=== PATIENT | female | born 1955 | race Two or more races ===

== ENCOUNTER 2019-06-19 10:18 | Inpatient (IN) | payer MEDICARE, MEDICAID ==
[~2019-06-19] VITALS: Ht 154.9 cm; Wt 69.9 kg
--- NOTE | 2019-06-19 10:23 | NUR ---
dr millard at bedside for eval.
[2019-06-19] MEDS ORDERED: IV NS 0.9% 500 ML BAG IV ONE (10:30)
[2019-06-19] MEDS ORDERED: ALBUTEROL FS 2.5 MG/3 ML VIAL.NEB NEB ONE (10:30)
[2019-06-19] MEDS ORDERED: IPRATROPIUM NEB FS 0.5 MG/2.5 ML AMPUL.NEB NEB ONE (10:30)
[2019-06-19] MEDS ORDERED: ACET-2605 PO (10:37)
[2019-06-19] MEDS ORDERED: IPRA3AMP23 IH (10:37)
[2019-06-19] MEDS ORDERED: BISA10SU11 RC (10:37)
[2019-06-19] MEDS ORDERED: MAGN400O6 PO (10:37)
[2019-06-19] MEDS ORDERED: CLON0.1T PO (10:37)
[2019-06-19] MEDS ORDERED: RISP0.2515 PO (10:37)
[2019-06-19] MEDS ORDERED: FURO-144 PO (10:37)
[2019-06-19] MEDS ORDERED: ACET-868 PO (10:37)
[2019-06-19] MEDS ORDERED: GUAI100S11 PO (10:37)
[2019-06-19] MEDS ORDERED: NA P133E RC (10:37)
[2019-06-19] MEDS ORDERED: AMLO10TA7 PO (10:37)
[2019-06-19] MEDS ORDERED: METO25TA20 PO (10:37)
[2019-06-19] MEDS ORDERED: HYDR100T27 PO (10:37)
[2019-06-19] MEDS ORDERED: ALBUTEROL FS 2.5 MG/3 ML VIAL.NEB ONE (10:39)
[2019-06-19] MEDS ORDERED: IPRATROPIUM NEB FS 0.5 MG/2.5 ML AMPUL.NEB ONE (10:39)
--- NOTE | 2019-06-19 10:40 | NUR ---
blood drawn. lab called for pick pack worker.
[2019-06-19 10:45] LABS: BASOPHILS % (AUTO) 0.3 % (0.0-2.0); HEMATOCRIT 38 % (33-45); HEMOGLOBIN 12.3 g/dL (11.5-14.8); LYMPHOCYTES # (AUTO) 1.1 /CMM (0.8-4.8); LYMPHOCYTES % (AUTO) 7.3 % (20.0-44.0); MEAN CORPUSCULAR HGB CONC 32 g/dl (31.0-36.0); MEAN CORPUSCULAR VOLUME 86 fL (82-100); MONOCYTES # (AUTO) 1.9 /CMM (0.1-1.30); MONOCYTES % (AUTO) 12.3 % (2.0-12.0); NEUTROPHILS # (AUTO) 12.3 /CMM (1.8-8.9); NEUTROPHILS % (AUTO) 80.1 % (43.0-81.0); PLATELET COUNT (AUTO) 323 /CMM (150-450); RED BLOOD CELL COUNT(AUTO) 4.49 MIL/uL (4.0-5.2); WHITE BLOOD COUNT (AUTO) 15.3 K/uL (4.3-11.0)
[2019-06-19 10:53] LABS: CALCIUM, SERUM 9.2 mg/dL (8.5-10.1); CARBON DIOXIDE 36 mmol/L (21-32); CHLORIDE 100 mmol/L (98-107); CREATININE 0.8 mg/dL (0.6-1.3); GLUCOSE 180 mg/dL (74-106); POTASSIUM 3.6 mmol/L (3.5-5.1); SODIUM SERUM 142 mmol/L (136-145); UREA NITROGEN, BLOOD 14 mg/dL (7-18)
--- NOTE | 2019-06-19 10:58 | NUR ---
radiology at bedside for chest xray.
--- NOTE | 2019-06-19 11:00 | NUR ---
pt unable to provide urine sample at this time.
[2019-06-19 11:07] LABS: ALANINE AMINOTRANSFERASE 8 U/L (12-78); ALBUMIN 3.1 g/dL (3.4-5.0); ALKALINE PHOSPHATASE 82 U/L (46-116); ASPARTATE AMINOTRANSFERASE 11 U/L (15-37); B-TYPE NATRIURETIC PEPTIDE 2539 PG/ML (0-125); BILIRUBIN,DIRECT 0.1 mg/dL (0.0-0.2); BILIRUBIN,TOTAL 0.4 mg/dL (0.2-1.0); TOTAL PROTEIN, SERUM 7.5 g/dL (6.4-8.2)
--- NOTE | 2019-06-19 11:07 | NUR ---
CALLED NURSING SUP FOR TELE BED.
--- NOTE | 2019-06-19 11:28 | NUR ---
PAGED [facility].
--- NOTE | 2019-06-19 11:45 | NUR ---
GAS PLANT REPAIRER NOTE PATIENT TRANSFERED FROM ER FOR COPD EXACERBATION. IV RAC PATENT AND FLUSHING. PATIENT REFUSED TO PUT ON TELY BOX. REFUSES MEDICATION. CONTINUOUSLY IS ATTEMPTING TO STAND UP UNSAFE, BED ALARM ON. ATTEMTPING TO PULL OUT IV. IS CONFUSED AND BLOOD PRESSURE IS ELEVATED. MD AWARE. RESTAINTS IN PLACE
--- NOTE | 2019-06-19 11:48 | NUR ---
REPORT GIVEN TO RAHUL LUCERO FOR ANGEL
[2019-06-19] MEDS ORDERED: CEFTRIAXONE 1GM BAG (ER ONLY) 50 ML IV ONE (11:57)
[2019-06-19] MEDS ORDERED: CEFTRIAXONE 1GM BAG (ER ONLY) 1 GM/50 ML PIGGYBACK IV ONE (12:00)
[2019-06-19] MEDS ORDERED: AZITHROMYCIN 500 MG in IV D5W 250 ML IV ONE (12:00)
--- NOTE | 2019-06-19 12:10 | NUR ---
NURSING SUP GAVE TELE BED 114-2.
--- NOTE | 2019-06-19 12:29 | NUR ---
SECOND ATTEMPT TO PAGE DIANEN.
[2019-06-19 13:26] VITALS: BP 148/77
[2019-06-19] MEDS ORDERED: MISCELLANEOUS MED 1 EA EA PO PRN (14:00)
[2019-06-19] MEDS ORDERED: ACETAMINOPHEN 325 MG TABLET PO PRN ×2 (14:00)
[2019-06-19] MEDS ORDERED: HYDROCODONE/APAP 5/325MG 1 EACH TABLET PO PRN (14:00)
[2019-06-19] MEDS ORDERED: MAG HYDROX/AL HYDROX/SIMETH 30 ML UDC PO PRN (14:00)
[2019-06-19] MEDS ORDERED: GUAIFENESIN 300 MG/15 ML UDC PO PRN (14:00)
[2019-06-19] MEDS ORDERED: Medication Not On Formulary EA (Ipratropium/Albuterol Sulfate (Duoneb 2.5-0.5 Mg/3 Ml So IH PRN (14:00)
[2019-06-19] MEDS ORDERED: CLONIDINE HCL 0.1 MG TABLET PO PRN (14:00)
[2019-06-19] MEDS ORDERED: ZOLPIDEM TARTRATE 5 MG TABLET PO PRN (14:00)
[2019-06-19] MEDS ORDERED: BISACODYL SUPP (10 MG) 10 MG/SUPP.RECT SUPP.RECT RC PRN (14:00)
[2019-06-19] MEDS ORDERED: Z GUARD REMEDY 2 OZ OINT TP PRN (14:00)
[2019-06-19] MEDS ORDERED: NA PHOS,M-B/NA PHOS,DI-BA 1 EA ENEMA RC PRN (14:00)
[2019-06-19] MEDS ORDERED: MAGNESIUM HYDROXIDE 30 ML UDC PO PRN ×2 (14:00)
[2019-06-19] MEDS ORDERED: ONDANSETRON HCL/PF 4 MG/2 ML VIAL IVP PRN (14:00)
[2019-06-19] MEDS ORDERED: IPRATROPIUM NEB FS 0.5 MG/2.5 ML AMPUL.NEB NEB PRN (14:30)
[2019-06-19] MEDS ORDERED: ALBUTEROL FS 2.5 MG/3 ML VIAL.NEB NEB PRN (14:30)
[2019-06-19] MEDS ORDERED: LORAZEPAM INJ 2 MG/ML VIAL IV PRN (15:00)
[2019-06-19] MEDS ORDERED: hydrALAZINE HCL IV 20 MG VIAL IV PRN (15:30)
[2019-06-19 16:00] VITALS: BP 145/75
--- NOTE | 2019-06-19 16:00 | NUR ---
RN NOTE PATIENT IS REFUSING TO EAT AND DRINK. RN REQUEST IVP BLOOD PRESSURE MEDICATION IN CASE MD AWARE NEW ODERS PLACEED.
[2019-06-19 17:00] VITALS: BP 182/84
[2019-06-19] MEDS: risperiDONE 1 MG TABLET PO SCH (17:00)
[2019-06-19] MEDS: hydrALAZINE HCL 50 MG TABLET PO SCH (18:16)
[2019-06-19] MEDS ORDERED: ACETAMINOPHEN 650 MG/SUPP.RECT RC PRN (18:30)
[2019-06-19] MEDS ORDERED: ENALAPRILAT DIHYD. (2.5MG/ML) 1.25 MG/ML VIAL IV ONE (18:30)
--- NOTE | 2019-06-19 18:30 | NUR ---
RN NOTE BLOOD PRESSURE RN CONTACTED HYDRALAZINE IV PUSH NOT EFFECTIVE IN DROPPING BLOOD PRESSURE. AWARE, ORDER FOR VASOTECT BY PRIMARY IV PUSHED BY RN. PPATIENT IS REFUSING ALL PO MEDICAATION AND REFUSING TO EAT WELL. CALL LIGHT WITHIN REACH ALL NEEDS MET AT THIS TIME. BED IN LOW POSTION.
--- NOTE | 2019-06-19 19:16 | NUR ---
RN CLOSING NOTE RN ENDORSE TO NIIGHT SHIFT REGARDING BLOOD PRESSURE AND TO PAGE IF INNEFFECTIVE. HEART RATE HAS GONE DOWN RN GAVE TYLENOL SUPPOSITORY , ICE PACKS WELL TO DECREASE HEART RATE AND LOWER TEMP. WAS EFFECTIVE HR DROPED TO 125 AND FEVER 99. WILL ENDORSE TO NIGHT NURSE USE CAUTON WITH BP MEDICATION DUE TO IVP DURING DAY.
--- NOTE | 2019-06-19 19:30 | NUR ---
RN PM OPENING NOTE BEDSIDE REPORT RECIEVED FROM RAHUL LUCERO. PATIENT SEEN IN BED LETHARGIC IN BILATERAL WRIST RESTRAINTS D/T BEING COMBATIVE AND NON COMPLIANT EARLIER IN THE DAY PER REPORT. IV IS HEPLOCKED. PATIENT ON 4LNC IN SEMI FOWLERS POSITION NOTED TO BE TACHYPNEIC WITH INCREASED HR IN KATHLEEN 150'S PER SPO2 MONITOR AT BEDSIDE. PATIENT CURRENTLY A MED SURGE PATIENT. BED DOWN LOCKED CALL LIGHT WITHIN REACH. WILL CONT TO MONITOR.
[2019-06-19 20:00] VITALS: BP 151/62
[2019-06-19] MEDS: METOPROLOL TARTRATE 50 MG TABLET PO SCH (21:00)
--- NOTE | 2019-06-19 21:05 | NUR ---
JOSIE LITTLE, PATIENT IS TOO LETHARGIC TO TAKE ORAL MEDICATIONS. RESPIRATORY THERAPIST IN AND RECOMMENDED PATIENT HAVE ABG PERFORMED TO SEE PATIENT STATUS. AT THIS TIME SHE IS SAT 90% ON 4 LN WITH HR OF 144. Addendum: 06/19/19 at 2124 by LISANDRO HER RN SPOKE WITH MICKEY UPDATED ON PATIENT CONDITION NEW ORDER FOR STAT ABG RECIEVED. WILL CONT TO MONITOR.
[2019-06-19 21:34] LABS: ABG OXYGEN SATURATION 86.6 % (92.0-98.5); ABG PCO2 81.8 mmHg (35.0-45.0); ABG PO2 60.3 mmHg (75.0-100.0); AaDO2 130.8 mmHg; COHb 0.8 % (0.5-1.5); MetHb 0.5 % (0.0-1.5); O2Hb 85.5 % (94.0-97.0); SITE, ABG Right Radial; VENT MODE, BG NASAL CANNULA @ 40%
--- NOTE | 2019-06-19 21:47 | NUR ---
NEW ORDERS TO TRANFER TO ICU. MICKEY CALLED REVIEWED ABG RESULTS. PATIENT HAS CO2 OF 81.8. NEW ORDER FOR RESCUE BIPAP RECIEVED, TRANSFER TO ICU. STAT CXR AND NEW ABG TO BE DONE IN ONE HOUR. WATERPROOF COATING MACHINE TENDER NOTIFIED OF NEW TRANSFER ORDER.
--- NOTE | 2019-06-19 21:50 | NUR ---
RT NOTE OBTAINED ABG AND RESULTS. RESULTS GIVEN TO NIC MCMAHON. WAITING FOR PENDING ORDERS AT THIS TIME. WILL CONTINUE TO MONITOR CLOSELY.
[2019-06-19] MEDS: AMLODIPINE BESYLATE 10 MG TABLET PO SCH (22:00)
--- NOTE | 2019-06-19 22:00 | NUR ---
NORVASC AND LOPRESSOR HELD. PT LETHARGIC. NORVASC AND METOPROLOL HELD PATIENT TOO LETHARGIC TO SWALLOW MEDS AND WATER SAFELY, NOT FOLLOWING INSTRUCTIONS.
--- NOTE | 2019-06-19 22:10 | NUR ---
REPORT GIVEN TO ED RN. PATIENT TO BE TRANSFERRED TO ROOM 252
[2019-06-19 22:45] VITALS: BP 122/62
[2019-06-19 23:00] VITALS: BP 93/53
[2019-06-19 23:50] LABS: ABG BASE EXCESS 5.3 mmol/L; ABG OXYGEN SATURATION 89.7 % (92.0-98.5); ABG PH 7.361 (7.350-7.450); ABG PO2 57.2 mmHg (75.0-100.0); AaDO2 161.3 mmHg; COHb 0.6 % (0.5-1.5); MetHb 0.4 % (0.0-1.5); O2Hb 88.8 % (94.0-97.0); SITE, ABG Right Radial; VENT MODE, BG ST 20/5 40% RR 20
[2019-06-20] VITALS (32 sets, daily range): BP systolic 90–161; BP diastolic 51–109
[2019-06-20 01:55] LABS: APPEARANCE,URINE CLOUDY (CLEAR); BILIRUBIN,URINE NEGATIVE (NEGATIVE); BLOOD, URINE MODERATE Ery/uL (NEGATIVE); COLOR,URINE YELLOW (YELLOW); KETONES,URINE 15 (NEGATIVE); LEUKOCYTE ESTERASE ,URINE NEGATIVE (NEGATIVE); NITRITE, URINE NEGATIVE (NEGATIVE); PH,URINE 5.5 (5.0-8.0); PROTEIN,URINE 100 mg/dl (NEGATIVE); UGLUCOSE NEGATIVE (NEGATIVE); UROBILINOGEN,URINE 0.2 EU/dL (0.2)
[2019-06-20 02:07] LABS: BACTERIA,URINE Few /HPF (None Seen); SQUAMOUS EPITHELIAL CELL,UR Few /HPF (None Seen)
[2019-06-20 02:08] LABS: URINE AMORPHOUS URATE Many /HPF (None Seen)
[2019-06-20 05:07] LABS: BASOPHILS % (AUTO) 0.2 % (0.0-2.0); EOSINOPHILS % (AUTO) 0.1 % (0.0-6.0); HEMATOCRIT 36 % (33-45); HEMOGLOBIN 11.4 g/dL (11.5-14.8); LYMPHOCYTES # (AUTO) 0.9 /CMM (0.8-4.8); LYMPHOCYTES % (AUTO) 6.9 % (20.0-44.0); MEAN CORPUSCULAR HGB CONC 32 g/dl (31.0-36.0); MEAN CORPUSCULAR VOLUME 87 fL (82-100); MONOCYTES # (AUTO) 1.7 /CMM (0.1-1.30); MONOCYTES % (AUTO) 12.9 % (2.0-12.0); NEUTROPHILS # (AUTO) 10.7 /CMM (1.8-8.9); NEUTROPHILS % (AUTO) 79.9 % (43.0-81.0); PLATELET COUNT (AUTO) 287 /CMM (150-450); WHITE BLOOD COUNT (AUTO) 13.4 K/uL (4.3-11.0)
[2019-06-20 05:17] LABS: CALCIUM, SERUM 8.6 mg/dL (8.5-10.1); MAGNESIUM 1.5 mg/dL (1.8-2.4); PHOSPHORUS 3.4 mg/dL (2.5-4.9); POTASSIUM 3.7 mmol/L (3.5-5.1)
--- NOTE | 2019-06-20 06:04 | NUR ---
LAY OUT INSPECTOR PT REMAINS ON BIPAP-SETTING 20/5-20-40%. TOLERATES WELL. ABG WAS REPEATED/ SEE RESULTS/. VSS, AFEBRILE, SCOPE-ST. PT IS MORE AWAKE, RESPONSE TO VOICE, MOVES ARMS, DOES NOT FOLLOW COMMANDS. ANXIOUS& AGITATED AT TIMES, TRYING TO PULL OUT BIPAP MASK. SOFT WRIST RESTRAINS ON. SECOND IV ACCESS INSERTED ON RIGHT EXTERNAL JUGULAR VEIN. F/C DRAINS SMALL AMT. OF URINE. PT KEPT NPO- RISK FOR ASPIRATION.
--- NOTE | 2019-06-20 07:00 | NUR ---
Received patient asleep on bed. On BIPAP machine on, tolerating settings well. Vital signs WNL. No respiratory distress noted. With soft restraints intact on both wrists, circulation intact. Aranda cath inatct with teresita colored urine.
--- NOTE | 2019-06-20 08:05 | NUR ---
BIPAP changed to NC @ 6 LPM, FIO2 44%. Tolerating well @ 40%. No respiratory distress noted. Dr. Chamberlain and Dr. Zazueta making rounds are aware.
[2019-06-20] MEDS: hydrALAZINE HCL 50 MG TABLET PO SCH ×3 (08:38→18:20)
[2019-06-20] MEDS: METOPROLOL TARTRATE 50 MG TABLET PO SCH ×2 (08:38→20:36)
[2019-06-20] MEDS: risperiDONE 1 MG TABLET PO SCH ×2 (08:40→18:20)
[2019-06-20] MEDS: FUROSEMIDE 40 MG TABLET PO SCH (08:40)
[2019-06-20 10:35] LABS: ABG BASE EXCESS 9.2 mmol/L; ABG OXYGEN SATURATION 87.9 % (92.0-98.5); ABG PCO2 66.9 mmHg (35.0-45.0); ABG PH 7.359 (7.350-7.450); ABG PO2 56.7 mmHg (75.0-100.0); AaDO2 151.6 mmHg; COHb 0.3 % (0.5-1.5); MetHb 0.8 % (0.0-1.5); O2Hb 86.9 % (94.0-97.0); SITE, ABG Right Radial; VENT MODE, BG 5l nc
[2019-06-20] MEDS: methylPREDNISolone SOD SUCC 125 MG/2ML VIAL IV SCH ×3 (11:10→20:35)
[2019-06-20] MEDS: ENOXAPARIN SODIUM 40 MG/0.4 ML DISP.SYRIN SQ SCH (11:12)
[2019-06-20] MEDS: Magnesium 1GM/D5W 100ML PREMIX 100 ML IV SCH ×2 (11:13→12:52)
[2019-06-20] MEDS: IPRATROPIUM NEB FS 0.5 MG/2.5 ML AMPUL.NEB NEB SCH ×5 (11:30→23:06)
[2019-06-20] MEDS: ALBUTEROL FS 2.5 MG/3 ML VIAL.NEB NEB SCH ×5 (11:30→23:06)
[2019-06-20] MEDS: CEFTRIAXONE 1 G in IV D5W 50 ML IV SCH (12:33)
[2019-06-20] MEDS: AZITHROMYCIN 500 MG in IV D5W 250 ML IV SCH (13:53)
--- NOTE | 2019-06-20 19:05 | NUR ---
Report given to ED RN. Patient on bed, cope's position. Alert and oriented X2. Confused. On O2 per NC @ 4LPM. No respiratory distress noted. O2 saturation 92%. With perry cath intact and patent. Right jugular saline lock intact. Left AC saline lock intact.
[2019-06-20] MEDS: AMLODIPINE BESYLATE 10 MG TABLET PO SCH (21:32)
[2019-06-21] VITALS (16 sets, daily range): BP systolic 124–167; BP diastolic 63–81
[2019-06-21] MEDS: IPRATROPIUM NEB FS 0.5 MG/2.5 ML AMPUL.NEB NEB SCH ×6 (03:30→23:20)
[2019-06-21] MEDS: ALBUTEROL FS 2.5 MG/3 ML VIAL.NEB NEB SCH ×6 (03:30→23:20)
[2019-06-21 05:05] LABS: BASOPHILS % (AUTO) 0.3 % (0.0-2.0); HEMATOCRIT 33 % (33-45); HEMOGLOBIN 10.7 g/dL (11.5-14.8); LYMPHOCYTES # (AUTO) 0.5 /CMM (0.8-4.8); LYMPHOCYTES % (AUTO) 4.8 % (20.0-44.0); MEAN CORPUSCULAR HGB CONC 32 g/dl (31.0-36.0); MEAN CORPUSCULAR VOLUME 87 fL (82-100); MONOCYTES # (AUTO) 0.3 /CMM (0.1-1.30); MONOCYTES % (AUTO) 3.6 % (2.0-12.0); NEUTROPHILS # (AUTO) 8.7 /CMM (1.8-8.9); NEUTROPHILS % (AUTO) 91.3 % (43.0-81.0); PLATELET COUNT (AUTO) 254 /CMM (150-450); RED BLOOD CELL COUNT(AUTO) 3.83 MIL/uL (4.0-5.2); WHITE BLOOD COUNT (AUTO) 9.5 K/uL (4.3-11.0)
[2019-06-21] MEDS: methylPREDNISolone SOD SUCC 125 MG/2ML VIAL IV SCH ×3 (05:19→12:37)
[2019-06-21 05:37] LABS: CALCIUM, SERUM 8.6 mg/dL (8.5-10.1); CREATININE 1.1 mg/dL (0.6-1.3); MAGNESIUM 2.1 mg/dL (1.8-2.4); POTASSIUM 4.2 mmol/L (3.5-5.1)
--- NOTE | 2019-06-21 06:23 | NUR ---
AVIATION MANAGER PT IS AWAKE, ALERT, ORIENTED X 2, BUT NONCOMPLIANT, UNCOOPERATIVE, AND EVEN AGGRESSIVE AT TIMES. O2 4 L VIA N/C TOLERATES WELL. NO BIPAP STARTED AT NIGHT TIME. H.L. F/C DRAINS SUFFICIENT AMT. OF CLOUDY URINE. PT REFUSED TO HAVE A BATH, WELL TO DO ACCU CHECK. /TO CLARIFY WITH A.M. LAB. GLUCOSE LEVEL 499/. VSS, AFEBRILE, SCOPE-ST.
--- NOTE | 2019-06-21 07:10 | NUR ---
ENVIRONMENTAL ADVISER INITIAL NOTES Rec'd pt on bed, not in any distress, A/O x 2, confused. On NC at 4lpm, denies SOB. ST on telemonitor. IV line access patent & intact w/ no s/sx of infection/infiltration noted. Has FC draining to BSB w/ adequate yellowish UOP. Safety precaution in place w/ bed in lowest & locked pos. Call light placed w/in reach. Will cont to monitor & attend pt needs.
--- NOTE | 2019-06-21 07:30 | NUR ---
Critical result: Glucose 499, fingerstick 389 - Dr. Anderson made aware w/ orders to start pt on moderate SSI ACHS.
[2019-06-21] MEDS: BLOOD SUGAR DIAGNOSTIC 1 EACH STRIP VI SCH ×3 (07:57→17:22)
[2019-06-21] MEDS ORDERED: *INSULIN REGULAR(HUMULIN R)HUM 100 UNIT/ML VIAL SQ PRN (08:00)
[2019-06-21] MEDS ORDERED: DEXTROSE 50%-WATER 50 ML DISP.SYRIN IV PRN (08:00)
[2019-06-21] MEDS: INSULIN REGULAR, HUMAN 100 UNIT/ML 3 ML VIAL SQ PRN ×3 (08:11→17:21)
[2019-06-21] MEDS: risperiDONE 1 MG TABLET PO SCH ×2 (08:13→17:00)
[2019-06-21] MEDS: METOPROLOL TARTRATE 50 MG TABLET PO SCH (08:14)
[2019-06-21] MEDS: hydrALAZINE HCL 50 MG TABLET PO SCH ×3 (08:14→17:00)
[2019-06-21] MEDS: ENOXAPARIN SODIUM 40 MG/0.4 ML DISP.SYRIN SQ SCH (08:14)
[2019-06-21] MEDS: FUROSEMIDE 40 MG TABLET PO SCH (08:14)
--- NOTE | 2019-06-21 08:30 | NUR ---
Pt seen & examined by Dr. Anderson. Per MD, may downgrade to Tele. CN made aware.
--- NOTE | 2019-06-21 09:00 | NUR ---
Pt seen & examined by Dr. Chamberlain, adrianaay to downgrade. Aware that pt refusing nocturnal BIPAP.
[2019-06-21] MEDS: METFORMIN 500 MG TABLET PO SCH (09:02)
--- NOTE | 2019-06-21 09:25 | NUR ---
ICU TRANSFER NOTES Pt transferred to Tel 117/1 as ordered. Pt remains A/O x 2, confused. No SOB while on NC at 4lpm, but still having productive cough, yellowish sputum. IV lines access kept patent & intact w/ no s/sx of infection/infiltration noted. FC kept in place. All belongings sent w/ pt including meds. No issues/concerns identified during transfer. Report given to Albaro LUCERO for ANGEL.
--- NOTE | 2019-06-21 09:42 | NUR ---
MAIL INSERTER NOTES PT TRANSFERRED FROM ICU TO UNIT AT ROOM 117-1 VIA BED AT 0930 ACCOMPANIED BY NIC CORNELIUS. PT IS A/O X2 AND VERBALLY RESPONSIVE, DENIES PAIN OR DISCOMFORTS AT THIS TIME. PT ORIENTED TO ROOM AND STAFF. PT ON ROOM AIR, TOLERATING WELL WITH NO SOB NOTED. NOTED COUGHING ON AND OFF. V/S TAKEN: BP 153/79, P 108, R 20, T 98.8F AND SP02 94%. TELE-MONITORING SHOWS ST WITH HR OF 108, NO C/O CARDIAC DISTRESS VOICED. PT WITH JIMENEZ IN PLACE AND NOTED WITH CLEAR YELLOWISH URINE OUTPUT. PIV'S SL ON LAC G#20 AND RIGHT EJ G#20 BOTH INTACT, PATENT AND FLUSHES WELL. SAFETY MEASURES INITIATED. BED IN PLACED IN LOWEST LOCKED POSITION WITH SR UP X2. CALL LIGHT WITHIN REACH. WILL CONTINUE TO MONITOR PT ACCORDINGLY.
--- NOTE | 2019-06-21 09:43 | NUR ---
RN NOTES PATIENT PLACED ON SUPPLEMENTAL 02 VIA N/C AT 4LPM ORDERED. WILL CONTINUE TO MONITOR.
[2019-06-21] MEDS: CEFTRIAXONE 1 G in IV D5W 50 ML IV SCH (11:39)
[2019-06-21] MEDS: AZITHROMYCIN 500 MG in IV D5W 250 ML IV SCH (12:31)
--- NOTE | 2019-06-21 18:51 | NUR ---
JOURNEYMAN WELDER CLOSING PT IN BED AWAKE AND RESTING AT MODERATE HIGH BACKREST POSITION. A/O X2 AND VERBALLY RESPONSIVE., CONFUSED AT TIMES. ON 02 VIA N/C AT 4LPM, TOLERATING WELL WITH NO SOB NOTED. TELE-MONITORING SHOWS ST WITH HR OF 110 AT THIS TIME, NO C/O CARDIAC DISTRESS VOICED DURING THE DAY. JIMENEZ CATHETER IN PLACE WITH CLEAR YELLOWISH URINE OUTPUT NOTED, JIMENEZ CARE DONE. PIV SL ON RIGHT EJ G#20 INTACT, PATENT AND FLUSHES WELL. ALL NEEDS AND CARE ATTENDED WELL. SAFETY MEASURES KEPT IN PLACE. BED IN PLACED IN LOWEST LOCKED POSITION WITH SR UP X2. CALL LIGHT WITHIN REACH. WILL ENDORSE TO COMPLETION MANAGER NURSE FOR ANGEL
--- NOTE | 2019-06-21 18:55 | NUR ---
RN NOTES INFORMED DR COLÓN IF IT'S OK TO DISCONTINUE PT'S JIMENEZ CATHETER AND SAID YES.
--- NOTE | 2019-06-21 19:02 | NUR ---
RN NOTES JIMENEZ CATHETER REMOVED WITHOUT PROBLEM. NO HEMATURIA NOTED.
[2019-06-22] VITALS: BP 151/69
[2019-06-22] MEDS: METOPROLOL TARTRATE 50 MG TABLET PO SCH ×2 (00:16→10:39)
[2019-06-22] MEDS: methylPREDNISolone SOD SUCC 125 MG/2ML VIAL IV SCH ×3 (00:16→13:00)
[2019-06-22] MEDS: AMLODIPINE BESYLATE 10 MG TABLET PO SCH (00:17)
[2019-06-22] MEDS: BLOOD SUGAR DIAGNOSTIC 1 EACH STRIP VI SCH ×3 (00:23→12:12)
--- NOTE | 2019-06-22 00:25 | NUR ---
RN NOTES, PATIENT REFUSED MEDS EARLIER, EXPLAINED RISKS AND BENEFITS, STILL REFUSED, AT THIS TIME, PATIENT ACCEPTED MEDS, BUT REFUSED INSULIN COVERAGE, SHE SAID SHE'LL PREFER METFORMIN IN THE MORNING, EXPLAINED SHASHI OF CARE, AND THE COMBINATION OF METFORMIN AND INSULIN COVERAGE, STILL REFUSED, WILL CONTINUE TO MONITOR CLOSELY.
[2019-06-22 01:00] VITALS: BP 151/69
[2019-06-22] MEDS: IPRATROPIUM NEB FS 0.5 MG/2.5 ML AMPUL.NEB NEB SCH ×4 (02:39→15:30)
[2019-06-22] MEDS: ALBUTEROL FS 2.5 MG/3 ML VIAL.NEB NEB SCH ×4 (02:39→15:30)
[2019-06-22 05:00] VITALS: BP 151/69
--- NOTE | 2019-06-22 07:15 | NUR ---
RN NOTES, no significant change in condition throughout the night, , will endorse continuity of care to oncoming nurse, refused solu-medrol this morning, will endorse to oncoming nurse to f/u.
[2019-06-22 08:00] VITALS: BP 128/58
--- NOTE | 2019-06-22 08:00 | NUR ---
OUTSOLE COMPRESSOR OPENING NOTES Received Patient asleep and resting in bed. A/O x 1-2. VS stable with no acute distress. Breathing even and unlabored on room air with no respiratory distress. Denies pain. No signs and symptoms of pain. Patient refused telemonitor to be in place. Patient states, " I do not want that sticky stuff on me. I'm allergic to that." Skin noted to be clean, dry, and intact. No allergic reactions noted. No PIV noted. Patient refused for PIV insertion at this time. Safety precautions in place. Bed locked and set to lowest position with side rails x 2 up. All needs rendered at this time. Call light within reach. Will continue to monitor.
[2019-06-22 09:00] VITALS: BP 128/58
[2019-06-22] MEDS: hydrALAZINE HCL 50 MG TABLET PO SCH ×2 (10:38→13:23)
[2019-06-22] MEDS: ENOXAPARIN SODIUM 40 MG/0.4 ML DISP.SYRIN SQ SCH (10:39)
[2019-06-22] MEDS: FUROSEMIDE 40 MG TABLET PO SCH (10:39)
[2019-06-22] MEDS: METFORMIN 500 MG TABLET PO SCH ×2 (10:39→13:21)
[2019-06-22] MEDS: risperiDONE 1 MG TABLET PO SCH (10:39)
[2019-06-22] MEDS ORDERED: AZITHROMYCIN 250 MG TABLET PO SCH (11:00)
[2019-06-22] MEDS: CEFTRIAXONE 1 G in IV D5W 50 ML IV SCH (12:00)
--- NOTE | 2019-06-22 12:02 | NUR ---
MANAGER OF PURCHASING NOTES BS - [phone] Patient refused recheck of accucheck. Per Patient, "If my blood sugar is high, it is going to stay high." Explained risks and benefits of accucheck and insulin. Patient refused recheck of accucheck and insulin coverage. MD aware. Patient in stable condition. Will continue to monitor.
[2019-06-22] MEDS ORDERED: LEVO500T75 PO (12:17)
[2019-06-22 16:00] VITALS: BP 146/72
--- NOTE | 2019-06-22 16:44 | NUR ---
SOLUTION MANAGER NOTES Patient discharged for [facility] at this time. Patient in stable condition. VS stable with no acute distress. Breathing even and unlabored on 2LPM via NC with no respiratory distress. Denies pain. No signs and symptoms of pain. Skin intact. Medication reconciliation and discharge orders reviewed and explained to Patient. Patient verbalized understanding. All belongings with Patient. Patient will follow up with PCP and world travel counselor. Patient picked up by [facility].
== END 2019-06-22 14:00 | DRG 190 ==
LOC: ER 10:25 → TELE1 12:30 → MEDSG1 15:14 → ICU 22:11 → TELE1 06-21 09:19
PROVIDERS: ADMIT Family Medicine; ATTEND Family Medicine
PROC: 5A09357 Assistance with Respiratory Ventilation, Less than 24 Consecutive Hours, Continuous Positive Airway Pressure (ICD-10-PCS; principal; 2019-06-20)
DX: J44.0 Chronic obstructive pulmonary disease with (acute) lower respiratory infection (principal); J15.9 Unspecified bacterial pneumonia; J96.02 Acute respiratory failure with hypercapnia; I50.9 Heart failure, unspecified; I11.0 Hypertensive heart disease with heart failure; F20.9 Schizophrenia, unspecified; D72.829 Elevated white blood cell count, unspecified; Z91.14 Patient's other noncompliance with medication regimen; E11.65 Type 2 diabetes mellitus with hyperglycemia; J44.9 Chronic obstructive pulmonary disease, unspecified; F17.210 Nicotine dependence, cigarettes, uncomplicated; E83.42 Hypomagnesemia
CPT/HCPCS: 36415; 36600; 71045-TC; 80048-TC; 80061-TC; 80076-TC; 81000-TC; 82803-TC; 82962-TC; 83605-TC; 83735-TC; 83880; 84100-TC; 84484-TC; 85025-TC; 85730-TC; 87040-TC; 87081-TC; 87086-TC; 94799-TC; 99082-TC; G0378; J0360; J0456; J0696; J1650; J1815; J2060; J2930; J3475; J3490; J7030; J7040; J7050; J7060

== ENCOUNTER 2020-02-01 07:03 | Inpatient (IN) | payer MEDICARE, OTHER ==
[~2020-02-01] VITALS: Ht 154.9 cm; Wt 71.7 kg
[2020-02-01] VITALS (9 sets, daily range): BP systolic 130–146; BP diastolic 67–83
[~2020-02-01 07:03] MED LIST: ACET-2605 PO; ACET-868 PO; AMLO10TA7 PO; BISA10SU11 RC; CLON0.1T PO; FURO-144 PO; GUAI100S11 PO; HYDR100T27 PO; IPRA3AMP23 IH; LEVO500T23 PO; MAGN400O6 PO; METO25TA20 PO; NA P133E RC; RISP0.2515 PO
--- NOTE | 2020-02-01 07:04 | NUR ---
patient aman from [place] [facility], c/o sob 88% on room air, connected to the monitor and pulse ox. kept comfortable, will continue to monitor accordingly.
--- NOTE | 2020-02-01 07:11 | NUR ---
dr king at bed side
--- NOTE | 2020-02-01 07:20 | NUR ---
PT MOVING TOO MUCH TO DO EKG.
[2020-02-01] MEDS ORDERED: IPRATROPIUM NEB FS 0.5 MG/2.5 ML AMPUL.NEB ONE ×2 (07:22→08:30)
[2020-02-01] MEDS ORDERED: ALBUTEROL FS 2.5 MG/3 ML VIAL.NEB ONE ×2 (07:22→08:30)
[2020-02-01] MEDS ORDERED: methylPREDNISolone SOD SUCC 125 MG/2ML VIAL ONE (07:27)
[2020-02-01] MEDS ORDERED: ALBUTEROL FS 2.5 MG/3 ML VIAL.NEB NEB ONE ×2 (07:30→08:30)
[2020-02-01] MEDS ORDERED: IPRATROPIUM NEB FS 0.5 MG/2.5 ML AMPUL.NEB NEB ONE (07:30)
[2020-02-01] MEDS ORDERED: methylPREDNISolone SOD SUCC 125 MG/2ML VIAL IV ONE (07:30)
--- NOTE | 2020-02-01 07:40 | NUR ---
Kim gray in ED - 02/01/20 at 0757 by INO PT MOVING TOO MUCH TO DO EKG. DR. GROVER AWARE.
[2020-02-01 07:57] LABS: APPEARANCE,URINE CLOUDY (CLEAR); BILIRUBIN,URINE NEGATIVE (NEGATIVE); BLOOD, URINE MODERATE Ery/uL (NEGATIVE); COLOR,URINE YELLOW (YELLOW); KETONES,URINE NEGATIVE (NEGATIVE); LEUKOCYTE ESTERASE ,URINE TRACE (NEGATIVE); NITRITE, URINE POSITIVE (NEGATIVE); PROTEIN,URINE 100 mg/dl (NEGATIVE); UGLUCOSE NEGATIVE (NEGATIVE); UROBILINOGEN,URINE 0.2 EU/dL (0.2)
[2020-02-01 07:59] LABS: CALCIUM, SERUM 8.3 mg/dL (8.5-10.1); CREATININE 1.2 mg/dL (0.6-1.3); POTASSIUM 5.4 mmol/L (3.5-5.1)
[2020-02-01] MEDS ORDERED: IV NS 0.9% 500 ML BAG IV ONE (08:00)
[2020-02-01 08:03] LABS: RBC,URINE 21-50 /HPF (0-2)
[2020-02-01 08:04] LABS: BACTERIA,URINE 3+ /HPF (None Seen); SQUAMOUS EPITHELIAL CELL,UR Moderate /HPF (None Seen)
[2020-02-01 08:12] LABS: ALBUMIN 2.7 g/dL (3.4-5.0); BILIRUBIN,DIRECT 0.5 mg/dL (0.0-0.2); BILIRUBIN,TOTAL 0.9 mg/dL (0.2-1.0); TOTAL PROTEIN, SERUM 6.7 g/dL (6.4-8.2)
[2020-02-01 08:24] LABS: BASOPHILS % (AUTO) 0.7 % (0.0-2.0); HEMATOCRIT 55 % (33-45); HEMOGLOBIN 15.1 g/dL (11.5-14.8); LYMPHOCYTES # (AUTO) 0.9 /CMM (0.8-4.8); LYMPHOCYTES % (AUTO) 13.6 % (20.0-44.0); MEAN CORPUSCULAR HGB CONC 28 g/dl (31.0-36.0); MEAN CORPUSCULAR VOLUME 70 fL (82-100); MONOCYTES # (AUTO) 0.9 /CMM (0.1-1.30); MONOCYTES % (AUTO) 14.4 % (2.0-12.0); NEUTROPHILS # (AUTO) 4.6 /CMM (1.8-8.9); NEUTROPHILS % (AUTO) 71.3 % (43.0-81.0); WHITE BLOOD COUNT (AUTO) 6.5 K/uL (4.3-11.0)
[2020-02-01] MEDS ORDERED: LEVOFLOXACIN 750 MG /D5W 150ML 150 ML IV ONE ×2 (08:30→08:33)
[2020-02-01] MEDS ORDERED: PIPERACILLIN /TAZOBACTAM 3.375 G in IV D5W 50 ML IV ONE (08:30)
[2020-02-01] MEDS ORDERED: FUROSEMIDE 20 MG/2 ML VIAL IV ONE (08:30)
--- NOTE | 2020-02-01 08:30 | NUR ---
MOVE SHEET COMPLETED AND CALLED FOR TELE BED.
[2020-02-01] MEDS ORDERED: FUROSEMIDE 20 MG/2 ML VIAL ONE (08:33)
[2020-02-01 09:23] LABS: LYMPHOCYTES % (MANUAL) 16 % (16-48); MONOCYTES % (MANUAL) 8 % (0-11.0); NEUTROPHILS % (MANUAL) 76 (42-76); PLATELET COUNT (AUTO) 149 /CMM (150-450)
[2020-02-01] MEDS ORDERED: ALBUTEROL FS 2.5 MG/0.5 ML VIAL.NEB NEB PRN (10:00)
[2020-02-01] MEDS ORDERED: MAGNESIUM HYDROXIDE 30 ML UDC PO PRN (10:00)
[2020-02-01] MEDS ORDERED: HYDROCODONE/APAP 5/325MG TABLET PO PRN (10:00)
[2020-02-01] MEDS ORDERED: MAG HYDROX/AL HYDROX/SIMETH 30 ML UDC PO PRN (10:00)
[2020-02-01] MEDS ORDERED: DEXTROSE 50%-WATER 50 ML DISP.SYRIN IV PRN (10:00)
[2020-02-01] MEDS ORDERED: IPRATROPIUM NEB FS 0.5 MG/2.5 ML AMPUL.NEB NEB PRN (10:00)
[2020-02-01] MEDS ORDERED: Z GUARD REMEDY 2 OZ OINT TP PRN (10:00)
[2020-02-01] MEDS ORDERED: TEMAZEPAM 7.5 MG CAPSULE PO PRN (10:00)
[2020-02-01] MEDS ORDERED: ACETAMINOPHEN 325 MG TABLET PO PRN (10:00)
[2020-02-01] MEDS ORDERED: ONDANSETRON HCL/PF 4 MG/2 ML VIAL IVP PRN (10:00)
[2020-02-01] MEDS ORDERED: DOCU-141 PO (10:16)
[2020-02-01] MEDS ORDERED: SENN-175 PO (10:16)
[2020-02-01] MEDS ORDERED: RISP3TAB14 PO (10:16)
--- NOTE | 2020-02-01 11:10 | NUR ---
report given to Gallo CN for navneet.
[2020-02-01 11:44] LABS: MAGNESIUM 2.4 mg/dL (1.8-2.4); PHOSPHORUS 4.7 mg/dL (2.5-4.9)
--- NOTE | 2020-02-01 12:33 | NUR ---
wheeled patient via gurney accompanied by RN and emt in no distress. RN at bedside to assume care.
[2020-02-01] MEDS ORDERED: PIPERACILLIN /TAZOBACTAM 3.375 G in IV D5W 50 ML IV SCH (13:00)
--- NOTE | 2020-02-01 13:00 | NUR ---
[facility] RN NOTES RECEIVED PT FROM ER NURSE. GAVE ON BED REPORT. PT IS ALERT AND ORIENTED X2. ON SIMPLE MASK 10 L.SAT IN HIGH 90%. NO ACUTE DISTRESS NOTED. PT WEIGHTED PT USING BED SCALE 174LB. PUT EPIC CUPID ANALYST PT REFUSED. CHECK HER BLOOD SUGAR/2 UNIT INSULIN GIVEN. SAFETY MEASUREMENTS ARE IMPLEMENTED. CALL LIGHT WITHIN REACH.WILL CONTINUE TO MONITOR.
[2020-02-01] MEDS: BLOOD SUGAR DIAGNOSTIC 1 EACH STRIP IN SCH ×3 (13:09→22:15)
[2020-02-01] MEDS: methylPREDNISolone SOD SUCC 40 MG/ML VIAL IV SCH ×2 (13:16→21:38)
[2020-02-01] MEDS: INSULIN REGULAR, HUMAN 100 UNIT/ML 3 ML VIAL SQ PRN ×3 (13:18→22:17)
[2020-02-01] MEDS: IV NS 0.9% 1,000 ML IV PRN (13:33)
[2020-02-01] MEDS ORDERED: PIPERACILLIN /TAZOBACTAM 3.375 G in IV D5W 100 ML IV SCH (14:00)
[2020-02-01] MEDS ORDERED: ALBUTEROL SULFATE INH 18 GM HFA.AER.AD IH PRN (16:00)
[2020-02-01] MEDS ORDERED: HEPARIN SODIUM, PORCINE 5000 UNITS/1 ML VIAL SQ SCH (16:00)
[2020-02-01] MEDS: ENOXAPARIN SODIUM 40 MG/0.4 ML DISP.SYRIN SQ SCH (16:22)
[2020-02-01 16:36] LABS: ABG BASE EXCESS 2.4 mmol/L; ABG OXYGEN SATURATION 90.9 % (92.0-98.5); ABG PCO2 94.6 mmHg (35.0-45.0); ABG PH 7.182 (7.350-7.450); ABG PO2 67.8 mmHg (75.0-100.0); AaDO2 255.9 mmHg; COHb 4.1 % (0.5-1.5); MetHb 0.4 % (0.0-1.5); O2Hb 86.8 % (94.0-97.0); SITE, ABG Right Radial; VENT MODE, BG SM 10 L
--- NOTE | 2020-02-01 17:00 | NUR ---
RECEIVED REPORT FROM NIC RIOS FOR CONTINUITY OF CARE. PATIENT IS STABLE AT THE TIME OF TRANSFER. VSS. SATING WELL ON 10L/MIN O2 VIA NC. PER RN, SHE WILL BE FINISHING THE ADMISSION. SAFETY MEASURES IMPLEMENTED, BED IN LOWEST POSITION, LOCKED, SIDE RAILS UP. WILL CONTINUE TO MONITOR PATIENT.
--- NOTE | 2020-02-01 17:00 | NUR ---
[facility]/ TELE CLOSING NOTES GAVE REPORT TO THEE .PATIENT IS STABLE AT THE TIME OF TRANSFER FROM [facility] TO ICU. VS WNL. O2 VIA NC SATURATING IN 94%. TRANSFER PER ACLS PROTOCOL. PT IS IN STABLE CONDITION.
[2020-02-01] MEDS: IPRATROPIUM/ALBUTEROL INHALER IH SCH ×2 (18:12→23:37)
--- NOTE | 2020-02-01 19:02 | NUR ---
RN CLOSING NOTE: PATIENT REMAINS IN ROOM. NO SIGNS OF ACUTE DISTRESS NOTED AT THIS TIME. ST IN THE 100S NOTED ON THE BEDSIDE MONITOR. SAFETY MEASURES IMPLEMENTED, BED IN LOWEST POSITION, LOCKED, SIDE RAILS UP, CALL LIGHT WITHIN REACH. WILL ENDORSE TO ONCOMING SHIFT RN FOR CONTINUITY OF CARE.
--- NOTE | 2020-02-01 19:05 | NUR ---
LAUNDRY ROUTEMAN NOTE RECEIVED PATIENT IN BED RESTING WITH HOB ELEVATED. ALERT, CONFUSED, ABLE TO MAKE NEEDS KNOWN. BREATHING IS EVEN AND NON LABORED. NO SOB NOTED AT THIS TIME. ON O2 10 LITERS VIA SIMPLE FACE MASK. IV SITE ON LAC GAUGE 20 IS CLEAN, DRY, AND PATENT. IV FLUIDS NS 0.9% RUNNING AT 70 ML/HR. ON BILATERAL SOFT WRIST RESTRAINTS FOR CONSISTENT TAKING OFF O2 PER AM SHIFT REPORT. ON JIMENEZ CATH, URINE IS CLEAR AND YELLOW IN COLOR. PATIENT IS ABLE TO ASSIST IN REPOSITIONING WHILE IN BED. IN NO APPARENT DISTRESS NOTED AT THIS TIME. CALL LIGHT IS WITHIN EASY REACH. WILL CONTINUE TO MONITOR.
[2020-02-01] MEDS: VANCOMYCIN 1 GM in IV D5W 250 ML IV SCH (20:02)
[2020-02-01] MEDS: CEFEPIME 2 GM in IV D5W 100 ML IV SCH (21:38)
[2020-02-02] VITALS (24 sets, daily range): BP systolic 100–143; BP diastolic 44–80
--- NOTE | 2020-02-02 02:00 | NUR ---
MICROWAVE TECHNICIAN NOTE PATIENT IS STABLE AT THIS TIME. ABLE TO TOLERATE BED BATH WELL. NO BM NOTED. WILL CONTINUE TO MONITOR.
[2020-02-02] MEDS: methylPREDNISolone SOD SUCC 40 MG/ML VIAL IV SCH ×3 (04:28→21:03)
[2020-02-02 04:29] LABS: BASOPHILS % (AUTO) 0.1 % (0.0-2.0); HEMATOCRIT 53 % (33-45); HEMOGLOBIN 14.4 g/dL (11.5-14.8); LYMPHOCYTES # (AUTO) 0.1 /CMM (0.8-4.8); LYMPHOCYTES % (AUTO) 2.8 % (20.0-44.0); MEAN CORPUSCULAR HGB CONC 27 g/dl (31.0-36.0); MEAN CORPUSCULAR VOLUME 70 fL (82-100); MONOCYTES # (AUTO) 0.5 /CMM (0.1-1.30); MONOCYTES % (AUTO) 8.9 % (2.0-12.0); NEUTROPHILS # (AUTO) 4.5 /CMM (1.8-8.9); NEUTROPHILS % (AUTO) 88.2 % (43.0-81.0); PLATELET COUNT (AUTO) 159 /CMM (150-450); RED BLOOD CELL COUNT(AUTO) 7.55 MIL/uL (4.0-5.2); WHITE BLOOD COUNT (AUTO) 5.1 K/uL (4.3-11.0)
[2020-02-02 04:56] LABS: ALANINE AMINOTRANSFERASE < 6 U/L (12-78); ALBUMIN 2.3 g/dL (3.4-5.0); ALKALINE PHOSPHATASE 75 U/L (46-116); ASPARTATE AMINOTRANSFERASE 14 U/L (15-37); BILIRUBIN,TOTAL 0.6 mg/dL (0.2-1.0); CALCIUM, SERUM 7.8 mg/dL (8.5-10.1); CARBON DIOXIDE 35 mmol/L (21-32); CHLORIDE 101 mmol/L (98-107); CREATININE 1.3 mg/dL (0.6-1.3); GLUCOSE 166 mg/dL (74-106); MAGNESIUM 2.2 mg/dL (1.8-2.4); PHOSPHORUS 5.8 mg/dL (2.5-4.9); POTASSIUM 5.4 mmol/L (3.5-5.1); SODIUM SERUM 140 mmol/L (136-145); UREA NITROGEN, BLOOD 49 mg/dL (7-18)
[2020-02-02] MEDS: IPRATROPIUM/ALBUTEROL INHALER IH SCH (05:07)
[2020-02-02 06:13] LABS: CHOLESTEROL 112 mg/dL (<200); HDL CHOLESTEROL 17 mg/dL (40-60); TRIGLYCERIDES 53 mg/dL (30-150)
[2020-02-02 06:15] LABS: LDL 90 mg/dL (0-99)
--- NOTE | 2020-02-02 06:30 | NUR ---
TRANSPORTATION PLANNER NOTE RECEIVED CALL FROM LAB THAT PATIENT IS NEGATIVE FOR COVID PCR.
[2020-02-02 06:39] LABS: LYMPHOCYTES % (MANUAL) 3 % (16-48); MONOCYTES % (MANUAL) 5 % (0-11.0); NEUTROPHILS % (MANUAL) 92 (42-76)
[2020-02-02] MEDS: BLOOD SUGAR DIAGNOSTIC 1 EACH STRIP IN SCH ×3 (07:34→17:09)
--- NOTE | 2020-02-02 07:35 | NUR ---
INVESTIGATIVE WRITER NOTE PATIENT REMAINED STABLE THROUGHOUT THE NIGHT. HAD EPISODE OF HYPOXIA AROUND 0600. FACE MASK ADJUSTED AND HOB ELEVATED TO HIGH FOWLERS. O2 SAT IS 94% AT THIS TIME. PATIENT WAS KEPT CLEAN, DRY, AND COMFORTABLE. REPOSITIONED Q2H. ENDORSED TO AM SHIFT RN FOR CONTINUATION OF CARE.
[2020-02-02] MEDS: INSULIN REGULAR, HUMAN 100 UNIT/ML 3 ML VIAL SQ PRN ×2 (07:36→17:15)
--- NOTE | 2020-02-02 07:45 | NUR ---
MEDICAL RESEARCH SCIENTIST NOTES RECEIVED REPORT FROM ADDIE RN FOR CONTINUITY OF CARE RECEIVED PATIENT AOX1-2 CONFUSE LETHARGIC , ON SIMPLE MASK @ 10LPM SPO2 OF 95% , ST 105 ON BEDSIDE MONITOR , FC DRAINING VIA GRAVITY WITH CLEAR YELLOW URINE , IV OF LAC # 20 PATENT AND INTACT WITH NS @ 70ML/HR INFUSING WELL , ALL NEEDS ATTENDED , WILL CONTINUE TO MONITOR
--- NOTE | 2020-02-02 07:49 | NUR ---
IT INTEGRATION ARCHITECT NOTES NOTIFIED HOMERO BROWN THAT PT NEEDS TO BE PLACED ON BIPAP DUE TO ABG RESULT AND PCR TEST FOR NEGATIVE IS NEGATIVE .
[2020-02-02 07:57] LABS: ABG BASE EXCESS 6.5 mmol/L; ABG PCO2 131.7 mmHg (35.0-45.0); ABG PH 7.116 (7.350-7.450); ABG PO2 77.3 mmHg (75.0-100.0); AaDO2 205.6 mmHg; COHb 2.4 % (0.5-1.5); MetHb 0.5 % (0.0-1.5); O2Hb 90.3 % (94.0-97.0); SITE, ABG Right Radial; VENT MODE, BG 12 l simple mask
[2020-02-02] MEDS: CEFEPIME 2 GM in IV D5W 100 ML IV SCH ×2 (08:07→21:00)
[2020-02-02] MEDS: PANTOPRAZOLE 40 MG VIAL IV SCH (08:09)
[2020-02-02] MEDS: ENOXAPARIN SODIUM 40 MG/0.4 ML DISP.SYRIN SQ SCH ×2 (08:09→09:00)
--- NOTE | 2020-02-02 08:14 | NUR ---
DEVELOPMENTAL WRITING INSTRUCTOR NOTES RT VALENTIN AT BEDSIDE , PLACE PT ON BIPAP 20/5 RATE 24 FIO2 60% WITH SPO2 OF 100% , PT ALERT ORIENTED X2 CONFUSED , WILL CONTINUE TO MONITOR
[2020-02-02] MEDS: IV NS 0.9% 1,000 ML IV PRN (08:42)
[2020-02-02] MEDS: VANCOMYCIN 1 GM in IV D5W 250 ML IV SCH ×2 (08:42→20:00)
--- NOTE | 2020-02-02 09:40 | NUR ---
FRONT DESK SUPERVISOR NOTES ABG RESULT RELAYED BY RT VALENTIN TO DR CESAR MD AWARE
[2020-02-02] MEDS ORDERED: ENOXAPARIN SODIUM 40 MG/0.4 ML DISP.SYRIN SQ SCH (09:59)
--- NOTE | 2020-02-02 11:12 | NUR ---
PRODUCT SUPPORT SPECIALIST NOTES LOVENOX WASTED , PT REFUSES TO TAKE LOVENOX , EXPLAINED THE BENEFITS OF IT , PT AGITATED STILL REFUSES .
[2020-02-02] MEDS ORDERED: DEXTROSE 50%-WATER 50 ML DISP.SYRIN IV PRN (12:30)
--- NOTE | 2020-02-02 13:16 | NUR ---
DRIED YEAST SUPERVISOR NOTES PT STABLE S/P US GUIDED THORACENTESIS OF THE LEFT LUNG , PT TOLERATED WELL , VS STABLE NO DISTRESS AFTER THE PROCEDURE , PUNCTURE SITE NO BLEEDING NOTED , DR ALVARADO AT BEDSIDE REMOVED 360ML OF CLEAR YELLOW FLUID , SPECIMEN LABELED AND SENT TO LAB , LOG BOOK AT LAB SIGNED , RADIOLOGY CALLED FOR CHEST XRAY
[2020-02-02] MEDS ORDERED: ALBUTEROL FS 2.5 MG/0.5 ML VIAL.NEB NEB SCH (13:30)
[2020-02-02] MEDS: ALBUTEROL FS 2.5 MG/3 ML VIAL.NEB NEB SCH ×2 (14:26→19:37)
--- NOTE | 2020-02-02 19:00 | NUR ---
Received patient on BIPAP,awake, a little lethargic but easily arousable,responds to verbal,to name call,answers incoherently.Not in any acute respiratory distress.Noted generalized edema.COmfort care done,needs attended.Maintain NPO,Aspiration Precaution observed.
--- NOTE | 2020-02-02 22:00 | NUR ---
Remains stable,tolerating BIPAP,not in any distress.
[2020-02-03] VITALS (24 sets, daily range): BP systolic 121–188; BP diastolic 66–105
--- NOTE | 2020-02-03 | NUR ---
Refused insulin ,patient adamantly refused insulin SQ ,saying loudly "No" and starts to get very upset,restless and getting agitated even trying to take off BIPAP mask.
[2020-02-03] MEDS: BLOOD SUGAR DIAGNOSTIC 1 EACH STRIP IN SCH ×5 (00:04→23:42)
[2020-02-03] MEDS: INSULIN REGULAR, HUMAN 100 UNIT/ML 3 ML VIAL SQ PRN (00:12)
[2020-02-03] MEDS: IV NS 0.9% 1,000 ML IV PRN ×2 (01:06→17:23)
[2020-02-03] MEDS: ALBUTEROL FS 2.5 MG/3 ML VIAL.NEB NEB SCH ×4 (01:17→19:46)
--- NOTE | 2020-02-03 04:00 | NUR ---
Stable,not in any distress,awake,alert but remains uncooperative and at times agitated.Tolerating BIPAP, not in any distress. Will transfer care to Meena LUCERO.
--- NOTE | 2020-02-03 04:32 | NUR ---
ICU/AVIONICS SYSTEMS TECHNICIAN RECEIVED REPORT FROM CHARLES ARGUETA, FOR CONTINUATIVE CARE. WILL CONTINUE TO MONITOR THIS PT.
[2020-02-03] MEDS: methylPREDNISolone SOD SUCC 40 MG/ML VIAL IV SCH ×3 (04:52→21:12)
[2020-02-03 04:56] LABS: BASOPHILS % (AUTO) 0.2 % (0.0-2.0); HEMATOCRIT 52 % (33-45); HEMOGLOBIN 14.5 g/dL (11.5-14.8); LYMPHOCYTES # (AUTO) 0.3 /CMM (0.8-4.8); LYMPHOCYTES % (AUTO) 2.4 % (20.0-44.0); MEAN CORPUSCULAR HGB CONC 28 g/dl (31.0-36.0); MEAN CORPUSCULAR VOLUME 69 fL (82-100); MONOCYTES # (AUTO) 0.7 /CMM (0.1-1.30); MONOCYTES % (AUTO) 6.3 % (2.0-12.0); NEUTROPHILS # (AUTO) 9.7 /CMM (1.8-8.9); NEUTROPHILS % (AUTO) 91.1 % (43.0-81.0); PLATELET COUNT (AUTO) 122 /CMM (150-450); RED BLOOD CELL COUNT(AUTO) 7.65 MIL/uL (4.0-5.2); WHITE BLOOD COUNT (AUTO) 10.6 K/uL (4.3-11.0)
[2020-02-03 04:59] LABS: ALANINE AMINOTRANSFERASE < 6 U/L (12-78); ALBUMIN 2.2 g/dL (3.4-5.0); ALKALINE PHOSPHATASE 61 U/L (46-116); ASPARTATE AMINOTRANSFERASE 16 U/L (15-37); BILIRUBIN,TOTAL 0.6 mg/dL (0.2-1.0); CARBON DIOXIDE 38 mmol/L (21-32); CHLORIDE 103 mmol/L (98-107); CREATININE 1.2 mg/dL (0.6-1.3); GLUCOSE 188 mg/dL (74-106); MAGNESIUM 2.2 mg/dL (1.8-2.4); PHOSPHORUS 3.6 mg/dL (2.5-4.9); SODIUM SERUM 140 mmol/L (136-145); TOTAL PROTEIN, SERUM 5.5 g/dL (6.4-8.2); UREA NITROGEN, BLOOD 47 mg/dL (7-18)
[2020-02-03 05:23] LABS: POTASSIUM 6.2 mmol/L (3.5-5.1)
--- NOTE | 2020-02-03 06:15 | NUR ---
ICU/JACK MACHINE OPERATOR BLOOD SUGAR IS 188, PT REFUSED COVERAGE FOR THIS. PT IS CURRENTLY NPO. WILL CONTINUE TO MONITOR THIS PT'S SUGARS ORDERED.
[2020-02-03 06:22] LABS: LYMPHOCYTES % (MANUAL) 1 % (16-48); MONOCYTES % (MANUAL) 3 % (0-11.0); NEUTROPHILS % (MANUAL) 96 (42-76)
--- NOTE | 2020-02-03 07:30 | NUR ---
RN OPENING NOTE: RECEIVED PATIENT IN BED THIS MORNING. PATIENT IS ALERT BUT UNCOOPERATIVE WITH PLAN OF CARE. SER IN THE 90S NOTED ON BEDSIDE MONITOR. NPO AT THIS TIME D/T BIPAP, SATING WELL, NO SIGNS OF ACUTE DISTRESS NOTED AT THIS TIME. MIDLINE DANIELA, #18 LAC C/D/I, FLUSHING WELL, NO SIGNS OF COMPLICATIONS NOTED. JIMENEZ DRAINING CLEAR YELLOW URINE. SAFETY MEASURES IMPLEMENTED, BED IN LOWEST POSITION, LOCKED, SIDE RAILS UP, CALL LIGHT WITHIN REACH. WILL CONTINUE TO MONITOR PATIENT FOR CHANGES.
[2020-02-03] MEDS: CEFEPIME 2 GM in IV D5W 100 ML IV SCH ×2 (08:13→21:13)
--- NOTE | 2020-02-03 08:14 | NUR ---
STILL AWAITING VANCO TROUGH RESULTS. CONTACTED LAB. RESULTS NOT AVAILABLE YET.
--- NOTE | 2020-02-03 08:21 | NUR ---
pt. is awake and follow commands placed into 2 lpm o2 flow via nasal cannula, dr. porter and RN aware on changes. Addendum: 02/03/20 at 0823 by CHANCE LACKEY RT Amended: Links added.
--- NOTE | 2020-02-03 08:38 | NUR ---
VANCO TROUGH 20, PER RX, ADMIN 0800 DOSE, NEXT DOSE WILL GET RE-ADJUSTED.
--- NOTE | 2020-02-03 08:40 | NUR ---
PLATELETS 122, PER DR GUERRERO OK TO GIVE LOVENOX
[2020-02-03] MEDS: PANTOPRAZOLE 40 MG VIAL IV SCH (08:42)
[2020-02-03] MEDS: ENOXAPARIN SODIUM 40 MG/0.4 ML DISP.SYRIN SQ SCH (08:42)
[2020-02-03] MEDS: VANCOMYCIN 1 GM in IV D5W 250 ML IV SCH (08:59)
[2020-02-03] MEDS ORDERED: SODIUM POLYSTYRENE SULFONATE 15 G/60 ML BOTTLE PO ONE (09:00)
[2020-02-03] MEDS: FUROSEMIDE 40 MG/4 ML VIAL IV SCH (09:00)
--- NOTE | 2020-02-03 09:00 | NUR ---
INFORMED RT ABOUT PATIENT'S O2 SAT DROPPING WITH NC, GOAL 88-89% VIA NC
[2020-02-03 09:26] LABS: ABG BASE EXCESS 6.4 mmol/L; ABG OXYGEN SATURATION 86.6 % (92.0-98.5); ABG PCO2 81.9 mmHg (35.0-45.0); ABG PO2 58.7 mmHg (75.0-100.0); AaDO2 44.3 mmHg; COHb 1.8 % (0.5-1.5); MetHb 0.4 % (0.0-1.5); O2Hb 84.7 % (94.0-97.0); SITE, ABG Right Radial; VENT MODE, BG nasal cannula
--- NOTE | 2020-02-03 09:32 | NUR ---
placed back into bipap due to increased work of breathing.rn notified on changes. Addendum: 02/03/20 at 0933 by CHANCE LACKEY RT Amended: Links added.
--- NOTE | 2020-02-03 10:15 | NUR ---
PATIENT WAS PUT BACK ON BIPAP D/T USE OF ACCESSORY MUSCLES
--- NOTE | 2020-02-03 10:51 | NUR ---
KAYLI ALLEN AWARE OF PATIENT'S BRADYCARDIA Addendum: 02/03/20 at 1233 by ABHIJIT PELAYO RN AWARE OF PATIENT'S INCREASED BP. AWAITING NEW ORDERS Addendum: 02/03/20 at 1550 by ABHIJIT PELAYO RN INFORMED AGAIN THAT PATIENT'S BP IS STILL HIGH Addendum: 02/03/20 at 1659 by ABHIJIT PELAYO RN KAYLI ALLEN AWARE OF PATIENT'S BP 182/84
[2020-02-03 13:07] LABS: CALCIUM, SERUM 8.6 mg/dL (8.5-10.1)
[2020-02-03] MEDS: LISINOPRIL (5MG) 5 MG TABLET PO SCH (14:24)
--- NOTE | 2020-02-03 15:41 | NUR ---
INFORMED DR MULLEN ABOUT PATIENT'S RESPIRATORY STATUS WITH ORDERS TO PUT PATIENT BACK TO NPO STATUS EXCEPT MEDS
[2020-02-03] MEDS: AMLODIPINE BESYLATE 5 MG TABLET PO SCH (17:02)
--- NOTE | 2020-02-03 18:48 | NUR ---
RN CLOSING NOTE: PATIENT REMAINS IN ROOM. NO SIGNS OF ACUTE DISTRESS NOTED AT THIS TIME. SB IN THE 50S NOTED ON THE BEDSIDE MONITOR. SAFETY MEASURES IMPLEMENTED, BED IN LOWEST POSITION, LOCKED, SIDE RAILS UP, CALL LIGHT WITHIN REACH. WILL ENDORSE TO ONCOMING SHIFT RN FOR CONTINUITY OF CARE.
--- NOTE | 2020-02-03 20:10 | NUR ---
ICU/AUTO EMISSIONS TECHNICIAN UPON DOING ASSESSMENT, FOR THAT PT HAD CELLULITIS TO THE LEFT ABDOMEN AND LEFT LOWER BREAST AREA. WILL CONTINUE TO MONITOR THIS PT. THIS WAS NOTED ON THE FLOWSHEET.
[2020-02-03] MEDS: VANCOMYCIN HCL 0.75 GM in IV D5W 250 ML IV SCH (20:35)
--- NOTE | 2020-02-03 21:20 | NUR ---
ICU/PET TRAINING INSTRUCTOR PT'S BLOOD PRESSURE HAS BEEN ELEVATED FOR THE DAY SHIFT. PT WAS GIVEN 2X BP MEDICATION. BP REMAINS HIGH. CALLED THE ON-CALL PASCUL DNP WHO THEN GAVE AN ORDER FOR HYDRALAZINE Q 6 HRS SCHEDULED. ORDER WAS PUT IN COMPUTER, WILL CARRY OUT WHEN IS AVAILABLE.
[2020-02-03] MEDS: hydrALAZINE HCL 10 MG TABLET PO SCH ×2 (21:56→23:42)
--- NOTE | 2020-02-03 22:40 | NUR ---
ICU/HOISTING PILE DRIVING ENGINEER PT WAS GIVEN LASIX BY DAY SHIFT. PT HAS HAD GOOD OUTPUT SINCE THEN. WILL CONTINUE TO MONITOR THIS PT.
[2020-02-04] VITALS (24 sets, daily range): BP systolic 95–178; BP diastolic 43–97
--- NOTE | 2020-02-04 00:10 | NUR ---
ICU/SOIL SAMPLER HYDRALAZINE NOT GIVEN AT 2400 BECAUSE THIS WAS GIVEN AT 2200. THIS IS EVERY 6 HOURS. WILL GIVE WHEN THIS IS SCHEDUALED NEXT WHICH IS 0600
[2020-02-04] MEDS: ALBUTEROL FS 2.5 MG/3 ML VIAL.NEB NEB SCH ×4 (00:37→20:19)
[2020-02-04] MEDS: INSULIN REGULAR, HUMAN 100 UNIT/ML 3 ML VIAL SQ PRN ×4 (00:51→17:33)
[2020-02-04 04:09] LABS: HEMATOCRIT 52 % (33-45); HEMOGLOBIN 14.5 g/dL (11.5-14.8); LYMPHOCYTES # (AUTO) 0.2 /CMM (0.8-4.8); MEAN CORPUSCULAR HGB CONC 28 g/dl (31.0-36.0); MEAN CORPUSCULAR VOLUME 67 fL (82-100); MONOCYTES # (AUTO) 0.6 /CMM (0.1-1.30); MONOCYTES % (AUTO) 5.7 % (2.0-12.0); NEUTROPHILS # (AUTO) 10.3 /CMM (1.8-8.9); NEUTROPHILS % (AUTO) 92.3 % (43.0-81.0); PLATELET COUNT (AUTO) 102 /CMM (150-450); RED BLOOD CELL COUNT(AUTO) 7.72 MIL/uL (4.0-5.2); WHITE BLOOD COUNT (AUTO) 11.2 K/uL (4.3-11.0)
[2020-02-04] MEDS: methylPREDNISolone SOD SUCC 40 MG/ML VIAL IV SCH ×3 (04:53→21:00)
[2020-02-04 05:08] LABS: CALCIUM, SERUM 8.6 mg/dL (8.5-10.1); MAGNESIUM 1.9 mg/dL (1.8-2.4); PHOSPHORUS 2.3 mg/dL (2.5-4.9); POTASSIUM 4.1 mmol/L (3.5-5.1)
[2020-02-04] MEDS: hydrALAZINE HCL 10 MG TABLET PO SCH ×4 (05:11→23:34)
[2020-02-04] MEDS: BLOOD SUGAR DIAGNOSTIC 1 EACH STRIP IN SCH ×4 (05:40→23:33)
[2020-02-04 07:00] LABS: LYMPHOCYTES % (MANUAL) 2 % (16-48); MONOCYTES % (MANUAL) 5 % (0-11.0); NEUTROPHILS % (MANUAL) 93 (42-76)
--- NOTE | 2020-02-04 07:15 | NUR ---
MRB ENGINEER NOTES RECEIVED PATIENT AOX2 CONFUSE ON BIPAP SETTINGS ORDERED WITH SPO2 OF 95%NO DISTRESS NOTED , SR 62 ON BEDSIDE MONITOR , FC DRAINING VIA GRAVITY WITH CLEAR YELLOW URINE , DANIELA MIDLINE WITH NS @ 70ML/HR INFUSING WELL , L AC # 20 PATENT AND INTACT SL ALL NEEDS ATTENDED , WILL CONTINUE TO MONITOR
--- NOTE | 2020-02-04 08:05 | NUR ---
pt. is awake and follow commands placed into 2 lpm o2 flow via nasal cannula. bipap on stand by @ bedside. RN aware on changes. Addendum: 02/04/20 at 0807 by CHANCE LACKEY RT Amended: Links added.
--- NOTE | 2020-02-04 08:10 | NUR ---
HEALTH INFORMATION TECHNICIAN NOTES RT CHANCE PLACED PT ON 2LPM NC , SPO2 OF 80-85% WITH NO SIGNS OF DISTRESS , PER DR GUERRERO ORDER ABG AFTER 1 HOUR , RESTRAINTS RELEASED PT IS MORE AWAKE AND COOPERATIVE , WILL CONTINUE TO MONITOR
[2020-02-04] MEDS: FUROSEMIDE 40 MG/4 ML VIAL IV SCH (08:27)
[2020-02-04] MEDS: PANTOPRAZOLE 40 MG VIAL IV SCH (08:27)
[2020-02-04] MEDS: VANCOMYCIN HCL 0.75 GM in IV D5W 250 ML IV SCH ×2 (08:27→20:10)
[2020-02-04] MEDS: AMLODIPINE BESYLATE 5 MG TABLET PO SCH (08:28)
[2020-02-04] MEDS: LISINOPRIL (5MG) 5 MG TABLET PO SCH (08:28)
[2020-02-04] MEDS: ENOXAPARIN SODIUM 40 MG/0.4 ML DISP.SYRIN SQ SCH (08:47)
--- NOTE | 2020-02-04 09:00 | NUR ---
TERRA COTTA MASON NOTES SEEN AND EVALUATED BY DR GUERRERO ,DISCUSSED ABG RESULTS , LABS AND CHEST XRAY , AWARE , NO NEW ORDERS RECEIVED
[2020-02-04 09:08] LABS: ABG BASE EXCESS 15.1 mmol/L; ABG OXYGEN SATURATION 67.2 % (92.0-98.5); ABG PCO2 76.7 mmHg (35.0-45.0); ABG PH 7.381 (7.350-7.450); ABG PO2 37.1 mmHg (75.0-100.0); COHb 1.3 % (0.5-1.5); MetHb 0.4 % (0.0-1.5); O2Hb 66.1 % (94.0-97.0); SITE, ABG Right Radial; VENT MODE, BG nasal cannula
--- NOTE | 2020-02-04 09:14 | NUR ---
ENRICHMENT ASSISTANT NOTES ABG RELAYED TO DR GUERRERO BY CHANCE BROWN , PER PLACE PT ON VENTI MASK , CHANCE BROWN PLACED PT ON VENTI MASK@ 6LPM @ 28 % FIO2 , WILL CONTINUE TO MONITOR
[2020-02-04] MEDS: CEFEPIME 2 GM in IV D5W 100 ML IV SCH ×2 (09:17→21:00)
--- NOTE | 2020-02-04 09:17 | NUR ---
pt. is awake and follow commands placed into venti-mask @ 28% fio2 from nasal cannula per dr. porter. Addendum: 02/04/20 at 0918 by CHANCE LACKEY RT Amended: Links added.
[2020-02-04] MEDS: IV NS 0.9% 1,000 ML IV PRN (09:22)
--- NOTE | 2020-02-04 09:56 | NUR ---
RETAIL BUSINESS DEVELOPMENT MANAGER NOTES VENTI MASK TITRATED TO 35% FIO2 , SPO2 OF 87-88% AT THIS TIME , WILL CONTINUE TO MONITOR , DR GUERRERO AWARE
--- NOTE | 2020-02-04 09:59 | NUR ---
increased fio2 to 35% due to 81 - 83% spo2 on 28% fio2 per dr. peleg. florez notified on changes. Addendum: 02/04/20 at 1000 by CHANCE LACKEY RT Amended: Links added.
[2020-02-04] MEDS: GUAIFENESIN/D-METHORPHAN HB 5 ML UDC PO PRN ×2 (10:51→18:12)
[2020-02-04] MEDS ORDERED: K PHOS NEUTRAL 250 MG TABLET PO ONE (13:00)
--- NOTE | 2020-02-04 13:51 | NUR ---
REGISTERED PUBLIC SURVEYOR NOTES NOTIFIED CHRISTINA ALLEN DIRECTOR [employer] THAT PT NOTED TO HAVE REDNESS AT BILATERAL LOWER EXTREMITY , WARM TO TOUCH AND PT COMPLAINING OF PAIN WHEN TOUCHED , NOTED ALSO WITH MILD PITTING EDEMA , DIRECTOR [employer]ES AWARE , AWAITING FOR ORDERS
[2020-02-04 14:13] LABS: ABG BASE EXCESS 14.9 mmol/L; ABG OXYGEN SATURATION 87.8 % (92.0-98.5); ABG PCO2 77.3 mmHg (35.0-45.0); ABG PH 7.376 (7.350-7.450); ABG PO2 56.3 mmHg (75.0-100.0); AaDO2 103.4 mmHg; COHb 1.8 % (0.5-1.5); MetHb 0.4 % (0.0-1.5); O2Hb 85.9 % (94.0-97.0); SITE, ABG Right Radial; VENT MODE, BG 35% venti-mask
--- NOTE | 2020-02-04 14:30 | NUR ---
ADMINISTRATIVE SUPPORT TECHNICIAN NOTES ABG RELAYED BY RT FLETCHER TO DR GUERRERO VIA VENTURI MASK @ 35% , NO ORDERS RECEIVED
--- NOTE | 2020-02-04 17:26 | NUR ---
pt is tolerating well on venti-mask @ 35% fio2. bipap on stand by @ bedside. Addendum: 02/04/20 at 1726 by CHANCE LACKEY RT Amended: Links added.
--- NOTE | 2020-02-04 19:00 | NUR ---
RECEIVED PATIENT AWAKE,ALERT,CONVERSES,COHERENT AND APPROPRIATE,COOPERATIVE AND CALM.WITH O2 VIA VM ,NOT IN ANY DISTRESS,BREATHING REGULAR AND NON LABORED.NEEDS ATTENDED,BIPAP @ HS.STILL NPO EXCEPT MEDS
--- NOTE | 2020-02-04 19:01 | NUR ---
AGRICULTURAL RESEARCH TECHNOLOGIST NOTES PATIENT STABLE AT [facility] AOX2-3 WITH EPISODES OF CONFUSION NO DISTRESS NOTED ON VENTURI MASK @ 35% FIO2 TO KEEP SPO2 88-90% , SR 85 ON BEDSIDE MONITOR , FC DRAINING VIA GRAVITY WITH CLEAR YELLOW URINE , DANIELA MIDLINE WITH NS @ 70ML/HR INFUSING WELL , ALL NEEDS ATTENDED , REPORT GIVEN TO ELLIE FOR CONTINUITY OF CARE
--- NOTE | 2020-02-04 21:00 | NUR ---
NPO EXCEPT MEDS ,BUT ABLE TO TOLERATE WATER.WITH PERIODS OF MILD SOB ON EXERTION AND OCCASIONAL DESATURATE TO 87-88 %.ENCOURAGED DEEP BREATHING AND COUGHING.
[2020-02-05] VITALS (24 sets, daily range): BP systolic 94–180; BP diastolic 44–88
--- NOTE | 2020-02-05 | NUR ---
AM BATH DONE,+ SOB ON EXERTION AND EASILY DESATURATE IN THE LOW 80'S,PLACED ON BIPAP POST AM BATH.TOLERATING BIPAP,SATURATING 97% (bipap @)/5,R=25,fiO2 60 %)
[2020-02-05] MEDS: INSULIN REGULAR, HUMAN 100 UNIT/ML 3 ML VIAL SQ PRN ×5 (00:02→21:21)
[2020-02-05] MEDS: ALBUTEROL FS 2.5 MG/3 ML VIAL.NEB NEB SCH ×4 (01:43→19:49)
[2020-02-05] MEDS: IV NS 0.9% 1,000 ML IV PRN (02:37)
--- NOTE | 2020-02-05 04:00 | NUR ---
TOLERATING BIPAP,NOT IN ANY DISTRESS.NEEDS ATTENDED.
[2020-02-05 04:23] LABS: BASOPHILS # (AUTO) 0.1 /CMM (0.0-0.2); BASOPHILS % (AUTO) 1.7 % (0.0-2.0); EOSINOPHILS % (AUTO) 0.1 % (0.0-6.0); HEMATOCRIT 50 % (33-45); HEMOGLOBIN 14.1 g/dL (11.5-14.8); LYMPHOCYTES # (AUTO) 0.2 /CMM (0.8-4.8); LYMPHOCYTES % (AUTO) 2.7 % (20.0-44.0); MEAN CORPUSCULAR HGB CONC 28 g/dl (31.0-36.0); MEAN CORPUSCULAR VOLUME 67 fL (82-100); MONOCYTES # (AUTO) 0.6 /CMM (0.1-1.30); MONOCYTES % (AUTO) 7.9 % (2.0-12.0); NEUTROPHILS # (AUTO) 7.1 /CMM (1.8-8.9); NEUTROPHILS % (AUTO) 87.6 % (43.0-81.0); PLATELET COUNT (AUTO) 69 /CMM (150-450); RED BLOOD CELL COUNT(AUTO) 7.47 MIL/uL (4.0-5.2); WHITE BLOOD COUNT (AUTO) 8.1 K/uL (4.3-11.0)
[2020-02-05 04:31] LABS: CALCIUM, SERUM 8.3 mg/dL (8.5-10.1); CREATININE 0.7 mg/dL (0.6-1.3); MAGNESIUM 1.8 mg/dL (1.8-2.4); PHOSPHORUS 2.8 mg/dL (2.5-4.9); POTASSIUM 3.6 mmol/L (3.5-5.1)
[2020-02-05] MEDS: methylPREDNISolone SOD SUCC 40 MG/ML VIAL IV SCH ×3 (05:06→20:37)
[2020-02-05] MEDS: hydrALAZINE HCL 10 MG TABLET PO SCH (05:07)
[2020-02-05 05:39] LABS: BAND % (MANUAL) 2 % (0.0-5.0); LYMPHOCYTES % (MANUAL) 3 % (16-48); MONOCYTES % (MANUAL) 5 % (0-11.0); NEUTROPHILS % (MANUAL) 90 (42-76)
[2020-02-05] MEDS: BLOOD SUGAR DIAGNOSTIC 1 EACH STRIP IN SCH ×5 (06:25→21:18)
--- NOTE | 2020-02-05 07:00 | NUR ---
STABLE,TOLERATED BIPAP ALL NIGHT ,AWAKE,ALERT.REPORT GIVEN TO LAVONNE LUCERO
--- NOTE | 2020-02-05 07:27 | NUR ---
WOUND CARE CONSULT: PT SEEN FOR LEFT ABDOMINAL REDNESS WHICH IS VERY SLIGHT. RN TO DISCUSS WITH MD. PT ABLE TO ASSIST WITH TURNING AND REPOSITIONING IN BED. PT IS CONTINENT WITH TONY AT THIS TIME. WILL SEE PRN. VOSS IN AGREEMENT WITH PLAN OF CARE. Addendum: 02/05/20 at 0764 by MICHAEL MARIANO WNDNU Amended: Links added.
[2020-02-05] MEDS: VANCOMYCIN HCL 0.75 GM in IV D5W 250 ML IV SCH (08:00)
[2020-02-05] MEDS: LISINOPRIL (5MG) 5 MG TABLET PO SCH (08:07)
[2020-02-05] MEDS: FUROSEMIDE 40 MG/4 ML VIAL IV SCH (08:07)
[2020-02-05] MEDS: ENOXAPARIN SODIUM 40 MG/0.4 ML DISP.SYRIN SQ SCH (08:08)
[2020-02-05] MEDS: AMLODIPINE BESYLATE 5 MG TABLET PO SCH (08:08)
[2020-02-05] MEDS: CEFEPIME 2 GM in IV D5W 100 ML IV SCH (08:09)
[2020-02-05] MEDS: PANTOPRAZOLE 40 MG VIAL IV SCH (08:09)
--- NOTE | 2020-02-05 08:29 | NUR ---
RN NOTE HOLDING VANCOMYCIN PER LEVEL ORDER. VANCO THROUGH IS 23. CONFIRMED WITH DENIA FROM PHARMACY, OK TO HOLD.
[2020-02-05] MEDS: hydrALAZINE HCL 50 MG TABLET PO SCH ×3 (08:44→16:55)
[2020-02-05 08:48] LABS: ABG BASE EXCESS 14.4 mmol/L; ABG OXYGEN SATURATION 89.6 % (92.0-98.5); ABG PCO2 65.5 mmHg (35.0-45.0); ABG PH 7.428 (7.350-7.450); AaDO2 115.4 mmHg; COHb 1.9 % (0.5-1.5); MetHb 0.4 % (0.0-1.5); O2Hb 87.5 % (94.0-97.0); SITE, ABG Right Radial
--- NOTE | 2020-02-05 11:20 | NUR ---
RN NOTE PATIENT IS AGITATED OFF BIPAP, TACHYCARDIC WITH HR AT 130, PLACED BACK ON BIPAP WITH PREVIOUS SETTINGS, DR GUERRERO AND ALEJANDRO AWARE, OK TO KEEP HER ON BIPAP FOR NOW. SAFETY MAINTAINED, CALL LIGHT WITHIN REACH, WILL CONTINUE TO MONITOR CLOSELY.
[2020-02-05] MEDS ORDERED: DEXTROSE 50%-WATER 50 ML DISP.SYRIN IV PRN (12:30)
[2020-02-05] MEDS ORDERED: CLINDAMYCIN IV RTU IN D5W 900 MG/50 ML PIGGYBACK IV SCH (18:00)
--- NOTE | 2020-02-05 19:25 | NUR ---
RN NOTE NO ACUTE CHANGES TO PATIENT CONDITION DURING MY SHIFT. CURRENTLY ON VENTURI MASK AT 35%, TOLERATING WELL, NO SIGNS OF SOB OR AGITATION NOTED. BREATHING IS EVEN AND UNLABORED. ALL PATIENT NEEDS WERE MET, KEPT CLEAN AND DRY, ENDORSED TO PM NURSE REGARDING THE NOCTURNAL BIPAP, AND OK TO PUT PATIENT ON BIPAP IF NOT DOING WELL ON VENTURI MASK. PATIENT KEPT CLEAN AND DRY, ALL PATIENT NEEDS MET, CALL LIGHT WITHIN REACH, ENDORSED TO PM NURSE FOR ANGEL.
[2020-02-05] MEDS: GENTAMICIN 80 MG in IV D5W 50 ML IV SCH (19:50)
[2020-02-05] MEDS: CLINDAMYCIN 900 MG in IV D5W 50 ML IV SCH (20:37)
[2020-02-05] MEDS ORDERED: VANCOMYCIN 1 GM in IV D5W 250 ML IV SCH (21:00)
[2020-02-06] VITALS (18 sets, daily range): BP systolic 114–171; BP diastolic 52–83
--- NOTE | 2020-02-06 | NUR ---
RN NOTE PT O2 SATURATION 90% WHILE ON VENTURI MASK, RESPIRATIONS EVEN AND UNLABORED, RT AMBROSE AT BEDSIDE OFFERING TO PUT PT ON NOCTURNAL BI PAP BUT PT REFUSED AT THIS TIME STATING THAT SHE WILL HAVE IT ON AT A LATER TIME. EDUCATION GIVEN ON BENEFITS VS RISKS, WILL MONITOR
[2020-02-06] MEDS: ALBUTEROL FS 2.5 MG/3 ML VIAL.NEB NEB SCH ×4 (01:00→19:25)
--- NOTE | 2020-02-06 01:00 | NUR ---
RN NOTE RT AMBROSE AT BEDSIDE OFFERING TO PUT PT ON BI PAP BUT PT CONTINUES TO REFUSE DESPITE EXPLANATION OF RISKS AND BENEFITS. O2 SATURATION 92%, RESPIRATIONS EVEN AND UNLABORED, RT ADMINISTERING BREATHING TREATMENT, WILL MONITOR PATIENT.
--- NOTE | 2020-02-06 04:00 | NUR ---
RN NOTE PT CURRENTLY ON VENTURI MASK AND WITH O2 SATURATION 91%. RESPIRATIONS EVEN AND UNLABORED, OFFERED TO PLACE PT ON BI PAP AND EXPLAINED PLAN OF CARE, PT BECAME AGITATED AND STRONGLY REFUSED TO BE PLACED ON BIPAP DESPITE EXPLANATION OF RISKS AND ADVANTAGES, RT AND POLISHING MACHINE OPERATOR AWARE. WILL CONTINUE TO MONITOR, ALL OTHER NEEDS MET AND ATTENDED TO.
[2020-02-06] MEDS: methylPREDNISolone SOD SUCC 40 MG/ML VIAL IV SCH ×3 (04:21→20:50)
[2020-02-06] MEDS: CLINDAMYCIN 900 MG in IV D5W 50 ML IV SCH ×3 (04:21→20:50)
[2020-02-06 04:47] LABS: CALCIUM, SERUM 7.9 mg/dL (8.5-10.1); CREATININE 0.8 mg/dL (0.6-1.3); POTASSIUM 2.9 mmol/L (3.5-5.1)
--- NOTE | 2020-02-06 05:18 | NUR ---
RN NOTE RECEIVED ALERT FOR CRITICAL LAB VALUE CO2 45 NOTED OT BE INCREASING. NOTIFIED ABOUT PT'S REFUSAL TO BE PUT ON NOCTURNAL BIPAP. WITH ORDER TO CONTINUE TO ENCOURAGE BIPAP. WILL CONTINUE TO MONITOR. Addendum: 02/06/20 at 0604 by FRANCK PAZ RN LAZARUS RUBIN DNP NOTIFIED.
--- NOTE | 2020-02-06 07:12 | NUR ---
RN CLOSING NOTE PT CONTINUES TO REFUSE BI PAP. ALL OTHER NEEDS MET AND ATTENDED TO, VITAL SIGNS STABLE, SAFETY MEASURES IN PLACE, ENDORSED TO MORNING RN FOR CONTINUATION OF CARE.
[2020-02-06] MEDS: BLOOD SUGAR DIAGNOSTIC 1 EACH STRIP IN SCH ×4 (07:38→22:53)
[2020-02-06] MEDS: INSULIN REGULAR, HUMAN 100 UNIT/ML 3 ML VIAL SQ PRN ×4 (07:38→21:47)
[2020-02-06] MEDS: LISINOPRIL (5MG) 5 MG TABLET PO SCH (08:07)
[2020-02-06] MEDS: AMLODIPINE BESYLATE 5 MG TABLET PO SCH (08:07)
[2020-02-06] MEDS: hydrALAZINE HCL 50 MG TABLET PO SCH ×3 (08:08→16:34)
[2020-02-06] MEDS: GENTAMICIN 80 MG in IV D5W 50 ML IV SCH ×2 (08:51→21:50)
[2020-02-06] MEDS ORDERED: POTASSIUM CHLORIDE 20 MEQ TAB.PRT.SR PO ONE ×2 (09:00→13:00)
[2020-02-06 10:28] LABS: THYROID STIMULATING HORMONE 0.575 uIU/mL (0.358-3.74)
[2020-02-06 11:17] LABS: MAGNESIUM 1.6 mg/dL (1.8-2.4); PHOSPHORUS 2.9 mg/dL (2.5-4.9)
--- NOTE | 2020-02-06 16:45 | NUR ---
RN NOTE PATIENT REMAINED IN STABLE CONDITION DURING MY SHIFT. RECEIVED ORDERS TO TRANSFER PATIENT TO [facility]. REPORT GIVEN TO GARRET LUCERO FOR CONTINUATION OF CARE. ALL SCHEDULED MEDICATIONS GIVEN ON TIME. PATIENT SATURATING WELL ON 6L VIA NC, O2 SATURATION AT 92%, NO SIGNS OF RESPIRATORY DISTRESS NOTED. VITAL SIGNS ARE STABLE. WILL TRANSFER PATIENT USING ACLS PROTOCOL. SAFETY MAINTAINED, ENDORSED TO GARRET LUCERO FOR ANGEL.
--- NOTE | 2020-02-06 17:29 | NUR ---
PARK NATURALIST NOTE RECITED PATIENT FROM ICU ALERT BUT SOME CONFUSION , ON TELE MONITOR SR WITH JIMENEZ CATH TO GRAVITY WITH YELLOW COLOR URINE, RT UPPER ARM INTACT AND FLUSHED WELL, BED IN LOWEST AND LOCKED POSITION , CALL LIGHT WITHIN REACH, NO SOB NOTED, ON 6L NAC AT THIS TIME , WILL CONT TO MONITOR
--- NOTE | 2020-02-06 18:43 | NUR ---
PAI GOW DEALER NOTE ALL NEEDS ATTENDED ,ABLE TO EAT DINNER SELF, NO SOB NOTED ,NOT IN DISTRESS, BED IN LOWEST AND LOCKED POSITION , CALL LIGHT WITHIN REACH
--- NOTE | 2020-02-06 19:05 | NUR ---
SEPTIC TANK SETTER OPENING NOTES: RECEIVED PATIENT IN BED, AWAKE, A/O X2, WITH PERIODS OF CONFUSION. NO SOB NOTED. NO COMPLAIN OF PAIN. HOB ELEVATED. BED ALARM ON. BED IN LOWEST AND LOCKED POSITION. CALL LIGHT WITHIN REACH. WITH JIMENEZ CATHETER INTACT WITH CLEAR YELLOW URINE OUTPUT. PATIENT HAS BEEN REFUSING THE BI-PAP MACHINE, AT THE BEDSIDE. WITH O2 AT 6L/MIN NASAL CANNULA.
--- NOTE | 2020-02-06 20:00 | NUR ---
RT NOTE PT RECEIVED ON 5LPM NASAL CANNULA. PT AWAKE/ALERT. HHN TX GIVEN VIA AEROSOL MASK, NO ADVERSE REACTIONS NOTED. PT REFUSED BIPAP AT THIS TIME. NO DISTRESS NOTED.
--- NOTE | 2020-02-06 21:55 | NUR ---
RT CAME AND PUT THE BI-PAP MACHINE, PATIENT NOW AGREED.
--- NOTE | 2020-02-06 22:16 | NUR ---
CALLED RT RAY AND INFORMED HIM OF PATIENT'S O2 SAT IS 87% ON BI-PAP.
--- NOTE | 2020-02-06 22:30 | NUR ---
RT CAME AND FIXED THE BI-PAP.
--- NOTE | 2020-02-06 23:50 | NUR ---
RT NOTE PT CURRENTLY ON 60% FIO2 DUE TO LOW SATURATION. SPO2 @ 90% HR 74. RN FLORINA AWARE. WILL CONTINUE TO MONITOR CLOSELY.
[2020-02-07] VITALS: BP 115/59
[2020-02-07] MEDS: ALBUTEROL FS 2.5 MG/3 ML VIAL.NEB NEB SCH ×4 (01:28→19:24)
[2020-02-07 04:00] VITALS: BP 154/79
[2020-02-07] MEDS: CLINDAMYCIN 900 MG in IV D5W 50 ML IV SCH ×2 (04:29→13:59)
[2020-02-07] MEDS: methylPREDNISolone SOD SUCC 40 MG/ML VIAL IV SCH ×3 (04:31→21:27)
--- NOTE | 2020-02-07 05:13 | NUR ---
MACHINE TRIMMER CLOSING NOTES: PATIENT IN BED,AWAKE, A/O X2. NO SOB NOTED. NO COMPLAIN OF PAIN. HOB ELEVATED AT ALL TIMES. CALL LIGHT WITHIN REACH. BED ALARM ON. WITH O2 AT 6L/MIN. ON PULSE OXIMETER MONITORING. SCD'S PLACED ON BOTH LEGS. RESTED THROUGHOUT THE NIGHT. NEEDS ATTENDED. WITH JIMENEZ CATHETER INTACT, WITH CLEAR YELLOW URINE.
[2020-02-07] MEDS: INSULIN REGULAR, HUMAN 100 UNIT/ML 3 ML VIAL SQ PRN ×4 (06:49→21:42)
[2020-02-07 06:53] LABS: BASOPHILS % (AUTO) 0.1 % (0.0-2.0); HEMATOCRIT 43 % (33-45); HEMOGLOBIN 12.1 g/dL (11.5-14.8); LYMPHOCYTES # (AUTO) 0.3 /CMM (0.8-4.8); LYMPHOCYTES % (AUTO) 2.4 % (20.0-44.0); MEAN CORPUSCULAR HGB CONC 28 g/dl (31.0-36.0); MEAN CORPUSCULAR VOLUME 67 fL (82-100); MONOCYTES # (AUTO) 1.2 /CMM (0.1-1.30); MONOCYTES % (AUTO) 11.3 % (2.0-12.0); NEUTROPHILS # (AUTO) 9.2 /CMM (1.8-8.9); NEUTROPHILS % (AUTO) 86.2 % (43.0-81.0); PLATELET COUNT (AUTO) 73 /CMM (150-450); RED BLOOD CELL COUNT(AUTO) 6.42 MIL/uL (4.0-5.2); WHITE BLOOD COUNT (AUTO) 10.7 K/uL (4.3-11.0)
[2020-02-07 07:16] LABS: ALANINE AMINOTRANSFERASE < 6 U/L (12-78); ALBUMIN 2.1 g/dL (3.4-5.0); ALKALINE PHOSPHATASE 50 U/L (46-116); ASPARTATE AMINOTRANSFERASE 20 U/L (15-37); CALCIUM, SERUM 7.8 mg/dL (8.5-10.1); CHLORIDE 94 mmol/L (98-107); CREATININE 0.7 mg/dL (0.6-1.3); GLUCOSE 169 mg/dL (74-106); MAGNESIUM 1.6 mg/dL (1.8-2.4); PHOSPHORUS 2.3 mg/dL (2.5-4.9); POTASSIUM 3.8 mmol/L (3.5-5.1); SODIUM SERUM 136 mmol/L (136-145); UREA NITROGEN, BLOOD 23 mg/dL (7-18)
[2020-02-07] MEDS: BLOOD SUGAR DIAGNOSTIC 1 EACH STRIP IN SCH ×4 (07:30→22:00)
--- NOTE | 2020-02-07 07:35 | NUR ---
TELE/RN NOTE THE PATIENT IS RECEIVED IN BED. THE PATIENT IS ALERT AND ORIENTED X2. DENIES PAIN. RECEIVING OXYGEN AT 5L/MIN VIA NASAL CANNULA AND DENIES SOB. RESPIRATION REGULAR AND UNLABORED. TELE BOX READING IS SR 97. THE PATIENT IS IN NO APPARENT DISTRESS. JIMENEZ CATH PRESENT AN DRAINING CLEAR, YELLOW COLOR URINE. NO BLADDER DISTENSION NOTED. DANIELA MIDLINE G 18 PATENT AND SALINE LOCKED. BED LOW AND LOCKED. SIDE RAILS UP X3. CALL LIGHT WITHIN REACH. WILL CONTINUE TO MONITOR.
[2020-02-07 07:45] LABS: CARBON DIOXIDE 41 mmol/L (21-32)
--- NOTE | 2020-02-07 07:52 | NUR ---
TELE/RN NOTE BLOOD SUGAR CHECK DUE AT 0730 IS NOT DONE BECAUSE THE PM SHIFT ALREADY CHECKED THE PATIENT`S BLOOD SUGAR ( 180) AND GAVE 3 UNITS OF INSULIN COVERAGE AT 0649.
[2020-02-07 08:00] VITALS: BP 145/78
[2020-02-07] MEDS: LISINOPRIL (5MG) 5 MG TABLET PO SCH (08:33)
[2020-02-07] MEDS: hydrALAZINE HCL 50 MG TABLET PO SCH ×3 (08:33→17:01)
[2020-02-07] MEDS: AMLODIPINE BESYLATE 5 MG TABLET PO SCH (08:33)
[2020-02-07 08:56] LABS: LYMPHOCYTES % (MANUAL) 4 % (16-48); MONOCYTES % (MANUAL) 13 % (0-11.0); NEUTROPHILS % (MANUAL) 83 (42-76)
--- NOTE | 2020-02-07 09:48 | NUR ---
RN NOTE STILL WAITING FOR THE PHARMACY TO DELIVER GENTAMICIN DUE AT 0900. FOLLOW UP CALL IS MADE. WILL CONTINUE TO FOLLOW UP UNTIL IT IS DELIVERED.
[2020-02-07] MEDS: GENTAMICIN 80 MG in IV D5W 50 ML IV SCH ×2 (10:48→21:27)
--- NOTE | 2020-02-07 10:48 | NUR ---
RN NOTE GENTAMICIN IS ADMINISTERED AT THIS TIME INSTEAD OF 0900 DUE TO PHARMACY LATE DELIVERY. KISHAN ALLEN IS AWARE.
[2020-02-07] MEDS ORDERED: K PHOS NEUTRAL 250 MG TABLET PO ONE (11:00)
[2020-02-07] MEDS: Magnesium 1GM/D5W 100ML PREMIX 100 ML IV SCH ×2 (11:56→15:54)
[2020-02-07 16:00] VITALS: BP 133/65
--- NOTE | 2020-02-07 18:44 | NUR ---
MS/RN NOTE THE PATIENT IS ALERT AND ORIENTED X3 WITH EPISODES OF FORGETFULNESS. DENIES SOB. RECEIVING OXYGEN AT 5L/MIN VIA NASAL CANNULA AND SATURATION IS AT 93%. RESPIRATION REGULAR. DENIES PAIN. THE PATIENT IS IN NO APPARENT DISTRESS. DANIELA MIDLINE G 18 PATENT AND SALINE LOCKED. BED LOW AND LOCKED. SIDE RAILS UP X3. CALL LIGHT WITHIN REACH. WILL ENDORSE TO BRANCH SALES AND SERVICE REPRESENTATIVE.
--- NOTE | 2020-02-07 19:03 | NUR ---
MS RN OPENING NOTES: RECEIVED PATIENT IN BED, AWAKE, ANGRY, TONE VOICE IS HIGH, PATIENT STATES THAT SHE IS VERY UPSET BECAUSE SHE SAID THAT THEY FORGOT TO GIVE HER SODA. EXPLAINED TO THE PATIENT THAT SHE CANNOT HAVE ANY SODA SINCE SHE IS DIABETIC. BUT NOTICED THAT THE PATIENT IS HOLDING A CAN OF SODA NOT SUGAR-FREE SODA SHE'S BEEN DRINKING IT ALREADY AND PATIENT SAID THAT HER ROOMMATE GAVE IT TO HER. ROOMMATE CONFIRMED IT, ADVISED THE ROOMMATE PATIENT NOT TO DO IT AGAIN, VERBALIZED UNDERSTANDING.
--- NOTE | 2020-02-07 19:03 | NUR ---
PATIENT IS IN BED, AWAKE, A/O X2. NO SOB NOTED. NO COMPLAIN OF PAIN. HOB ELEVATED. WITH O2 AT 6L/MIN NASAL CANNULA. WITH JIMENEZ CATHETER INTACT, WITH YELLOW URINE OUTPUT. PER REPORT PATIENT WALKED WITH PT TODAY.CALL LIGHT WITHIN REACH. BED ALARM ON. BED IN LOWEST AND LOCKED POSITION.
[2020-02-07 20:00] VITALS: BP 124/62
[2020-02-07] MEDS ORDERED: CLINDAMYCIN HCL 150 MG CAPSULE PO SCH (21:00)
[2020-02-07] MEDS: DOXYCYCLINE HYCLATE (100 MG) 100 MG TABLET PO SCH (21:27)
--- NOTE | 2020-02-07 23:11 | NUR ---
PT WAS ASKED AGAIN IF SHE WANTED TO USE THE NOC BIPAP BUT REFUSED; RN NOTIFIED. NO DISTRESS/SOB NOTED WHILE ON 5LNC. Addendum: 02/07/20 at 2312 by FABIEN MALDONADO RT Amended: Links added.
--- NOTE | 2020-02-08 00:58 | NUR ---
PER RT PATIENT REFUSED TO HAVE THE BI-PAP TONIGHT. ENCOURAGED THE PATIENT AND EXPLAINED THE BENEFITS, STILL REFUSED.
[2020-02-08] MEDS: ALBUTEROL FS 2.5 MG/3 ML VIAL.NEB NEB SCH ×4 (01:30→19:30)
[2020-02-08] MEDS: methylPREDNISolone SOD SUCC 40 MG/ML VIAL IV SCH ×2 (05:27→11:23)
--- NOTE | 2020-02-08 06:04 | NUR ---
MS RN CLOSING NOTES: PATIENT IN BED, ASLEEP,EASILY AROUSABLE. HOB ELEVATED. NO S/S DISTRESS NOTED. NEEDS ATTENDED.CALL LIGHT WITHIN REACH. BED ALARM ON. NO COMPLAIN OF PAIN. BED IN LOWEST AND LOCKED POSITION. WITH O2. WITH JIMENEZ CATHETER INTACT, WITH CLEAR YELLOW URINE OUTPUT.
[2020-02-08] MEDS: INSULIN REGULAR, HUMAN 100 UNIT/ML 3 ML VIAL SQ PRN ×4 (06:38→21:56)
--- NOTE | 2020-02-08 07:04 | NUR ---
MS RN OPENING NOTE RECEIVED PT AWAKE IN BED AT THIS TIME. AOX4, NO SOB NOTED, NO S/S OF ANY ACUTE DISTRESS NOTED. NO C/O PAIN AT THIS TIME. RESPIRATIONS ARE EVEN AND UNLABORED WITH EQUAL RISE AND FALL IN CHEST. MIRNA MIDLINE NOTED, PATENT, INTACT AND FLUSHING WELL. JIMENEZ CATHETER IN PLACE DRAINING TO GRAVITY CLEAR YELLOW URINE OUTPUT. FALL AND SAFETY PRECAUTION IN PLACE AND MAINTAINED AT ALL TIMES. BED IN LOWEST LOCKED POSITION, HOB ELEVATED, RAILS UP X 2, CALL LIGHT WITHIN REACH. WILL CONTINUE TO MONITOR Addendum: 02/08/20 at 1047 by RAYNA WARD RN MS RN OPENING NOTE RECEIVED PT AWAKE IN BED AT THIS TIME. AOX2, NO SOB NOTED, NO S/S OF ANY ACUTE DISTRESS NOTED. NO C/O PAIN AT THIS TIME. RESPIRATIONS ARE EVEN AND UNLABORED WITH EQUAL RISE AND FALL IN CHEST. MIRNA MIDLINE NOTED, PATENT, INTACT AND FLUSHING WELL. JIMENEZ CATHETER IN PLACE DRAINING TO GRAVITY CLEAR YELLOW URINE OUTPUT. FALL AND SAFETY PRECAUTION IN PLACE AND MAINTAINED AT ALL TIMES. BED IN LOWEST LOCKED POSITION, HOB ELEVATED, RAILS UP X 2, CALL LIGHT WITHIN REACH. WILL CONTINUE TO MONITOR
[2020-02-08 07:06] LABS: BASOPHILS % (AUTO) 0.2 % (0.0-2.0); HEMATOCRIT 47 % (33-45); HEMOGLOBIN 13.2 g/dL (11.5-14.8); LYMPHOCYTES # (AUTO) 0.3 /CMM (0.8-4.8); LYMPHOCYTES % (AUTO) 2.8 % (20.0-44.0); MEAN CORPUSCULAR HGB CONC 28 g/dl (31.0-36.0); MEAN CORPUSCULAR VOLUME 68 fL (82-100); MONOCYTES # (AUTO) 1.1 /CMM (0.1-1.30); MONOCYTES % (AUTO) 9.6 % (2.0-12.0); NEUTROPHILS # (AUTO) 9.9 /CMM (1.8-8.9); NEUTROPHILS % (AUTO) 87.4 % (43.0-81.0); PLATELET COUNT (AUTO) 72 /CMM (150-450); RED BLOOD CELL COUNT(AUTO) 6.96 MIL/uL (4.0-5.2); WHITE BLOOD COUNT (AUTO) 11.3 K/uL (4.3-11.0)
[2020-02-08 07:18] LABS: CALCIUM, SERUM 8.1 mg/dL (8.5-10.1); CREATININE 0.7 mg/dL (0.6-1.3); MAGNESIUM 2.3 mg/dL (1.8-2.4); PHOSPHORUS 3.4 mg/dL (2.5-4.9); POTASSIUM 4.1 mmol/L (3.5-5.1)
[2020-02-08] MEDS: AMLODIPINE BESYLATE 5 MG TABLET PO SCH (08:56)
[2020-02-08] MEDS: LISINOPRIL (5MG) 5 MG TABLET PO SCH (08:56)
[2020-02-08] MEDS: hydrALAZINE HCL 50 MG TABLET PO SCH ×3 (08:57→17:01)
[2020-02-08] MEDS: DOXYCYCLINE HYCLATE (100 MG) 100 MG TABLET PO SCH ×2 (08:57→20:35)
[2020-02-08] MEDS: GENTAMICIN 80 MG in IV D5W 50 ML IV SCH ×2 (09:10→20:35)
[2020-02-08] MEDS: BLOOD SUGAR DIAGNOSTIC 1 EACH STRIP IN SCH ×4 (09:35→21:55)
--- NOTE | 2020-02-08 10:15 | NUR ---
PT CONSULTED VIA TELEMEDICINE/HEALTH BY AT THIS TIME. WILL CONTINUE TO MONITOR
[2020-02-08] MEDS: QUETIAPINE FUMARATE 25 MG TABLET PO SCH ×2 (10:30→11:23)
[2020-02-08 10:37] LABS: LYMPHOCYTES % (MANUAL) 4 % (16-48); MONOCYTES % (MANUAL) 8 % (0-11.0); NEUTROPHILS % (MANUAL) 88 (42-76)
--- NOTE | 2020-02-08 11:38 | NUR ---
PT REFUSED SEROQUEL. MEDICATION RETURNED. WILL CONTINUE TO MONITOR
--- NOTE | 2020-02-08 12:14 | NUR ---
RECEIVED ORDERS FROM DR ALLEN, TO DISCONTINUE JIMENEZ CATHETER. ORDERS READ BACK AND CARRIED OUT. JIMENEZ CATHETER DISCONTINUED AT THIS TIME. WILL CONTINUE TO MONITOR
--- NOTE | 2020-02-08 19:10 | NUR ---
MS RN CLOSING NOTES PT AWAKE IN BED AT THIS TIME. PT REMAINED STABLE THROUGHOUT SHIFT. PT KEPT CLEAN AND DRY. ALL CARE, NEEDS, MEDICATION AND TREATMENT ADMINISTERED ANTICIPATED PER ORDER. FC CARE PROVIDED AND JIMENEZ CATHETER DISCONTINUED. ASPIRATION AND SAFETY PRECAUTION IN PLACE AND MAINTAINED AT ALL TIMES. BED IN LOWEST LOCKED POSITION, HOB ELEVATED, RAILS UP X 2, CALL LIGHT WITHIN REACH. WILL ENDORSE TO BED TEACHER NURSE FOR ANGEL
--- NOTE | 2020-02-08 19:40 | NUR ---
MS RN OPENING NOTES RECEIVED PATIENT FROM MORNING SHIFT, ALERT AND ORIENTED X 2-3 WITH EPISODES OF CONFUSION. VERBALLY RESPONSIVE AND ABLE TO FOLLOW DIRECTIONS. BREATHING REGULAR AND UNLABORED ON OXYGEN AT 6L/MIN VIA NASAL CANNULA. RIGHT UPPER ARM MIDLINE INTACT AND PATENT, FLUSHING WELL WITH NO BLEEDING OR S/S OF INFILTRATION NOTED. DENIES SUICIDAL IDEATION OR PAIN/DISCOMFORT AT THIS TIME. BED LOW AND LOCKED ON SEMI FOWLERS POSITION. CALL LIGHT IN REACH. WILL CONTINUE TO MONITOR.
[2020-02-08 20:00] VITALS: BP 141/63
[2020-02-08 20:40] VITALS: BP 141/63
[2020-02-08] MEDS: QUETIAPINE FUMARATE 100 MG TABLET PO SCH (21:28)
--- NOTE | 2020-02-08 22:00 | NUR ---
MS RN NOTES BS 204mg/dl, 4UNITS REGULAR INSULIN GIVEN SQ. SNACKS PROVIDED ON BEDSIDE. WILL CONTINUE TO MONITOR.
--- NOTE | 2020-02-08 23:00 | NUR ---
MS RN NOTES REFUSED BIPAP/CPAP APPLICATION, PER PATIENT SHE FEELS HOT WHENEVER ITS ON; TOLD HER THE AIR CONDITIONING IS ON BUT SHE STILL SAID NO. RISK AND BENEFITS EXPLAINED. MAINTAINED ON OXYGEN AT 6L/MIN VIA NASAL CANNULA, LATEST SPO2 94%. WILL CONTINUE TO MONITOR.
[2020-02-09] MEDS: ALBUTEROL FS 2.5 MG/3 ML VIAL.NEB NEB SCH ×4 (01:30→19:30)
[2020-02-09] MEDS: BLOOD SUGAR DIAGNOSTIC 1 EACH STRIP IN SCH ×4 (06:30→21:43)
[2020-02-09] MEDS: INSULIN REGULAR, HUMAN 100 UNIT/ML 3 ML VIAL SQ PRN ×4 (06:31→22:10)
--- NOTE | 2020-02-09 06:40 | NUR ---
MS RN CLOSING NOTES PATIENT IN BED, ALERT AND ORIENTED X 2-3 WITH EPISODES OF CONFUSION. AFEBRILE WITH NO S/S OF DISTRESS OBSERVED. LATEST SPO2 97%, STILL ON 6L/MIN OXYGEN VIA NASAL CANNULA. RIGHT UPPER ARM MIDLINE PATENT AND FLUSHING WELL. NO COMPLAINTS OF PAIN/DISCOMFORT REPORTED AT THIS TIME. BED LOW AND LOCKED ON SEMI FOWLERS POSITION. CALL LIGHT IN REACH. WILL ENDORSE TO MORNING SHIFT FOR ANGEL.
--- NOTE | 2020-02-09 07:06 | NUR ---
MS RN OPENING NOTE RECEIVED PT RESTING IN BED COMFORTABLY AT THIS TIME. AOX2-3, NO SOB NOTED, NO S/S OF ANY ACUTE DISTRESS NOTED. NO C/O PAIN AT THIS TIME. RESPIRATIONS ARE EVEN AND UNLABORED WITH EQUAL RISE AND FALL IN CHEST. DANIELA MIDLINE NOTED, PATENT, INTACT AND FLUSHING WELL. FALL AND SAFETY PRECAUTION IN PLACE AND MAINTAINED AT ALL TIMES. BED IN LOWEST LOCKED POSITION, HOB ELEVATED, RAILS UP X 2, CALL LIGHT WITHIN REACH. WILL CONTINUE TO MONITOR
[2020-02-09 08:00] VITALS: BP 138/75
--- NOTE | 2020-02-09 08:24 | NUR ---
refused ABG. pt suddenly move her hand on the middle of procedure and said " I don't want it." rn notified Addendum: 02/09/20 at 0827 by CHANCE LACKEY RT Amended: Links added.
[2020-02-09] MEDS: DOXYCYCLINE HYCLATE (100 MG) 100 MG TABLET PO SCH ×2 (09:18→21:37)
[2020-02-09] MEDS: hydrALAZINE HCL 50 MG TABLET PO SCH ×3 (09:18→17:40)
[2020-02-09] MEDS: methylPREDNISolone SOD SUCC 40 MG/ML VIAL IV SCH (09:18)
[2020-02-09] MEDS: AMLODIPINE BESYLATE 5 MG TABLET PO SCH (09:18)
[2020-02-09] MEDS: LISINOPRIL (5MG) 5 MG TABLET PO SCH (09:19)
[2020-02-09] MEDS: GENTAMICIN 80 MG in IV D5W 50 ML IV SCH ×2 (09:19→21:36)
[2020-02-09] MEDS: QUETIAPINE FUMARATE 25 MG TABLET PO SCH (09:19)
[2020-02-09 10:09] LABS: ABG BASE EXCESS 13.1 mmol/L; ABG OXYGEN SATURATION 86.4 % (92.0-98.5); ABG PCO2 78.8 mmHg (35.0-45.0); ABG PH 7.355 (7.350-7.450); ABG PO2 52.1 mmHg (75.0-100.0); AaDO2 91.2 mmHg; COHb 2.3 % (0.5-1.5); MetHb 0.5 % (0.0-1.5); SITE, ABG Right Radial; VENT MODE, BG nasal cannula
--- NOTE | 2020-02-09 10:21 | NUR ---
increased o2 flow from 3 lpm to 3.5 lpm o2 flow via nasal cannula per dr. porter. Addendum: 02/09/20 at 1022 by CHANCE LACKEY RT Amended: Links added.
[2020-02-09] MEDS: ACETYLCYSTEINE 10% SOLN 400 MG/4 ML VIAL NEB SCH ×3 (10:22→23:30)
[2020-02-09 15:23] LABS: BASOPHILS % (AUTO) 0.1 % (0.0-2.0); HEMATOCRIT 54 % (33-45); HEMOGLOBIN 14.7 g/dL (11.5-14.8); LYMPHOCYTES # (AUTO) 0.2 /CMM (0.8-4.8); LYMPHOCYTES % (AUTO) 1.6 % (20.0-44.0); MEAN CORPUSCULAR HGB CONC 27 g/dl (31.0-36.0); MEAN CORPUSCULAR VOLUME 69 fL (82-100); MONOCYTES # (AUTO) 0.6 /CMM (0.1-1.30); MONOCYTES % (AUTO) 4.5 % (2.0-12.0); NEUTROPHILS # (AUTO) 11.4 /CMM (1.8-8.9); NEUTROPHILS % (AUTO) 93.8 % (43.0-81.0); PLATELET COUNT (AUTO) 69 /CMM (150-450); WHITE BLOOD COUNT (AUTO) 12.2 K/uL (4.3-11.0)
[2020-02-09 15:40] LABS: CALCIUM, SERUM 7.8 mg/dL (8.5-10.1); CREATININE 0.8 mg/dL (0.6-1.3); MAGNESIUM 1.9 mg/dL (1.8-2.4); PHOSPHORUS 3.3 mg/dL (2.5-4.9); POTASSIUM 4.4 mmol/L (3.5-5.1)
[2020-02-09 16:00] VITALS: BP 124/68
--- NOTE | 2020-02-09 16:00 | NUR ---
RECEIVED CRITICAL LAB REPORT FOR CO2 OF 42 FROM [facility] AT THIS TIME. REPORT READ BACK. DR WOOTEN AND AMAIRANI, CHARGE NURSE MADE AWARE. NO NEW ORDERS AT THIS TIME. WILL CONTINUE TO MONITOR.
[2020-02-09 16:28] LABS: NEUTROPHILS % (MANUAL) 93 (42-76)
[2020-02-09 16:29] LABS: LYMPHOCYTES % (MANUAL) 3 % (16-48); MONOCYTES % (MANUAL) 4 % (0-11.0)
--- NOTE | 2020-02-09 19:07 | NUR ---
MS RN CLOSING NOTES PT AWAKE IN BED AT THIS TIME. PT REMAINED STABLE THROUGHOUT SHIFT. PT KEPT CLEAN AND DRY. ALL CARE, NEEDS, MEDICATION AND TREATMENT ADMINISTERED ANTICIPATED PER ORDER. FALL AND SAFETY PRECAUTION IN PLACE AND MAINTAINED AT ALL TIMES. BED IN LOWEST LOCKED POSITION, HOB ELEVATED, RAILS UP X 2, CALL LIGHT WITHIN REACH. WILL ENDORSE TO VENEER STAPLER NURSE FOR ANGEL
--- NOTE | 2020-02-09 19:37 | NUR ---
MS RN NOTES RECEIVED PATIENT AWAKE IN BED AT THIS TIME. IN STABLE CONDITION, NO SIGNS OF ACUTE DISTRESS NOTED. . PT KEPT CLEAN AND DRY. FALL AND SAFETY PRECAUTION IN PLACE AND MAINTAINED AT ALL TIMES. BED IN LOWEST LOCKED POSITION, HOB ELEVATED, RAILS UP X 2, CALL LIGHT WITHIN EASY REACH. ALL NEEDS ANTICIPATED. WILL CONTINUE TO MONITOR ACCORDINGLY.
[2020-02-09 20:00] VITALS: BP 139/66
[2020-02-09] MEDS: QUETIAPINE FUMARATE 100 MG TABLET PO SCH (21:37)
[2020-02-10] MEDS: ALBUTEROL FS 2.5 MG/3 ML VIAL.NEB NEB SCH ×4 (01:30→19:55)
[2020-02-10] MEDS: ACETYLCYSTEINE 10% SOLN 400 MG/4 ML VIAL NEB SCH ×3 (01:53→15:30)
--- NOTE | 2020-02-10 06:59 | NUR ---
MS RN NOTES PATIENT HAS BEEN REFUSING CARE, REFUSED CXR. IN AM, REFUSED AM BLOOD SUGAR CHECK IN STABLE CONDITION, NO SIGNS OF ACUTE DISTRESS NOTED. . PT KEPT CLEAN AND DRY. FALL AND SAFETY PRECAUTION IN PLACE AND MAINTAINED AT ALL TIMES. BED IN LOWEST LOCKED POSITION, HOB ELEVATED, RAILS UP X 2, CALL LIGHT WITHIN EASY REACH. ALL NEEDS ANTICIPATED. WILL ENDORSE TO AM NURSE FOR ANGEL.
[2020-02-10] MEDS: BLOOD SUGAR DIAGNOSTIC 1 EACH STRIP IN SCH ×4 (07:30→22:05)
--- NOTE | 2020-02-10 07:42 | NUR ---
MS RN OPENING NOTE BEDSIDE ENDORSEMENT DONE. PATIENT IS IN BED, AWAKE AND VERBALLY RESPONSIVE. A/O X2-3, ABLE TO MAKE NEEDS KNOWN. NO ACUTE DISTRESS, NO C/O PAIN AT THIS TIME. TRIED TO TAKE BLOOD SUGAR THIS AM BUT PATIENT STILL REFUSED. ON O2 VIA NC AT 3.5LPM. HOB ELEVATED, RESPIRATIONS ARE EVEN AND UNLABORED. DANIELA MIDLINE NOTED, PATENT, INTACT AND FLUSHING WELL. FALL AND SAFETY PRECAUTION IN PLACE: BED IN LOWEST LOCKED POSITION, SIDE RAILS UP X 2. CALL LIGHT PLACED WITHIN REACH. WILL CONTINUE TO MONITOR.
[2020-02-10 08:00] VITALS: BP 128/71
--- NOTE | 2020-02-10 08:02 | NUR ---
PT CURRENTLY ASLEEP. NO S/S OF SOB NOTED. WILL CONT TO MONITOR Addendum: 02/10/20 at 0802 by ELANA FOOTE RT Amended: Links added.
[2020-02-10] MEDS: hydrALAZINE HCL 50 MG TABLET PO SCH ×3 (08:52→17:21)
[2020-02-10] MEDS: DOXYCYCLINE HYCLATE (100 MG) 100 MG TABLET PO SCH ×2 (08:54→20:08)
[2020-02-10] MEDS: LISINOPRIL (5MG) 5 MG TABLET PO SCH (08:54)
[2020-02-10] MEDS: AMLODIPINE BESYLATE 5 MG TABLET PO SCH (08:54)
[2020-02-10] MEDS: methylPREDNISolone SOD SUCC 40 MG/ML VIAL IV SCH (08:55)
[2020-02-10] MEDS: GENTAMICIN 80 MG in IV D5W 50 ML IV SCH ×2 (08:55→20:08)
[2020-02-10] MEDS: QUETIAPINE FUMARATE 25 MG TABLET PO SCH (08:58)
[2020-02-10] MEDS: QUETIAPINE FUMARATE 100 MG TABLET PO SCH (09:00)
--- NOTE | 2020-02-10 10:50 | NUR ---
RN NOTES PATIENT IS FOR US GUIDED THORACENTESIS. TELEPHONE CONSENT OBTAINED FROM SISTER MATHEUS BRAUN TEL# .
[2020-02-10] MEDS: INSULIN REGULAR, HUMAN 100 UNIT/ML 3 ML VIAL SQ PRN ×3 (12:24→22:08)
--- NOTE | 2020-02-10 12:25 | NUR ---
RN NOTES PT S/P US GUIDED THORACENTESIS OF LEFT LUNG BY DR ALVARADO ASSISTED BY [employer] WITH SEROSANGUINEOUS OUTPUT OF 860ML. PLEURAL OUTPUT/SPECIMEN SENT TO LAB FOR CYTOLOGY STUDIES PER MD ORDER.
--- NOTE | 2020-02-10 14:02 | NUR ---
PT REFUSED RESP TX ATT. NO S/S OF SOB NOTED. WILL CONT TO MONITOR Addendum: 02/10/20 at 1403 by ELANA FOOTE RT Amended: Links added.
[2020-02-10 17:00] LABS: BASOPHILS % (AUTO) 0.1 % (0.0-2.0); HEMATOCRIT 54 % (33-45); HEMOGLOBIN 14.7 g/dL (11.5-14.8); LYMPHOCYTES # (AUTO) 0.3 /CMM (0.8-4.8); LYMPHOCYTES % (AUTO) 2.3 % (20.0-44.0); MEAN CORPUSCULAR HGB CONC 27 g/dl (31.0-36.0); MEAN CORPUSCULAR VOLUME 69 fL (82-100); MONOCYTES # (AUTO) 0.8 /CMM (0.1-1.30); MONOCYTES % (AUTO) 7.3 % (2.0-12.0); NEUTROPHILS # (AUTO) 10.1 /CMM (1.8-8.9); NEUTROPHILS % (AUTO) 90.3 % (43.0-81.0); PLATELET COUNT (AUTO) 62 /CMM (150-450); RED BLOOD CELL COUNT(AUTO) 7.82 MIL/uL (4.0-5.2); WHITE BLOOD COUNT (AUTO) 11.2 K/uL (4.3-11.0)
[2020-02-10 17:23] LABS: CALCIUM, SERUM 7.9 mg/dL (8.5-10.1); CREATININE 0.9 mg/dL (0.6-1.3); MAGNESIUM 1.8 mg/dL (1.8-2.4); PHOSPHORUS 2.6 mg/dL (2.5-4.9); POTASSIUM 4.6 mmol/L (3.5-5.1)
[2020-02-10 17:49] LABS: LYMPHOCYTES % (MANUAL) 5 % (16-48); MONOCYTES % (MANUAL) 5 % (0-11.0); NEUTROPHILS % (MANUAL) 90 (42-76)
--- NOTE | 2020-02-10 18:43 | NUR ---
MS RN CLOSING NOTES PATIENT IS IN BED RESTING@ MODERATE HIGH BACKREST POSITION., AWAKE AND VERBALLY RESPONSIVE. A/O X2-3. CONTINUES ON O2 VIA NC AT 3.5LPM, BREATHING EVEN AND UNLABORED, NO RESPIRATORY DISTRESS NOTED. DANIELA ON MIDLINE IS PATENT, INTACT AND FLUSHING WELL. S/P US-GUIDED THORACENTESIS OF LEFT LUNG TODAY, NO BLEEDING AND NO COMPLAINT OF PAIN AT THE SITE. FALL AND SAFETY PRECAUTIONS MAINTAINED: BED IN LOWEST LOCKED POSITION, SIDE RAILS UP X 2, AND CALL LIGHT PLACED WITHIN REACH. WILL ENDORSE TO FLAP MAKER NURSE FOR ANGEL.
--- NOTE | 2020-02-10 19:25 | NUR ---
MS NIC OPEN NOTES PATIENT IS LAYING IN BED. A/O X2-3, WITH PERIODS OF CONFUSION. ON 4L NASAL CANULA, NO SOB/ ACUTE RESPIRATORY DISTRESS NOTED. MIDLINE IN RIGHT UPPERARM IS PATENT AND INTACT. NO COMPLAINTS OF PAIN AT THE MOMENT. BED IS IN LOWEST LOCKED POSITION WITH SIDE RAILS UP X3, SEMI FOWLERS. CALL LIGHT IS WITHIN REACH. WILL CONTINUE TO MONITOR.
[2020-02-10 20:00] VITALS: BP 143/74
[2020-02-11] MEDS: ALBUTEROL FS 2.5 MG/3 ML VIAL.NEB NEB SCH ×4 (01:30→19:30)
--- NOTE | 2020-02-11 06:36 | NUR ---
MS RN NOTES PATIENT REFUSED ACCUCHECK. WILL CONTINUE TO MONITOR PT.
--- NOTE | 2020-02-11 06:37 | NUR ---
MS RN CLOSE NOTES PATIENT IS LAYING IN BED. A/O X2, WITH PERIODS OF CONFUSION. ON 5L NASAL CANULA, NO SOB/ ACUTE RESPIRATORY DISTRESS NOTED. MIDLINE IN RIGHT UPPERARM IS PATENT AND INTACT, ALL DUE ANTIBIOTICS GIVEN. APPEARS COMFORTABLE/ NO COMPLAINTS OF PAIN AT THE MOMENT. PT REFUSED LAST ACCUCHECK. BED IS IN LOWEST LOCKED POSITION WITH SIDE RAILS UP X3, SEMI FOWLERS. CALL LIGHT IS WITHIN REACH. WILL ENDORSE TO AM NURSE.
[2020-02-11] MEDS: BLOOD SUGAR DIAGNOSTIC 1 EACH STRIP IN SCH ×4 (06:45→22:33)
--- NOTE | 2020-02-11 07:13 | NUR ---
MS RN OPENING NOTES RECEIVED PT AWAKE IN BED IN NO ACUTE SIGNS OF DISTRESS. A/O X2. VERBALLY RESPONSIVE, CALM AND QUIET WITH NO C/O PAIN OR DISCOMFORTS VOICED AT THIS TIME. ON O2 VIA NC AT 5LPM, TOLERATING WELL WITH NO SOB NOTED, SP02 NOTED @ 96% AT THIS TIME. DANIELA MIDLINE PATENT, INTACT AND FLUSHING WELL. FALL AND SAFETY PRECAUTIONS IN PLACE: BED IN LOWEST LOCKED POSITION, SIDE RAILS UP X 2. CALL LIGHT WITHIN REACH. WILL CONTINUE TO MONITOR.
[2020-02-11] MEDS: ACETYLCYSTEINE 10% SOLN 400 MG/4 ML VIAL NEB SCH ×3 (07:35→23:30)
[2020-02-11 07:51] VITALS: BP 141/79
--- NOTE | 2020-02-11 07:56 | NUR ---
RT PATIENT REFUSED RESP HHN TX. PT AWAKE, ALERT, ZERO SOB. SPO2 93% DIM B/S.
[2020-02-11 08:00] VITALS: BP 141/79
[2020-02-11] MEDS: DOXYCYCLINE HYCLATE (100 MG) 100 MG TABLET PO SCH ×2 (08:41→22:30)
[2020-02-11] MEDS: AMLODIPINE BESYLATE 5 MG TABLET PO SCH (08:41)
[2020-02-11] MEDS: methylPREDNISolone SOD SUCC 40 MG/ML VIAL IV SCH (08:42)
[2020-02-11] MEDS: hydrALAZINE HCL 50 MG TABLET PO SCH ×3 (08:42→16:34)
[2020-02-11] MEDS: LISINOPRIL (5MG) 5 MG TABLET PO SCH (08:42)
[2020-02-11] MEDS: QUETIAPINE FUMARATE 25 MG TABLET PO SCH (09:00)
[2020-02-11] MEDS: GENTAMICIN 80 MG in IV D5W 50 ML IV SCH ×2 (09:28→21:45)
--- NOTE | 2020-02-11 10:03 | NUR ---
RT ABG DONE AND RESULTS SENT TO DR GUERRERO
[2020-02-11 11:06] LABS: ABG OXYGEN SATURATION 90.1 % (92.0-98.5); ABG PCO2 83.2 mmHg (35.0-45.0); ABG PH 7.351 (7.350-7.450); ABG PO2 60.7 mmHg (75.0-100.0); AaDO2 128.8 mmHg; COHb 2.1 % (0.5-1.5); MetHb 0.3 % (0.0-1.5); O2Hb 87.9 % (94.0-97.0); SITE, ABG Right Radial
[2020-02-11] MEDS: INSULIN REGULAR, HUMAN 100 UNIT/ML 3 ML VIAL SQ PRN ×2 (11:39→17:19)
[2020-02-11 11:40] LABS: BASOPHILS % (AUTO) 0.2 % (0.0-2.0); HEMATOCRIT 49 % (33-45); HEMOGLOBIN 13.4 g/dL (11.5-14.8); LYMPHOCYTES # (AUTO) 0.2 /CMM (0.8-4.8); LYMPHOCYTES % (AUTO) 2.3 % (20.0-44.0); MEAN CORPUSCULAR HGB CONC 28 g/dl (31.0-36.0); MEAN CORPUSCULAR VOLUME 69 fL (82-100); MONOCYTES # (AUTO) 0.6 /CMM (0.1-1.30); MONOCYTES % (AUTO) 6.3 % (2.0-12.0); NEUTROPHILS # (AUTO) 9.2 /CMM (1.8-8.9); NEUTROPHILS % (AUTO) 91.2 % (43.0-81.0); PLATELET COUNT (AUTO) 68 /CMM (150-450); RED BLOOD CELL COUNT(AUTO) 7.03 MIL/uL (4.0-5.2); WHITE BLOOD COUNT (AUTO) 10.1 K/uL (4.3-11.0)
--- NOTE | 2020-02-11 11:44 | NUR ---
RN NOTES ABG DONE BY RT AND RESULTS SHOWED HIGH CO2 83.2. DR GUERRERO MADE AWARE WITH ORDER TO DO ABG TOMORROW MORNING. PT IN NO ACUTE SIGNS OF RESPIRATORY DISTRESS NOTED. WILL CONTINUE TO MONITOR
[2020-02-11 11:51] LABS: CALCIUM, SERUM 7.9 mg/dL (8.5-10.1); CREATININE 0.6 mg/dL (0.6-1.3); MAGNESIUM 1.7 mg/dL (1.8-2.4); PHOSPHORUS 3.2 mg/dL (2.5-4.9); POTASSIUM 4.5 mmol/L (3.5-5.1)
[2020-02-11] MEDS: Magnesium 1GM/D5W 100ML PREMIX 100 ML IV SCH ×2 (12:26→13:48)
[2020-02-11 15:35] VITALS: BP 165/74
[2020-02-11 16:41] LABS: BAND % (MANUAL) 2 % (0.0-5.0); LYMPHOCYTES % (MANUAL) 6 % (16-48); MONOCYTES % (MANUAL) 2 % (0-11.0); NEUTROPHILS % (MANUAL) 90 (42-76)
--- NOTE | 2020-02-11 18:46 | NUR ---
MS RN CLOSING NOTES PATIENT IS IN BED, AWAKE, RESTING, AND LYING AT MODERATE HIGH BACKREST POSITION. A/O X2-3. ON O2 VIA NC AT 5LPM, BREATHING EVEN AND UNLABORED, NO RESPIRATORY DISTRESS NOTED. DANIELA ON MIDLINE IS PATENT, INTACT AND FLUSHING WELL. FALL AND SAFETY PRECAUTIONS MAINTAINED: BED IN LOWEST LOCKED POSITION, SIDE RAILS UP X 2, AND CALL LIGHT PLACED WITHIN REACH. WILL ENDORSE TO GAS CUTTER NURSE FOR ANGEL.
[2020-02-11 20:00] VITALS: BP 144/71
[2020-02-11] MEDS: QUETIAPINE FUMARATE 100 MG TABLET PO SCH (22:00)
--- NOTE | 2020-02-11 22:50 | NUR ---
MSRN REFUSED ACCUCHECK AT THIS TIME. HAD APPLE JUICE ONLY REQUESTED. DUE MED GIVEN EXCEPT SEROQUEL. STATED SHE DOES NOT TAKE SEROQUEL.
--- NOTE | 2020-02-11 23:00 | NUR ---
MSRN TAKES 02 OFF AT TIMES, EASILY DESATURATES AT 80%. ENCOURAGED TO MAINTAIN 02, EASILY GETS IRRITATED WHEN REMINDED.
[2020-02-12] MEDS: ALBUTEROL FS 2.5 MG/3 ML VIAL.NEB NEB SCH ×4 (01:25→19:30)
--- NOTE | 2020-02-12 04:22 | NUR ---
MSRN SLEPT GOOD, MAINTAINED SATURATION 91 TO 93 % ON 5 L.
--- NOTE | 2020-02-12 06:58 | NUR ---
msrn agreed blood draw. bs 126
--- NOTE | 2020-02-12 07:30 | NUR ---
MS/RN OPENING NOTE Received patient awake in bed, A&O x 2, able to make needs known. Breathing even and non-labored on 5L oxygen via NC, saturating at 90%. No respiratory or cardiac distress noted. Denies any pain and discomfort at this time. DANIELA Midline access noted, patent and intact, and flushing well. No s/s of infiltration, infection, or bleeding noted on site. Sensation from all peripheral extremities intact. Fall precautions maintained. Will continue to monitor for any changes of condition.
[2020-02-12] MEDS: ACETYLCYSTEINE 10% SOLN 400 MG/4 ML VIAL NEB SCH ×3 (07:35→23:30)
[2020-02-12 07:45] LABS: BASOPHILS % (AUTO) 0.3 % (0.0-2.0); HEMATOCRIT 47 % (33-45); HEMOGLOBIN 13.2 g/dL (11.5-14.8); LYMPHOCYTES # (AUTO) 0.9 /CMM (0.8-4.8); LYMPHOCYTES % (AUTO) 10.6 % (20.0-44.0); MEAN CORPUSCULAR HGB CONC 28 g/dl (31.0-36.0); MEAN CORPUSCULAR VOLUME 70 fL (82-100); MONOCYTES # (AUTO) 1.5 /CMM (0.1-1.30); MONOCYTES % (AUTO) 16.8 % (2.0-12.0); NEUTROPHILS # (AUTO) 6.3 /CMM (1.8-8.9); NEUTROPHILS % (AUTO) 72.3 % (43.0-81.0); PLATELET COUNT (AUTO) 77 /CMM (150-450); RED BLOOD CELL COUNT(AUTO) 6.81 MIL/uL (4.0-5.2); WHITE BLOOD COUNT (AUTO) 8.7 K/uL (4.3-11.0)
[2020-02-12 07:55] LABS: CALCIUM, SERUM 7.9 mg/dL (8.5-10.1); CREATININE 0.6 mg/dL (0.6-1.3); MAGNESIUM 2.1 mg/dL (1.8-2.4); POTASSIUM 4.4 mmol/L (3.5-5.1)
[2020-02-12 08:00] VITALS: BP 155/79
--- NOTE | 2020-02-12 08:00 | NUR ---
RT PATIENT REFUSED MORNING RESP TX AND ABG. RN NOTIFIED AND DR GUERRERO AWARE. PATIENT AWAKE, ALERT, NO SOB. ON SUPPLEMENTAL O2
[2020-02-12] MEDS: BLOOD SUGAR DIAGNOSTIC 1 EACH STRIP IN SCH ×4 (08:09→21:01)
--- NOTE | 2020-02-12 08:15 | NUR ---
MS/RN NOTE Got called up by lab for pt's critical lab value of [address] Chamberlain, no new orders at this time. Patient currently saturating at 88-90% on 5L oxygen via NC, no respiratory distress noted.
[2020-02-12] MEDS: DOXYCYCLINE HYCLATE (100 MG) 100 MG TABLET PO SCH ×2 (08:46→20:56)
[2020-02-12] MEDS: hydrALAZINE HCL 50 MG TABLET PO SCH ×3 (08:47→16:33)
[2020-02-12] MEDS: QUETIAPINE FUMARATE 25 MG TABLET PO SCH ×2 (08:47→09:00)
[2020-02-12] MEDS: LISINOPRIL (5MG) 5 MG TABLET PO SCH (08:48)
[2020-02-12] MEDS: GENTAMICIN 80 MG in IV D5W 50 ML IV SCH ×2 (08:48→20:51)
[2020-02-12] MEDS: AMLODIPINE BESYLATE 5 MG TABLET PO SCH (08:48)
[2020-02-12] MEDS: methylPREDNISolone SOD SUCC 40 MG/ML VIAL IV SCH (08:48)
--- NOTE | 2020-02-12 09:00 | NUR ---
MS/RN NOTE Patient refused quetiapine fumarate, educated risks and benefits, still insists on not taking it. Non-administered. Will continue to monitor patient.
[2020-02-12 09:47] LABS: LYMPHOCYTES % (MANUAL) 6 % (16-48); MONOCYTES % (MANUAL) 5 % (0-11.0); NEUTROPHILS % (MANUAL) 89 (42-76)
[2020-02-12] MEDS: INSULIN REGULAR, HUMAN 100 UNIT/ML 3 ML VIAL SQ PRN ×4 (11:51→21:02)
--- NOTE | 2020-02-12 12:30 | NUR ---
MS/RN NOTE Dr. Perez at bedside, will put an order of risperidal and she discontinued seroquel.
--- NOTE | 2020-02-12 12:48 | NUR ---
MS/RN NOTE Patient BS 232, refusing insulin. States "I let my blood sugar come down naturally." Explained risks and benefits of non-administering insulin three times, insists to refuse med. Will continue to monitor patient for any changes of condition.
--- NOTE | 2020-02-12 13:05 | NUR ---
MS/RN NOTE Patient refused hydralazine, insists that her BP is in a [ Addendum: 02/12/20 at 1307 by TENNILLE REED RN (cont.) "normal range," even though her BP is at 148/82. Instructed patient the importance of the medication, insists on refusing med. Will continue to monitor patient.
[2020-02-12] MEDS: risperiDONE-M 0.5 MG TAB.RAPDIS PO SCH ×2 (14:42→16:34)
--- NOTE | 2020-02-12 15:20 | NUR ---
MS/RN NOTE Patient refusing to have oxygen and continuous pulse ox, states "I don't have to wear it all the time, I am able to breathe on my own. The pulse ox bothers me, it scratches my face when I touch it, so I don't like it." Told the importance of oxygen use and treatment, patient refuses entirely. Will attempt to convince patient to wear it throughout shift.
[2020-02-12 16:12] VITALS: BP 140/61
--- NOTE | 2020-02-12 19:01 | NUR ---
MS/RN CLOSING NOTE Patient resting in bed, remains A&O x 2, confused. Breathing even and non-labored on RA, refusing to put nasal cannula on 5 L oxygen because her "nose is itchy right now." No respiratory or cardiac distress noted. Midline access # [id number] remained patent and intact, and flushing well. No s/s of pain and discomfort at this time. Sensation from all peripheral extremities intact. Bed locked to its lowest position, side rails up x2, instructed patient to use call light when in need of assistance. Will endorse to cnc machinist 2nd shift nurse.
--- NOTE | 2020-02-12 19:30 | NUR ---
rn staffing: received report from andres florez. met with pt in the room, a/o x2, not on oxygen, per day rn pt been taking it off the entire day, md aware, dest's to low 80's, also pt refusing for oxygen monitoring, keep yelling "i dont need it, it makes me irritated". education provided to pt. pt has abilio midline, patent and flushing well, on hl. s/p thoracentesis 02/09 with 860 ml out. pt also refused scd, despite providing education. seen by psych md, will start of risperdal, seroquel was dc'd. safety precautions for fall initiated, call light in reach, will continue monitoring pt.
--- NOTE | 2020-02-12 19:40 | NUR ---
RT SPOKE TO NIC FAY ABOUT PT STATUS. PLACED ON 5LPM NC BY RN D/T DESATURATION. SPO2 CURRENTLY @95% ON 5LPM NC. ASKED PT IF SHE WANTED BREATHING TX SHE REFUSED. ASKED TO ASK HER AGAIN FOR NEXT TX. PT REFUSED NOC BIPAP, STATED SHE TOLD THE NURSE AND THE MD ABOUT HER FRUSTRATIONS. WILL CONTINUE TO MONITOR T/O SHIFT.
--- NOTE | 2020-02-12 19:51 | NUR ---
RN NOTES: INSPECTOR SUBASSEMBLIES AND RN IN THE ROOM. WHEN WE RECEIVED THE PT, PT NOT ON OXYGEN. PT SPO2 ON RA IS 87%, NOTED TO BE TACHYPNEIC, PT STATING SHE DOESNT WANT TO USE OXYGEN BECAUSE IT MAKES HER WEEK. PER REPORT PT BEEN NON COMPLIANT WITH OXYGEN USE, AND SPO2 DROP TO LOW 80'S WHERE MD MADE AWARE BY DAY RN, ALSO MD AWARE OF PT'S BEHAVIOR OF BEING NON COMPLIANT. AFTER MANY TIMES OF ENCOURAGING PT, SHE FINALLY AGREE TO USE OXYGEN, PT ON 5L OXYGEN, WHEN SPO2 WAS CHECK IT APPEARS 93%. PT REFUSED TO BE CONNECTED ON CONTINOUS PULSE OXIMETRY DESPITE PROVIDING EDUCATION. SALES AND MARKETING DIRECTOR AND RT MADE AWARE.
[2020-02-12 20:00] VITALS: BP 124/64
[2020-02-12 20:28] VITALS: BP 124/64
[2020-02-12] MEDS: BENZTROPINE MESYLATE (1 MG) 1 MG TABLET PO SCH (20:58)
--- NOTE | 2020-02-12 20:58 | NUR ---
rn notes/refusal for cogentin: pt refused taking cogentin stated she doesnt need it. pt very non compliant. education provided to pt. rn mitzy as witness.
[2020-02-12] MEDS ORDERED: risperiDONE-M 0.5 MG TAB.RAPDIS PO SCH (21:00)
--- NOTE | 2020-02-12 21:10 | NUR ---
rn notes: pt consistently refusing foroxygen use, spo2 low 80's. programming internship made aware. able to convinced pt to use oxygen, spop2 went up to 90-91%, copd pt.
--- NOTE | 2020-02-12 22:35 | NUR ---
rn notes: pt asleep, using her oxygen, spo2 90%, rr 22.
[2020-02-13] MEDS: ALBUTEROL FS 2.5 MG/3 ML VIAL.NEB NEB SCH ×4 (01:23→19:30)
[2020-02-13] MEDS: BLOOD SUGAR DIAGNOSTIC 1 EACH STRIP IN SCH ×4 (06:16→20:37)
[2020-02-13] MEDS: INSULIN REGULAR, HUMAN 100 UNIT/ML 3 ML VIAL SQ PRN ×4 (06:17→20:34)
--- NOTE | 2020-02-13 06:17 | NUR ---
accu check 102: fingerstick blood glucose check result is 102, no insulin coverage given per sliding scale.
--- NOTE | 2020-02-13 07:01 | NUR ---
END OF SHIFT REPORT: Pt remains uncooperative at times. At this moment, pt remains to refused continuos pulse ox monitoring, but agree to use her oxygen. Iv access remains patent and flushing well, on hl, no s/s of iv infiltration noted. Vs remains stable, needs attended. Safety precautions for fall remains engaged, call light in reach, will endorse to day rn for continuity of care.
[2020-02-13 07:39] LABS: BASOPHILS % (AUTO) 0.1 % (0.0-2.0); HEMATOCRIT 45 % (33-45); HEMOGLOBIN 12.9 g/dL (11.5-14.8); LYMPHOCYTES # (AUTO) 1.4 /CMM (0.8-4.8); LYMPHOCYTES % (AUTO) 16.6 % (20.0-44.0); MEAN CORPUSCULAR HGB CONC 28 g/dl (31.0-36.0); MEAN CORPUSCULAR VOLUME 69 fL (82-100); MONOCYTES # (AUTO) 1.3 /CMM (0.1-1.30); MONOCYTES % (AUTO) 14.8 % (2.0-12.0); NEUTROPHILS # (AUTO) 5.9 /CMM (1.8-8.9); NEUTROPHILS % (AUTO) 68.5 % (43.0-81.0); PLATELET COUNT (AUTO) 91 /CMM (150-450); RED BLOOD CELL COUNT(AUTO) 6.57 MIL/uL (4.0-5.2); WHITE BLOOD COUNT (AUTO) 8.6 K/uL (4.3-11.0)
[2020-02-13 08:00] VITALS: BP 152/85
--- NOTE | 2020-02-13 08:13 | NUR ---
MS RN OPENING NOTES PATIENT IS AWAKE A/OX 2-3 WITH NO SIGNS OF DISTRESS AND NO SOB ON 5L OF NASAL CANNULA SATURATING AT 95%. R UPPER ARM MIDLINE. PATIENT HAS NO COMPLAINS OF PAIN AT THIS MOMENT. SAFETY MEASURES ARE APPLIED BED IS IN A LOW AND LOCKED POSITION. ELECTROGALVANIZING MACHINE OPERATOR RAILS UP X 2 FOR SAFETY. CALL LIGHT WITHIN REACH. WILL CONTINUE TO MONITOR.
[2020-02-13 08:29] LABS: CALCIUM, SERUM 8.2 mg/dL (8.5-10.1); CREATININE 0.6 mg/dL (0.6-1.3); MAGNESIUM 1.9 mg/dL (1.8-2.4); PHOSPHORUS 3.2 mg/dL (2.5-4.9)
[2020-02-13] MEDS: ACETYLCYSTEINE 10% SOLN 400 MG/4 ML VIAL NEB SCH ×3 (08:51→23:30)
[2020-02-13] MEDS: BENZTROPINE MESYLATE (1 MG) 1 MG TABLET PO SCH ×2 (09:00→20:36)
[2020-02-13] MEDS: LISINOPRIL (5MG) 5 MG TABLET PO SCH (09:35)
[2020-02-13] MEDS: hydrALAZINE HCL 50 MG TABLET PO SCH ×3 (09:37→16:51)
[2020-02-13] MEDS: AMLODIPINE BESYLATE 5 MG TABLET PO SCH (09:38)
[2020-02-13] MEDS: risperiDONE-M 0.5 MG TAB.RAPDIS PO SCH ×4 (09:40→20:35)
[2020-02-13] MEDS: DOXYCYCLINE HYCLATE (100 MG) 100 MG TABLET PO SCH ×2 (09:42→20:36)
[2020-02-13] MEDS: methylPREDNISolone SOD SUCC 40 MG/ML VIAL IV SCH (09:43)
[2020-02-13] MEDS: GENTAMICIN 80 MG in IV D5W 50 ML IV SCH ×2 (09:43→20:42)
[2020-02-13] MEDS: LISINOPRIL (20MG) 20 MG TABLET PO SCH (10:24)
[2020-02-13] MEDS: ISOSORBIDE DINITRATE (20MG) 20 MG TABLET PO SCH ×2 (10:25→16:52)
[2020-02-13 12:02] LABS: LYMPHOCYTES % (MANUAL) 7 % (16-48); MONOCYTES % (MANUAL) 12 % (0-11.0); NEUTROPHILS % (MANUAL) 81 (42-76)
[2020-02-13 16:00] VITALS: BP 110/46
--- NOTE | 2020-02-13 19:37 | NUR ---
MS RN CLOSING NOTES PATIENT IS AWAKE A/OX 2-3 WITH NO SIGNS OF DISTRESS AND NO SOB ON 5L OF NASAL CANNULA SATURATING AT 97%. R UPPER ARM MIDLINE. PATIENT HAS NO COMPLAINS OF PAIN AT THIS MOMENT. PATIENT REMAINED STABLE THROUGH OUT SHIFT. PATIENT KEPT CLEAN AND DRY. ALL NEEDS, CARE, TREATMENT AND MEDICATIONS ADMINISTERED ANTICIPATED PER ORDER. SAFETY MEASURES ARE APPLIED BED IS IN A LOW AND LOCKED POSITION. ENGINEERING DOCUMENTATION SPECIALIST RAILS UP X 2 FOR SAFETY. CALL LIGHT WITHIN REACH. WILL ENDORSE TO THE NEXT FIRE RANGE TECHNICIAN.
--- NOTE | 2020-02-13 19:48 | NUR ---
rn hospital: Received report from Aminata florez at 1915. Pt in bed, resting, appears calm and comfortable, when asked how's her day going, pt calmly stated "its okay". pt uses/wearing her oxygen, on 5l via nc, respirations even and unlabored. denies any pain or discomfort at this time. has right upper arm midline, patent and flushing well, on hl. safety precautions for fall initiated, call light in reach, will continue monitoring pt.
[2020-02-13 20:00] VITALS: BP 120/52
--- NOTE | 2020-02-13 20:37 | NUR ---
rn notes/refusal for cogentin/accu check 188: pt insisted to have her blood sugar check now, stating she would like to eat sand which and coffee with 2sugars and creamers. education provided to pt. trademark attorney made aware. bs 188, 3units of insulin administered per sliding scale. pt refused taking cogentin, stated she never had cogentin before and she feels that she doesnt need it. education provided to pt regarding medication compliance and action.
--- NOTE | 2020-02-13 20:56 | NUR ---
rn notes: assisted pt to the bathroom, using fww and 2 person standby assist. assisted back to bed. connected back to iv atb. fall precaution engaged, call light in reach.
--- NOTE | 2020-02-13 22:49 | NUR ---
rn notes: pt sleeping, on 5l oxygen via nc respirations even and unlabored. equal rise and fall of chest noted.
[2020-02-14] MEDS: ALBUTEROL FS 2.5 MG/3 ML VIAL.NEB NEB SCH ×4 (01:30→19:30)
[2020-02-14] MEDS: BLOOD SUGAR DIAGNOSTIC 1 EACH STRIP IN SCH ×4 (04:58→22:05)
[2020-02-14] MEDS: INSULIN REGULAR, HUMAN 100 UNIT/ML 3 ML VIAL SQ PRN ×4 (05:03→22:02)
--- NOTE | 2020-02-14 05:04 | NUR ---
rn notes: pt insisted to check her blood sugar at this time, stated she would like to eat some snack now and receive her insulin now. bs result is 161, 3 units of insulin given per sliding scale.
--- NOTE | 2020-02-14 06:49 | NUR ---
End of shift report: Pt been cooperative with using her oxygen, use it throughout the night. Helder midline remains patent and flushing well, on hl. No s/s of iv infiltration noted. Pt remains to refused using bipap at night despite providing education and encouragement. PLAN OF CARE: Not ready for discharge per Dr. Hinkle as gas exchange remains marginal, oxygen titration 88-90%. Safety precautions for fall remains engaged, call light in reach, will endorse to day rn for continuity of care.
--- NOTE | 2020-02-14 07:41 | NUR ---
MS/RN Opening note Patient received from operations supervisor 2nd shift, sleeping soundly, appears in no distress or discomfort. Oxygen via nasal cannula at 5l, saturation 90-92%. Bed in low setting, side rails X3 in upright position, call light within reach, will continue to monitor and ensure safety.
[2020-02-14 07:56] VITALS: BP 138/64
[2020-02-14 08:00] VITALS: BP 138/64
--- NOTE | 2020-02-14 08:00 | NUR ---
MS/RN IVAB Gentamicin administered as ordered, level 1.7
[2020-02-14] MEDS: ACETYLCYSTEINE 10% SOLN 400 MG/4 ML VIAL NEB SCH ×3 (08:29→23:30)
--- NOTE | 2020-02-14 08:30 | NUR ---
MS/RN S/B Dr Allen Seen by Dr Allen - discharge per internal medicine.
[2020-02-14] MEDS: methylPREDNISolone SOD SUCC 40 MG/ML VIAL IV SCH (08:58)
[2020-02-14] MEDS: LISINOPRIL (20MG) 20 MG TABLET PO SCH (08:58)
[2020-02-14] MEDS: GENTAMICIN 100 MG in IV D5W 100 ML IV SCH (08:58)
[2020-02-14] MEDS: BENZTROPINE MESYLATE (1 MG) 1 MG TABLET PO SCH ×2 (08:59→21:00)
[2020-02-14] MEDS: risperiDONE-M 0.5 MG TAB.RAPDIS PO SCH ×4 (08:59→21:42)
[2020-02-14] MEDS: DOXYCYCLINE HYCLATE (100 MG) 100 MG TABLET PO SCH ×2 (08:59→21:42)
[2020-02-14] MEDS: ISOSORBIDE DINITRATE (20MG) 20 MG TABLET PO SCH ×2 (08:59→17:23)
[2020-02-14] MEDS: AMLODIPINE BESYLATE 5 MG TABLET PO SCH (09:00)
[2020-02-14] MEDS: hydrALAZINE HCL 50 MG TABLET PO SCH ×3 (09:00→17:23)
[2020-02-14 09:12] LABS: BASOPHILS % (AUTO) 0.3 % (0.0-2.0); HEMATOCRIT 42 % (33-45); HEMOGLOBIN 11.9 g/dL (11.5-14.8); LYMPHOCYTES # (AUTO) 2.2 /CMM (0.8-4.8); LYMPHOCYTES % (AUTO) 27.6 % (20.0-44.0); MEAN CORPUSCULAR HGB CONC 28 g/dl (31.0-36.0); MEAN CORPUSCULAR VOLUME 69 fL (82-100); MONOCYTES # (AUTO) 0.9 /CMM (0.1-1.30); MONOCYTES % (AUTO) 11.9 % (2.0-12.0); NEUTROPHILS # (AUTO) 4.8 /CMM (1.8-8.9); NEUTROPHILS % (AUTO) 60.2 % (43.0-81.0); PLATELET COUNT (AUTO) 112 /CMM (150-450); RED BLOOD CELL COUNT(AUTO) 6.09 MIL/uL (4.0-5.2); WHITE BLOOD COUNT (AUTO) 7.9 K/uL (4.3-11.0)
[2020-02-14 09:23] LABS: CALCIUM, SERUM 8.3 mg/dL (8.5-10.1); CREATININE 0.6 mg/dL (0.6-1.3); MAGNESIUM 1.7 mg/dL (1.8-2.4); PHOSPHORUS 3.2 mg/dL (2.5-4.9); POTASSIUM 4.5 mmol/L (3.5-5.1)
--- NOTE | 2020-02-14 10:30 | NUR ---
MS/RN S/B Dr Howard Seen by Dr Howard - acute kidney failure resolving, continue with current plan of care.
--- NOTE | 2020-02-14 11:00 | NUR ---
MS/RN Labs Morning labs reviewed: -Mag 1.7
[2020-02-14 12:25] LABS: LYMPHOCYTES % (MANUAL) 11 % (16-48); MONOCYTES % (MANUAL) 11 % (0-11.0); NEUTROPHILS % (MANUAL) 78 (42-76)
--- NOTE | 2020-02-14 13:14 | NUR ---
MS/RN Blood sugar Blood glucose at noon 213, insulin coverage administered as per sliding scale.
--- NOTE | 2020-02-14 15:06 | NUR ---
MS/RN S/B Yoshi Lopez Seen by Yoshi Lopez - repeat chest x-ray tomorrow to evaluate pleural effusion. Discharge once cleared by pulmonary.
[2020-02-14 16:00] VITALS: BP 134/68
--- NOTE | 2020-02-14 17:00 | NUR ---
MS/RN Blood sugar Blood sugar at 5p - 235, insulin coverage administered as per sliding scale.
--- NOTE | 2020-02-14 18:40 | NUR ---
MS/RN End note Patient remains in stable condition, all medications administered as ordered, remains compliant with plan of care. May be discharged once cleared by pulmonary. Will endorse to [facility] shift lead.
--- NOTE | 2020-02-14 19:50 | NUR ---
MS RN NOTE: Received patient from AM nurse. Patient sitting on side of the bed. Patient denies pain or discomfort at this time. Patient on 5L Oxygen, nasal canula. Breathing equal and unlabored. No SOB or respiratory distress noted. Noted right upper arm midline, dressing is intact and dry, flushes well, patent, no redness, or infiltration. Safety precaution is in place, bed is in the lowest level, bed is locked, side rails x2 are up, and call light is within reach. Will continue to monitor.
[2020-02-14 20:00] VITALS: BP 108/54
[2020-02-15] MEDS: ALBUTEROL FS 2.5 MG/3 ML VIAL.NEB NEB SCH ×4 (01:30→19:30)
[2020-02-15] MEDS: GENTAMICIN 100 MG in IV D5W 100 ML IV SCH (02:54)
--- NOTE | 2020-02-15 06:00 | NUR ---
MS RN NOTE: Patient refused pictures be taken. Will endorse to oncoming nurse.
--- NOTE | 2020-02-15 06:30 | NUR ---
MS RN CLOSING NOTE: Patient in bed awake and alert. Able to make needs known. Patient shows no signs of SOB or respiratory distress. Patient breathing even and unlabored on 5L oxygen nasal canula. Safety precaution in place, bed is in the lowest level, bed is locked, alarm is on, side rails x2 are up, and call light is within reach. Will endorse to next shift.
[2020-02-15] MEDS: BLOOD SUGAR DIAGNOSTIC 1 EACH STRIP IN SCH ×4 (06:55→21:38)
[2020-02-15] MEDS: INSULIN REGULAR, HUMAN 100 UNIT/ML 3 ML VIAL SQ PRN ×3 (06:58→16:41)
--- NOTE | 2020-02-15 07:00 | NUR ---
MS RN OPENING NOTE RECEIVED PT RESTING IN BED AT THIS TIME. AOX2-3, NO SOB NOTED, NO S/S OF ANY ACUTE DISTRESS NOTED. NO C/O PAIN AT THIS TIME. RESPIRATIONS ARE EVEN AND UNLABORED WITH EQUAL RISE AND FALL IN CHEST. DANIELA MIDLINE NOTED, PATENT, INTACT AND FLUSHING WELL. PT NOTED ON O2 @5LPM VIA NC. FALL AND SAFETY PRECAUTION IN PLACE AND MAINTAINED AT ALL TIMES. BED IN LOWEST LOCKED POSITION, HOB ELEVATED, RAILS UP X 2, CALL LIGHT WITHIN REACH. WILL CONTINUE TO MONITOR
[2020-02-15] MEDS: ACETYLCYSTEINE 10% SOLN 400 MG/4 ML VIAL NEB SCH ×3 (07:35→23:30)
[2020-02-15 08:00] VITALS: BP 132/71
[2020-02-15 08:33] LABS: CALCIUM, SERUM 8.3 mg/dL (8.5-10.1); CREATININE 0.8 mg/dL (0.6-1.3); POTASSIUM 4.5 mmol/L (3.5-5.1)
[2020-02-15] MEDS: methylPREDNISolone SOD SUCC 40 MG/ML VIAL IV SCH (09:33)
[2020-02-15] MEDS: hydrALAZINE HCL 50 MG TABLET PO SCH ×3 (09:34→16:43)
[2020-02-15] MEDS: LISINOPRIL (20MG) 20 MG TABLET PO SCH (09:35)
[2020-02-15] MEDS: risperiDONE-M 0.5 MG TAB.RAPDIS PO SCH ×4 (09:35→21:34)
[2020-02-15] MEDS: AMLODIPINE BESYLATE 5 MG TABLET PO SCH (09:35)
[2020-02-15] MEDS: DOXYCYCLINE HYCLATE (100 MG) 100 MG TABLET PO SCH (09:36)
[2020-02-15] MEDS: BENZTROPINE MESYLATE (1 MG) 1 MG TABLET PO SCH ×2 (09:36→21:00)
[2020-02-15] MEDS: ISOSORBIDE DINITRATE (20MG) 20 MG TABLET PO SCH ×2 (09:36→16:44)
--- NOTE | 2020-02-15 11:30 | NUR ---
RT NOTE PT REFUSED ABG. NO SOB NOTED AT THIS TIME. RN IMMACULATE AWARE.
[2020-02-15 16:00] VITALS: BP 112/52
--- NOTE | 2020-02-15 19:30 | NUR ---
ms rn opening note received patient in bed. a/ox2-3. on oxygen 5l/min via nasal cannula. respirations are even and unlabored. no s/s sob noted. no c/o pain noted. in no apparent distress. iv access in abilio midline patent and saline locked. bed is low and locked, hob is flat, side rials up x2, call light within reach. will continue to monitor.
--- NOTE | 2020-02-15 19:34 | NUR ---
MS RN CLOSING NOTES PT AWAKE IN BED AT THIS TIME. PT REMAINED STABLE THROUGHOUT SHIFT. PT KEPT CLEAN AND DRY. ALL CARE, NEEDS, MEDICATION AND WOUND TREATMENT ADMINISTERED ANTICIPATED PER ORDER. PAIN MANAGEMENT ADMINISTERED. SAFETY PRECAUTION IN PLACE AND MAINTAINED AT ALL TIMES. BED IN LOWEST LOCKED POSITION, HOB ELEVATED, RAILS UP X 2, CALL LIGHT WITHIN REACH. WILL ENDORSE TO REDYE HAND NURSE FOR ANGEL
[2020-02-15 20:00] VITALS: BP 113/48
--- NOTE | 2020-02-15 21:40 | NUR ---
ms rn not e patient refused cogentin informed of risk and benefits. patient also refused 2200 accucheck. also informed her of risk and benefits, patient continues to refuse. will continue to monitor.
[2020-02-16] MEDS: ALBUTEROL FS 2.5 MG/3 ML VIAL.NEB NEB SCH ×4 (00:59→19:30)
[2020-02-16] MEDS: BLOOD SUGAR DIAGNOSTIC 1 EACH STRIP IN SCH ×3 (06:52→17:30)
[2020-02-16] MEDS: ACETYLCYSTEINE 10% SOLN 400 MG/4 ML VIAL NEB SCH ×2 (07:35→15:30)
--- NOTE | 2020-02-16 07:37 | NUR ---
ms rn closing note patient in bed. a/ox2-3. remains on oxygen 5l/min via nasal cannula. no resp distress. no c/o pain. no distress. iv access maintained in abilio midline patent and saline locked. bed remains low and locked, hob is flat, side rials up x2, patient sitting at edge of bed call light within reach. will endorse to next shift.
[2020-02-16 07:57] LABS: CALCIUM, SERUM 8.3 mg/dL (8.5-10.1); CREATININE 0.7 mg/dL (0.6-1.3); POTASSIUM 4.4 mmol/L (3.5-5.1)
[2020-02-16 08:00] VITALS: BP 135/72
--- NOTE | 2020-02-16 08:00 | NUR ---
RN OPENING NOTE Patient is sitting up in bed, A/O x2 with periods of confusion, noncompliant. Patient showing no signs of acute distress or SOB, saturating 95% on 2L NC. Per Dr. Chamberlain to titrate O2 to 0.5L NC to keep O2 sat 88-90%. Patient removes NC often--stills saturating 92%. Patient has no complaints of pain at this time. Bed is in lowest position, side rails x3 in upright position, call light is within reach, fall safety and aspiration precautions enforced. Will continue with plan of care.
[2020-02-16] MEDS: AMLODIPINE BESYLATE 5 MG TABLET PO SCH (08:57)
[2020-02-16] MEDS: hydrALAZINE HCL 50 MG TABLET PO SCH ×3 (08:57→17:00)
[2020-02-16] MEDS: methylPREDNISolone SOD SUCC 40 MG/ML VIAL IV SCH (08:57)
[2020-02-16] MEDS: risperiDONE-M 0.5 MG TAB.RAPDIS PO SCH ×3 (08:58→17:00)
[2020-02-16] MEDS: LISINOPRIL (20MG) 20 MG TABLET PO SCH (08:58)
[2020-02-16] MEDS: ISOSORBIDE DINITRATE (20MG) 20 MG TABLET PO SCH ×2 (08:58→17:00)
[2020-02-16] MEDS: BENZTROPINE MESYLATE (1 MG) 1 MG TABLET PO SCH (09:00)
--- NOTE | 2020-02-16 11:50 | NUR ---
RN NOTE Patient refused blood sugar check.
--- NOTE | 2020-02-16 12:00 | NUR ---
RN NOTE RT came to bedside, patient refused breathing tx and ABG.
--- NOTE | 2020-02-16 12:30 | NUR ---
RN NOTE Patient is cleared by Dr. Chamberlain and Kyle HOLLEY for DC.
[2020-02-16] MEDS ORDERED: METH4TAB17 PO (15:07)
[2020-02-16 16:00] VITALS: BP 128/61
--- NOTE | 2020-02-16 17:57 | NUR ---
RN NOTE Patient refused blood sugar check and medications at this time.
--- NOTE | 2020-02-16 19:50 | NUR ---
MS RN NOTES RECEIVED PATIENT ALERT ORIENTED X2, CALM, RESTING COMFORTABLY, NO SIGNS OF ACUTE RESPIRATORY OR CARDIAC DISTRESS NOTED. SAFETY MEASURES IN PLACE, ASPIRATION PRECAUTION EMPHASIZED. CALL LIGHT WITHIN EASY REACH. BED IN LOW LOCKED POSITION. DANIELA MIDLINE INTACT AND PATENT, DENIES ANY PAIN OR DISCOMFORT AT THIS TIME. ALL NEEDS ANTICIPATED. AWAITING FOR BIOSOLIDS MANAGEMENT TECHNICIAN, PATIENT IS FOR DISCHARGE TO [facility]. REPORT GIVEN BY AM NURSE NIC SANCHEZ.
--- NOTE | 2020-02-16 20:05 | NUR ---
RN CLOSING NOTE Patient is sitting up in bed, A/O x2 with periods of confusion, noncompliant. Patient showing no signs of acute distress or SOB, saturating 92% on 0.5L NC per Dr. Chamberlain order. Patient is medically cleared for discharge by TRUCK MANAGER. DC instructions provided but patient remains confused, co-signed DC paperwork with RN. Skin assessed and skin remains intact. Bilateral bruising on both hands present but patient refused to take photos. Report given to Khari at [facility]. All patient needs met, all due medications given. Patient refused blood sugar check and 1700 medications today. Bed is in lowest position, side rails x3 in upright position, call light is within reach, fall safety and aspiration precautions enforced. Will endorse to shift supervisor melting. Ambulance ETA is 2030.
[2020-02-16 20:10] VITALS: BP 117/50
--- NOTE | 2020-02-16 21:44 | NUR ---
RN NOTES PICKED UP BY [facility] UN[id number]. PATIENT LEFT THE UNIT IN STABLE CONDITION, DENIES ANY PAIN OR DISCOMFORT, NO SIGNS OF RESPIRATORY DISTRESS. CHARGE NURSE AND SECURITY DOOR INSTALLER AWARE OF DISCHARGE.
== END 2020-02-16 21:40 | DRG 177 ==
LOC: ER 07:07 → TELE-TD 09:50 → ICU 17:01 → MED 02-06 17:11 → TELE 02-06 17:16 → MED 02-07 08:57
PROVIDERS: ADMIT Nurse Practitioner Acute Care; ATTEND Hospitalist
PROC: 5A09557 Assistance with Respiratory Ventilation, Greater than 96 Consecutive Hours, Continuous Positive Airway Pressure (ICD-10-PCS; principal; 2020-02-02)
PROC: 0W9B3ZZ Drainage of Left Pleural Cavity, Percutaneous Approach (ICD-10-PCS; 2020-02-02)
PROC: 05HB33Z Insertion of Infusion Device into Right Basilic Vein, Percutaneous Approach (ICD-10-PCS; 2020-02-02)
DX: J15.6 Pneumonia due to other Gram-negative bacteria (principal); J96.21 Acute and chronic respiratory failure with hypoxia; I50.33 Acute on chronic diastolic (congestive) heart failure; N17.0 Acute kidney failure with tubular necrosis; J96.22 Acute and chronic respiratory failure with hypercapnia; G93.41 Metabolic encephalopathy; J44.1 Chronic obstructive pulmonary disease with (acute) exacerbation; J44.0 Chronic obstructive pulmonary disease with (acute) lower respiratory infection; E44.0 Moderate protein-calorie malnutrition; D68.59 Other primary thrombophilia; N39.0 Urinary tract infection, site not specified; J90 Pleural effusion, not elsewhere classified; J98.11 Atelectasis; E11.42 Type 2 diabetes mellitus with diabetic polyneuropathy; Z79.51 Long term (current) use of inhaled steroids; Z79.899 Other long term (current) drug therapy; I11.0 Hypertensive heart disease with heart failure; Z83.3 Family history of diabetes mellitus; Z82.49 Family history of ischemic heart disease and other diseases of the circulatory system; F17.200 Nicotine dependence, unspecified, uncomplicated; E87.5 Hyperkalemia; E11.65 Type 2 diabetes mellitus with hyperglycemia; D69.6 Thrombocytopenia, unspecified; E66.9 Obesity, unspecified; Z68.32 Body mass index [BMI] 32.0-32.9, adult; Z74.09 Other reduced mobility; D75.1 Secondary polycythemia; B96.20 Unspecified Escherichia coli [E. coli] as the cause of diseases classified elsewhere; G31.84 Mild cognitive impairment of uncertain or unknown etiology; F25.9 Schizoaffective disorder, unspecified; E86.0 Dehydration
CPT/HCPCS: 36415; 36600; 71045-TC; 80048-TC; 80053-TC; 80061-TC; 80076-TC; 80170-TC; 80202-TC; 81000-TC; 82803-TC; 82962-TC; 83605-TC; 83735-TC; 83880; 84100-TC; 84155-TC; 84439-TC; 84443-TC; 84484-TC; 85025-TC; 85652-TC; 85730-TC; 87040-TC; 87070-TC; 87075-TC; 87081-TC; 87086-TC; 87102-TC; 87186-TC; 88108-TC; 88305-TC; 88312-TC; 89051-TC; 93307-TC; 93970-TC; 94760-TC; 94762-TC; 94799-TC; 97116-TC; 97530-TC; A4624; C9113; G0378; J0692; J1580; J1650; J1815; J1940; J1956; J2543; J2920; J2930; J3370; J3475; J3490; J7030; J7040; J7050; J7060; U0003-CS

== ENCOUNTER 2020-12-29 18:55 | Inpatient (IN) | payer MEDICARE, OTHER ==
[~2020-12-29] VITALS: Ht 165.1 cm; Wt 61.2 kg
[~2020-12-29 18:55] MED LIST changes: -AMLO10TA7 PO; +DOCU-141 PO; -HYDR100T27 PO; -LEVO500T23 PO; +METH4TAB17 PO; -METO25TA20 PO; -RISP0.2515 PO; +RISP3TAB61 PO; +SENN-175 PO
--- NOTE | 2020-12-29 19:19 | NUR ---
PATIENT CAME TO THE ER BED 11 BIBEMS FROM [facility] C/O BLE EDEMA AND SOB. PATIENT IS A CHRONIC SMOKER WITH COPD. PATIENT IS 80% O2 SATURATION ON ROOM AIR. PATIENT IS PLACED ON N/C 4L. PATIENT IS ALERT AND ORIENTED x3. PATIENT IS CONNECTED TO THE CUSHION MAT MAKER. WILL CONTINUE TO MONITOR PATIENT CLOSELY.
--- NOTE | 2020-12-29 19:22 | NUR ---
PATIENT IS PLACED ON 4L OF N/C WITH 94% OXYGEN SATURATION
--- NOTE | 2020-12-29 19:23 | NUR ---
BLOOD COLLECTED AND SENT TO THE LAB
[2020-12-29 19:37] LABS: BASOPHILS # (AUTO) 0.1 K/uL (0.0-0.2); BASOPHILS % (AUTO) 0.6 % (0.0-2.0); EOSINOPHILS % (AUTO) 0.2 % (0.0-6.0); HEMATOCRIT 48 % (33-45); HEMOGLOBIN 14.4 g/dL (11.5-14.8); LYMPHOCYTES # (AUTO) 0.8 K/uL (0.8-4.8); MEAN CORPUSCULAR HGB CONC 30 g/dl (31.0-36.0); MEAN CORPUSCULAR VOLUME 82 fL (82-100); MONOCYTES # (AUTO) 0.8 K/uL (0.1-1.30); NEUTROPHILS # (AUTO) 6.7 K/uL (1.8-8.9); NEUTROPHILS % (AUTO) 79.2 % (43.0-81.0); PLATELET COUNT (AUTO) 172 K/uL (150-450); RED BLOOD CELL COUNT(AUTO) 5.83 MIL/uL (4.0-5.2); WHITE BLOOD COUNT (AUTO) 8.5 K/uL (4.3-11.0)
--- NOTE | 2020-12-29 19:39 | NUR ---
XRAY AT BEDSIDE
[2020-12-29 20:07] LABS: CARBON DIOXIDE 32 mmol/L (21-32); CHLORIDE 95 mmol/L (98-107); CREATININE 0.9 mg/dL (0.6-1.3); GLUCOSE 245 mg/dL (74-106); POTASSIUM 4.8 mmol/L (3.5-5.1); SODIUM SERUM 133 mmol/L (136-145); UREA NITROGEN, BLOOD 18 mg/dL (7-18)
--- NOTE | 2020-12-29 20:12 | NUR ---
COVID SWAB COLLECTED AND SENT TO THE LAB.
--- NOTE | 2020-12-29 20:13 | NUR ---
RT AT BEDSIDE FOR ABG
[2020-12-29 20:19] LABS: ALANINE AMINOTRANSFERASE 10 U/L (12-78); ALBUMIN 3.2 g/dL (3.4-5.0); ALKALINE PHOSPHATASE 63 U/L (46-116); ASPARTATE AMINOTRANSFERASE 14 U/L (15-37); BILIRUBIN,DIRECT 0.1 mg/dL (0.0-0.2); BILIRUBIN,TOTAL 0.4 mg/dL (0.2-1.0); TOTAL PROTEIN, SERUM 6.4 g/dL (6.4-8.2)
[2020-12-29 20:21] LABS: ABG BASE EXCESS 0.1 mmol/L; ABG OXYGEN SATURATION 90.1 % (92.0-98.5); ABG PCO2 81.2 mmHg (35.0-45.0); ABG PH 7.198 (7.350-7.450); ABG PO2 64.8 mmHg (75.0-100.0); AaDO2 97.7 mmHg; COHb 13.7 % (0.5-1.5); MetHb 0.3 % (0.0-1.5); O2Hb 77.5 % (94.0-97.0); SITE, ABG Right Radial; VENT MODE, BG Nasal Cannula
[2020-12-29] MEDS ORDERED: LEVOFLOXACIN 750 MG /D5W 150ML 150 ML IV ONE ×2 (20:28→20:30)
[2020-12-29] MEDS ORDERED: methylPREDNISolone SOD SUCC 125 MG/2ML VIAL ONE (20:28)
[2020-12-29] MEDS ORDERED: methylPREDNISolone SOD SUCC 125 MG/2ML VIAL IV ONE (20:30)
[2020-12-29] MEDS ORDERED: MISCELLANEOUS MED 1 EA EA XX ONE (20:30)
[2020-12-29] MEDS ORDERED: ALBUTEROL FS 2.5 MG/3 ML VIAL.NEB NEB ONE (20:30)
[2020-12-29] MEDS ORDERED: IPRATROPIUM NEB FS 0.5 MG/2.5 ML AMPUL.NEB NEB ONE (20:30)
--- NOTE | 2020-12-29 20:43 | NUR ---
RT NOTE Pt rec'd on 4LNC. Pt lethargic and still able to follow commands. ABG taken and critical results given to MD. Pt placed on Bipap on noted settings as charted. Post bipap abg to be taken in 1 hour. Alarms are set and audible. Ambu bag bedside. Bipap plugged into red outlet. Will continue to monitor closely. Addendum: 12/29/20 at 2045 by CLINTON SOLORZANO RT Amended: Links added.
--- NOTE | 2020-12-29 20:44 | NUR ---
PATIENT IS PLACED ON A BIPAP WITH SETTINGS OF 20IPAP 5EPAP 18 RR 30% FIO2
--- NOTE | 2020-12-29 20:48 | NUR ---
JODY ALLEN DNP PAGED FOR ADMISSION.
--- NOTE | 2020-12-29 22:20 | NUR ---
RT NOTE PT AWAKE AND ALERT ON BIPAP. PT REFUSING ABG AND IS NON COMPLIANT. MD AWARE.
[2020-12-30] MEDS ORDERED: ONDANSETRON HCL/PF 4 MG/2 ML VIAL IVP PRN
[2020-12-30] MEDS ORDERED: ACETAMINOPHEN 325 MG TABLET PO PRN
[2020-12-30] MEDS ORDERED: MAGNESIUM HYDROXIDE 30 ML UDC PO PRN
[2020-12-30] MEDS ORDERED: Z GUARD REMEDY 2 OZ OINT TP PRN
[2020-12-30] MEDS ORDERED: MAG HYDROX/AL HYDROX/SIMETH 30 ML UDC PO PRN
[2020-12-30] MEDS ORDERED: ZOLPIDEM TARTRATE 5 MG TABLET PO PRN
[2020-12-30] MEDS ORDERED: ENOXAPARIN SODIUM 40 MG/0.4 ML DISP.SYRIN SQ ONE ×2 (01:00→02:04)
[2020-12-30] MEDS ORDERED: methylPREDNISolone SOD SUCC 40 MG/ML VIAL ONE ×2 (02:04→13:54)
--- NOTE | 2020-12-30 04:46 | NUR ---
JODY ALLEN DNP AT BEDSIDE TO RE-EVAL PT.
--- NOTE | 2020-12-30 04:51 | NUR ---
RT PAGED FOR REPEAT ABG.
[2020-12-30] MEDS ORDERED: DEXTROSE 50%-WATER 50 ML DISP.SYRIN IV PRN (05:00)
[2020-12-30 05:01] LABS: CALCIUM, SERUM 7.9 mg/dL (8.5-10.1); CREATININE 0.7 mg/dL (0.6-1.3); MAGNESIUM 1.8 mg/dL (1.8-2.4); PHOSPHORUS 4.9 mg/dL (2.5-4.9); POTASSIUM 4.8 mmol/L (3.5-5.1)
--- NOTE | 2020-12-30 05:03 | NUR ---
RT AT [facility] FOR ABG.
[2020-12-30 05:21] LABS: BASOPHILS % (AUTO) 0.2 % (0.0-2.0); HEMATOCRIT 49 % (33-45); LYMPHOCYTES # (AUTO) 0.2 K/uL (0.8-4.8); LYMPHOCYTES % (AUTO) 4.5 % (20.0-44.0); MEAN CORPUSCULAR HGB CONC 30 g/dl (31.0-36.0); MEAN CORPUSCULAR VOLUME 82 fL (82-100); MONOCYTES # (AUTO) 0.1 K/uL (0.1-1.30); MONOCYTES % (AUTO) 1.6 % (2.0-12.0); NEUTROPHILS # (AUTO) 4.2 K/uL (1.8-8.9); NEUTROPHILS % (AUTO) 93.7 % (43.0-81.0); PLATELET COUNT (AUTO) 149 K/uL (150-450); RED BLOOD CELL COUNT(AUTO) 6.04 MIL/uL (4.0-5.2); WHITE BLOOD COUNT (AUTO) 4.5 K/uL (4.3-11.0)
[2020-12-30] MEDS ORDERED: methylPREDNISolone SOD SUCC 125 MG/2ML VIAL ONE (05:27)
[2020-12-30] MEDS: methylPREDNISolone SOD SUCC 40 MG/ML VIAL IV SCH ×5 (05:34→23:31)
[2020-12-30 05:45] LABS: ABG BASE EXCESS 1.8 mmol/L; ABG OXYGEN SATURATION 94.4 % (92.0-98.5); ABG PCO2 69.2 mmHg (35.0-45.0); ABG PH 7.271 (7.350-7.450); ABG PO2 78.5 mmHg (75.0-100.0); AaDO2 90.6 mmHg; COHb 8.4 % (0.5-1.5); MetHb 0.4 % (0.0-1.5); O2Hb 86.1 % (94.0-97.0); SITE, ABG Right Radial; VENT MODE, BG BIPAP 20/5 RR18 35%
[2020-12-30] MEDS: BLOOD SUGAR DIAGNOSTIC 1 EACH STRIP IN SCH ×4 (06:00→23:49)
[2020-12-30 06:02] LABS: BAND % (MANUAL) 4 % (0.0-5.0); BASOPHILS % (MANUAL) 0 % (0.0-2.0); EOSINOPHILS % (MANUAL) 0 % (0-4); LYMPHOCYTES % (MANUAL) 2 % (16-48); MONOCYTES % (MANUAL) 4 % (0-11.0); NEUTROPHILS % (MANUAL) 90 (42-76)
--- NOTE | 2020-12-30 07:28 | NUR ---
REPORT GIVEN TO BRENDAN RN FOR ANGEL.
[2020-12-30] MEDS: risperiDONE 1 MG TABLET PO SCH (09:00)
[2020-12-30] MEDS: FUROSEMIDE 40 MG TABLET PO SCH (09:00)
--- NOTE | 2020-12-30 09:28 | NUR ---
RT PT AWAKE, TAKEN OFF BIPAP AND PLACED ON 3LPM NC. BRENDAN RN NOTIFIED AND AWARE. SpO2 97%, HR 95. WILL CONTINUE TO MONITOR FOR ANY CHANGE OF CONDITION. Addendum: 12/30/20 at 0945 by SANJUANITA JI RT Amended: Links added.
[2020-12-30] MEDS ORDERED: HYDROCORTISONE SOD SUCCINATE 100 MG/2 ML VIAL ONE ×2 (13:55→17:48)
[2020-12-30] MEDS: INSULIN REGULAR, HUMAN 100 UNIT/ML 3 ML VIAL SQ PRN ×3 (14:08→23:50)
[2020-12-30] MEDS ORDERED: INSULIN REGULAR, HUMAN 100 UNIT/ML 10 ML VIAL ONE ×2 (14:09→17:46)
--- NOTE | 2020-12-30 20:07 | NUR ---
SPOKE TO JODY ALLEN DNP REGARDING PT OFF BIPAP SINCE 0830AM AND PT HAS BEEN ON O2@4L/NC, 02 SAT 98% @ THIS TIME. PER JODY ALLEN DNP OK TO DOWNGRADE PT TO BRINDA STATUS.
--- NOTE | 2020-12-30 20:14 | NUR ---
NURSING SLAB CONDITIONER SUPERVISOR CALLED FOR BRINDA BED.
--- NOTE | 2020-12-30 20:30 | NUR ---
BRINDA 120-1
--- NOTE | 2020-12-30 20:42 | NUR ---
RN NOTES RECEIVED ER ADMISSION REPORT FROM NIC AVITIA. ALL PERTINENT ADMISSION INFO REGARDING PT NOTED. WILL WAIT FOR PT TO BE TRANSFERRED TO UNIT AND ADDRESS NEEDS ACCORDINGLY. CLAIMS SORTER MADE AWARE.
--- NOTE | 2020-12-30 20:42 | NUR ---
REPORT GIVEN TO REJI LUCERO FOR ANGEL.
--- NOTE | 2020-12-30 20:58 | NUR ---
RN NOTES RECEIVED PT FROM ER VIA ALLEY ACCOMPANIED BY 2 ER STAFFS AND TRANSFERRED TO BED VIA 2 PERSON ASSIST. PT IS A/OX2-3; PT ON 4L OF O2 VIA NC WITH RESPIRATIONS EVEN AND UNLABORED. COMPREHENSIVE PHYSICAL ASSESSMENT AND PATIENT CARE DONE. CALL LIGHT WITHIN REACH, SAFETY MEASURES AND ISOLATION PRECAUTION IN PLACE, WILL CONTINUE MONITOR AND ASSESS THROUGHOUT THE SHIFT. WILL CARRY OUT MD ORDERS ACCORDINGLY. SECURITY CONSULTANT MADE AWARE.
[2020-12-30 21:00] VITALS: BP 132/65
--- NOTE | 2020-12-30 21:06 | NUR ---
Patient taken up to assigned room for navneet. via acls protocols
[2020-12-30] MEDS: ENOXAPARIN SODIUM 40 MG/0.4 ML DISP.SYRIN SQ SCH (21:36)
[2020-12-30] MEDS: DOCUSATE SODIUM 100 MG CAPSULE PO SCH (21:43)
[2020-12-30] MEDS: SENNOSIDES 8.6 MG TABLET PO SCH (21:43)
--- NOTE | 2020-12-30 23:50 | NUR ---
RN NOTES ACCU CHECK TAKEN; 240 MG/DL; PT REFUSED INSULIN DOSE PER SLIDING SCALE. OUTBOUND SALES EXECUTIVE MADE AWARE.
[2020-12-31] VITALS: BP 141/73
[2020-12-31 04:00] VITALS: BP 111/54
[2020-12-31] MEDS: methylPREDNISolone SOD SUCC 40 MG/ML VIAL IV SCH ×3 (05:18→18:00)
[2020-12-31] MEDS: BLOOD SUGAR DIAGNOSTIC 1 EACH STRIP IN SCH ×3 (05:25→18:00)
[2020-12-31] MEDS: INSULIN REGULAR, HUMAN 100 UNIT/ML 3 ML VIAL SQ PRN (05:28)
--- NOTE | 2020-12-31 07:00 | NUR ---
RN NOTES PATIENT REMAINS IN ROOM IN NO SIGNS OF RESPIRATORY DISTRESS, PATIENT STILL ON 4L OF 02 VIA NC; TOLERATING WELL SATURATING @ >95% SP02. SAFETY MEASURES IMPLEMENTED, BED IN LOWEST POSITION, LOCKED, SIDE RAILS UP, CALL LIGHT WITHIN REACH. ALL NEEDS AND ORDERS ADDRESSED DURING THE SHIFT. IV ACCESS MAINTAINED INTACT, SECURED AND FLUSHING WELL. ALL DUE MEDS GIVEN ORDERED & SCHEDULED ; PATIENT TOLERATED WELL. PATIENT KEPT CLEAN AND COMFORTABLE WITHIN THE SHIFT. PATIENT ENDORSED TO INCOMING SHIFT RN WITH STABLE VITAL SIGN AND FOR CONTINUITY OF CARE. Addendum: 12/31/20 at 0712 by DAONIS FARNSWORTH RN ADDENDUM PT PULLED OUT HER LINE; ATTEMPTED TO PLACE NEW IV LINE/ACCESS; UNSUCCESSFUL. WILL ENDORSE T0 AM SHIFT RN AND CROP FARM WORKERS.
--- NOTE | 2020-12-31 07:15 | NUR ---
RN OPENING NOTES RECEIVED PT IN BED, AWAKE. A/O X2-3. ON 4L OF O2 VIA NC, SATURATING @97%. NO SOB OR ANY S/S OF RESPIRATORY DISTRESS NOTED. IV ACCESS PULLED OUT. WILL ATTEMPT TO INSERT NEW LINE. AMBULATORY. SKIN IS INTACT. SAFETY MEASURES IMPLEMENTED. CALL LIGHT WITHIN REACH. BED LOCKED AND IN LOWEST POSITION WITH SIDE RAILS UP X2.
[2020-12-31 08:00] VITALS: BP 121/95
[2020-12-31] MEDS: FUROSEMIDE 40 MG TABLET PO SCH (08:38)
[2020-12-31] MEDS: risperiDONE 1 MG TABLET PO SCH (08:39)
[2020-12-31 12:00] VITALS: BP 138/73
--- NOTE | 2020-12-31 12:00 | NUR ---
RN NOTES BS OF 251 REFUSED INSULIN COVERAGE. RISK AND BENEFITS EXPLAINED, STILL REFUSED. CN AWARE.
--- NOTE | 2020-12-31 12:59 | NUR ---
RN NOTES IV REINSERTION ATTEMPTED 3X. MADE AWARE. ORDERED MIDLINE. NURSING EMBEDDED SOFTWARE DEVELOPMENT ENGINEER AWARE. DANIELA MIDLINE INSERTED ASEPTICALLY. INTACT, PATENT AND FLUSHING WELL.
--- NOTE | 2020-12-31 13:30 | NUR ---
RN NOTES PT PULLED OUT MIDLINE. REFUSES REINSERTION DESPITE EDUCATION. MADE AWARE.
[2020-12-31 16:00] VITALS: BP 130/78
--- NOTE | 2020-12-31 18:00 | NUR ---
RN NOTES REFUSED ACCU CHECK. RISK AND BENEFITS EXPLAINED, STILL REFUSED. CN AWARE.
--- NOTE | 2020-12-31 18:44 | NUR ---
RN CLOSING NOTES NO SIGNIFICANT CHANGES THROUGHOUT THE SHIFT. NO SOB OR ANY DISTRESS. NO PAIN REPORTED AT THIS TIME. REFUSED IV INSERTION, MD AWARE. ALL DUE MEDS GIVEN. NEEDS ATTENDED. KEPT CLEAN AND COMFORTABLE. SAFETY MEASURES IN PLACE. WILL ENDORSE TO NIGHT RN FOR ANGEL.
[2020-12-31 18:49] LABS: CREATININE 0.9 mg/dL (0.6-1.3); POTASSIUM 4.4 mmol/L (3.5-5.1)
[2020-12-31 19:01] LABS: BASOPHILS % (AUTO) 0.1 % (0.0-2.0); HEMOGLOBIN 14.9 g/dL (11.5-14.8); WHITE BLOOD COUNT (AUTO) 7.8 K/uL (4.3-11.0)
[2020-12-31 19:05] LABS: HEMATOCRIT 50 % (33-45); LYMPHOCYTES # (AUTO) 0.6 K/uL (0.8-4.8); LYMPHOCYTES % (AUTO) 7.9 % (20.0-44.0); MEAN CORPUSCULAR HGB CONC 30 g/dl (31.0-36.0); MEAN CORPUSCULAR VOLUME 82 fL (82-100); NEUTROPHILS # (AUTO) 6.2 K/uL (1.8-8.9); PLATELET COUNT (AUTO) 149 K/uL (150-450); RED BLOOD CELL COUNT(AUTO) 6.13 MIL/uL (4.0-5.2)
--- NOTE | 2020-12-31 19:20 | NUR ---
RN NOTES PT NON COMPLAINT AND REFUSED MOST MEDS DURING THE AM SHIFT, REMOVES IV ACCESS/LINES, REMOVES TELE BOX, AM SHIFT HOSPITALIST WELL INFORMED ABOUT THIS ISSUES. CIRILO VOSS FOR THE FREIGHT REPRESENTATIVE INFORMED ABOUT THE SAME AND ALSO INFORMED ABOUT CRITICAL LAB : BICARB @41. PER CIRILO VOSS NO FURTHER ORDER AT THIS MOMENT; AND CONTINUE TO MONITOR FOR PT'S STATUS. RN ACKNOWLEDGED. COMMERCIAL REAL ESTATE MANAGER MADE AWARE.
--- NOTE | 2020-12-31 19:30 | NUR ---
RN OPENING NOTES: RECEIVED PT A/OX2-3 IN BED RESTING COMFORTABLY. PATIENT IN NO S/SX OF ACUTE DISTRESS AT THIS TIME. NO SOB NOTED. PATIENT'S BREATHING IS EVEN AND UNLABORED. PATIENT IS ON 4L OF OXYGEN VIA NC; TOLERATING WELL 02 SAT >93% AT THE TIME OF RECEIVED. PT OFF FROM TELE MONITOR; PT REFUSES. PATIENT ON CARDIAC DIET; TOLERATES WELL. NGT ON LOW INTERMITTENT SUCTION NO OUTPUT. NO NOTED IV SITE/ ACCESS UPON RECEIVED; PT REFUSES PER AM SHIFT. SAFETY MEASURES HAVE BEEN PROVIDED AND IMPLEMENTED. PATIENT BED ALARM IS ON. HEAD OF BED ELEVATED. BED IS LOCKED, IN LOWEST POSITION AND SIDE RAILS UP. CALL LIGHT WITHIN REACH OF THE PATIENT. APPLICABLE ISOLATION PRECAUTIONS IN PLACE. WILL CONTINUE TO MONITOR AND REASSESS FOR ANY CHANGES AND WILL CARRY OUT ANY ONGOING AND ACTIVE MD ORDER.
[2020-12-31 20:00] VITALS: BP 135/65
[2020-12-31 21:04] LABS: LYMPHOCYTES % (MANUAL) 8 % (16-48); MONOCYTES % (MANUAL) 12 % (0-11.0); NEUTROPHILS % (MANUAL) 80 (42-76)
[2020-12-31] MEDS: SENNOSIDES 8.6 MG TABLET PO SCH (21:11)
[2020-12-31] MEDS: DOCUSATE SODIUM 100 MG CAPSULE PO SCH (21:11)
[2020-12-31] MEDS: ENOXAPARIN SODIUM 40 MG/0.4 ML DISP.SYRIN SQ SCH (21:12)
--- NOTE | 2020-12-31 21:35 | NUR ---
RN NOTES NOTED PT'S TEMP IS AT 100@2130 PRN MEDICATION GIVEN AND COOLING MEASURES RENDERED. PRIMARY SCHOOL TEACHER MADE AWARE. WILL CONTINUE TO MONITOR AND ASSESS THROUGHOUT THE SHIFT.
--- NOTE | 2020-12-31 23:00 | NUR ---
RN NOTES NO NOTED CHANGES IN PATIENT CONDITION AT THIS TIME; PATIENT VITALS STABLE, NO SIGNS OF ACUTE RESPIRATORY DISTRESS. TRAVEL ACCOMMODATIONS RATER MADE AWARE. WILL CONTINUE TO MONITOR AND REASSESS FOR ANY CHANGES THROUGHOUT THE SHIFT.
[2021-01-01] VITALS: BP 140/73
[2021-01-01] MEDS: BLOOD SUGAR DIAGNOSTIC 1 EACH STRIP IN SCH ×4 (00:14→18:00)
[2021-01-01] MEDS: INSULIN REGULAR, HUMAN 100 UNIT/ML 3 ML VIAL SQ PRN ×2 (00:14→05:22)
--- NOTE | 2021-01-01 00:18 | NUR ---
RN NOTES SCHEDULED SOLU MEDROL FOR 0000; NOT GIVEN, PT HAS NO IV ACCESS/LINE; REFUSES FOR IV LINE. CLINICAL REVIEW NURSE WELL AWARE AND CRUSHER DRY GROUND MICA ONCLILLIE VOSS.
[2021-01-01 04:00] VITALS: BP 122/68
--- NOTE | 2021-01-01 04:00 | NUR ---
RN NOTES NO NOTED CHANGES IN PATIENT CONDITION AT THIS TIME; PATIENT VITALS STABLE, NO SIGNS OF ACUTE RESPIRATORY DISTRESS. AM PATIENT CARE RENDERED. FIRE PILOT MADE AWARE. WILL CONTINUE TO MONITOR AND REASSESS FOR ANY CHANGES THROUGHOUT THE SHIFT.
--- NOTE | 2021-01-01 05:25 | NUR ---
RN NOTES SCHEDULED SOLU MEDROL FOR 0600; NOT GIVEN, PT HAS NO IV ACCESS/LINE; REFUSES FOR IV LINE. LOFT WORKER HEAD WELL AWARE AND MILIEU COUNSELOR ONCLILLIE VOSS.
--- NOTE | 2021-01-01 05:30 | NUR ---
RN NOTES COMMUNICATED WITH CIRILO VOSS AND PROVIDED UPDATES ABOUT PT; SECURED ORDER FORM CIRILO VOSS ; OK TO TRANSFER PT FROM BRINDA STATUS TO MED SURG. SAUSAGE STUFFER MADE AWARE. WILL CARRY OUT ORDER.
[2021-01-01] MEDS: methylPREDNISolone SOD SUCC 40 MG/ML VIAL IV SCH ×3 (05:39→21:55)
--- NOTE | 2021-01-01 07:02 | NUR ---
RN NOTES PATIENT REMAINS IN ROOM IN NO SIGNS OF RESPIRATORY DISTRESS, PATIENT STILL ON 4L OF 02 VIA NC; TOLERATING WELL SATURATING @ >95% SP02. SAFETY MEASURES IMPLEMENTED, BED IN LOWEST POSITION, LOCKED, SIDE RAILS UP, CALL LIGHT WITHIN REACH. ALL NEEDS AND ORDERS ADDRESSED DURING THE SHIFT. NO IV LINE.MEDS GIVEN ORDERED & SCHEDULED ; PATIENT TOLERATED WELL. PATIENT KEPT CLEAN AND COMFORTABLE WITHIN THE SHIFT. PATIENT ENDORSED TO INCOMING SHIFT RN WITH STABLE VITAL SIGN AND FOR CONTINUITY OF CARE.
--- NOTE | 2021-01-01 07:20 | NUR ---
RN OPENING NOTES RECEIVED PT IN BED, AWAKE. A/O X2-3. ON 4L OF O2 VIA NC, SATURATING @95%. NO SOB OR ANY S/S OF RESPIRATORY DISTRESS NOTED. NO PAIN REPORTED THIS TIME. AMBULATORY. SKIN IS INTACT. SAFETY MEASURES IMPLEMENTED. CALL LIGHT WITHIN REACH. BED LOCKED AND IN LOWEST POSITION WITH SIDE RAILS UP X2. WILL CONTINUE TO MONITOR.
[2021-01-01 08:00] VITALS: BP 133/66
[2021-01-01] MEDS: FUROSEMIDE 40 MG TABLET PO SCH (08:19)
[2021-01-01] MEDS: risperiDONE 1 MG TABLET PO SCH (08:20)
[2021-01-01 12:00] VITALS: BP 140/70
--- NOTE | 2021-01-01 12:00 | NUR ---
RN NOTES PT REFUSED INSULIN COVERAGE DESPITE EDUCATION.
[2021-01-01 16:00] VITALS: BP 137/88
--- NOTE | 2021-01-01 18:00 | NUR ---
RN NOTES PT REFUSED ACCU CHECK DESPITE EDUCATION.
--- NOTE | 2021-01-01 19:02 | NUR ---
RN CLOSING NOTES NO SIGNIFICANT CHANGES THROUGHOUT THE SHIFT. NO SOB OR ANY DISTRESS. NO PAIN REPORTED AT THIS TIME. ALL DUE MEDS GIVEN. NEEDS ATTENDED. KEPT CLEAN AND COMFORTABLE. SAFETY MEASURES IN PLACE. WILL ENDORSE TO NIGHT RN FOR ANGEL.
--- NOTE | 2021-01-01 19:30 | NUR ---
RN NOTE RECEIVED PT IN BED, AWAKE, ALERT. NOTED WITH BODY TWITCHING, MORE ON FACIAL. PT DENIES ANY PAIN. PT ABLE TO TALK, 1 TO 3 WORDS AT A TIME. NO DISTRESS NOTED. WILL CONTINUE TO MONITOR. ALL SAFETY MEASURES IN PLACE. BED ALARM ON, CALL LIGHT WITHIN REACH,
[2021-01-01 20:00] VITALS: BP 145/91
--- NOTE | 2021-01-01 20:38 | NUR ---
RN NOTE NOTIFIED MOLD SANDER PHYSICIST NUCLEAR ALEJANDRO REGARDING PT TWITCHING. NO ORDER AT THIS TIME. ABLE TO INSERT IV ON RHAND 22G. WITH GOOD BLOOD RETURN. FLUSHES WELL. CHECKED FSBS AT 137. WILL CONTINUE TO MONITOR.
[2021-01-01] MEDS: ENOXAPARIN SODIUM 40 MG/0.4 ML DISP.SYRIN SQ SCH (21:57)
--- NOTE | 2021-01-01 22:25 | NUR ---
RN NOTE PT STILL NOTED WITH TWITCHING, PT RESPONDING VERBALLY, UNCOOPERATIVE. UNABLE TO GIVE DUE PO MED COLACE AND SENNA. ENGINEER GEOPHYSICAL LABORATORY ALEJANDRO, MADE AWARE. ORDERED STAT BMP.
[2021-01-01] MEDS: SENNOSIDES 8.6 MG TABLET PO SCH (22:30)
[2021-01-01] MEDS: DOCUSATE SODIUM 100 MG CAPSULE PO SCH (22:30)
[2021-01-01 23:55] LABS: CREATININE 0.8 mg/dL (0.6-1.3); POTASSIUM 3.6 mmol/L (3.5-5.1)
--- NOTE | 2021-01-02 00:10 | NUR ---
RN NOTE BMP RESULT RELAYED TO KISHAN ALLEN, CARBON DIOXIDE AT 43. PT SLEEPING, AROUSES TO TOUCH STIMULI. NO TWITCHING AT THIS TIME. WILL CONTINUE TO MONITOR.
[2021-01-02] MEDS: BLOOD SUGAR DIAGNOSTIC 1 EACH STRIP IN SCH ×5 (00:32→23:49)
[2021-01-02] MEDS: INSULIN REGULAR, HUMAN 100 UNIT/ML 3 ML VIAL SQ PRN ×3 (00:34→23:49)
--- NOTE | 2021-01-02 00:37 | NUR ---
RN NOTE FSBS 176. INSULIN NOT GIVEN, PT BEING UNCOOPERATIVE.
[2021-01-02 04:00] VITALS: BP 141/81
--- NOTE | 2021-01-02 07:10 | NUR ---
RN NOTE PT SLEEPING, AROUSES EASILY, NOT IN ANY DISTRESS, NO TWITCHING NOTED AT THIS TIME. CONTINUE ON 4L O2. TOLERATING. PT WITH FSBS OF 234, REFUSED TO GET INSULIN. EXPLAINED RISKS AND BENEFITS. ENDORSED TO NEXT SHIFT NURSE.
--- NOTE | 2021-01-02 08:00 | NUR ---
RN OPENING NOTE PT IS AWAKE IN BED RESTING. ON 4L NC WITH NO SOB OR RESPIRATORY DISTRESS PRESENT. PT IS A/O X 2 AND ANXIOUS. TREMORS PRESENT AND MD AWAKE. NO CORE RESCUER PRESENT. NO EDEMA PRESENT. BED ALARM ON. NO SKIN ISSUES PRESENT. ON CARDIAC DIET. IV PRESENT ON R HAND 22G. LABS AND ORDERS REVIEWED. SAFETY MEASURES IN PLACE. SIDE RAILS RAISED. BED LOWERED. CALL LIGHT WITHIN REACH. WILL CONTINUE TO MONITOR.
[2021-01-02] MEDS: FUROSEMIDE 40 MG TABLET PO SCH ×2 (08:41→08:52)
[2021-01-02] MEDS: risperiDONE 1 MG TABLET PO SCH ×3 (08:41→10:07)
[2021-01-02] MEDS: methylPREDNISolone SOD SUCC 40 MG/ML VIAL IV SCH ×3 (08:41→21:54)
--- NOTE | 2021-01-02 08:53 | NUR ---
RN NOTE PT REFUSED ALL MORNING MEDICATIONS. ATTEMPTED TO CONVINCE PT OF RISKS AND BENEFITS OF MEDICATIONS AND STILL REFUSED. NOTIFIED MD. MEDICATIONS WASTED IN APPROPRIATE BINS. TREMORS PRESENT. WILL CONTINUE TO MONITOR.
--- NOTE | 2021-01-02 10:00 | NUR ---
RN NOTE PT AGREEABLE TO TAKE RISPERIDONE PO. REFUSED ALL OTHER MEDICATIONS. WILL CONTINUE TO MONITOR.
--- NOTE | 2021-01-02 10:05 | NUR ---
RN NOTE RISPERIDONE PULLED SECOND TIME FROM [employer]. FIRST DOSE OF RISPERIDONE SPIT OUT BY PATIENT. NOTIFIED PHARMACY. SECOND DOSE TO BE ADMINISTERED. WILL CONTINUE TO MONITOR.
[2021-01-02] MEDS ORDERED: ENOXAPARIN SODIUM 40 MG/0.4 ML DISP.SYRIN SQ SCH (10:30)
[2021-01-02] MEDS: LEVOFLOXACIN (250MG) 250 MG TABLET PO SCH (10:52)
[2021-01-02 11:38] LABS: ABG BASE EXCESS 17.3 mmol/L; ABG OXYGEN SATURATION 60.2 % (92.0-98.5); ABG PCO2 67.1 mmHg (35.0-45.0); ABG PH 7.452 (7.350-7.450); ABG PO2 30.3 mmHg (75.0-100.0); AaDO2 39.1 mmHg; COHb 1.7 % (0.5-1.5); MetHb 0.5 % (0.0-1.5); O2Hb 58.9 % (94.0-97.0); SITE, ABG Right Brachial; VENT MODE, BG NASAL CANNULA
[2021-01-02 11:38] LABS: ABG BASE EXCESS 16.2 mmol/L; ABG PCO2 80.8 mmHg (35.0-45.0); ABG PH 7.376 (7.350-7.450); ABG PO2 57.8 mmHg (75.0-100.0); AaDO2 75.8 mmHg; COHb 1.8 % (0.5-1.5); MetHb 0.3 % (0.0-1.5); O2Hb 88.1 % (94.0-97.0); SITE, ABG Left Brachial; VENT MODE, BG NASAL CANNULA
[2021-01-02 12:00] VITALS: BP 148/82
[2021-01-02] MEDS: IPRATROPIUM NEB FS 0.5 MG/2.5 ML AMPUL.NEB NEB SCH ×4 (12:57→23:46)
[2021-01-02] MEDS: ALBUTEROL HALF STRENGTH 1.25 MG/3 ML VIAL.NEB NEB SCH ×4 (12:57→23:46)
[2021-01-02 17:57] VITALS: BP 144/83
--- NOTE | 2021-01-02 18:12 | NUR ---
RN CLOSING NOTE PT IS AWAKE IN BED RESTING. ON 4L NC WITH NO SOB OR RESPIRATORY DISTRESS PRESENT. PT IS A/O X 2 AND ANXIOUS. NO COMPLAINT OF PAIN OR NAUSEA. TREMORS PRESENT AND MD AWARE. NO CLERK GENERAL PRESENT. NO EDEMA PRESENT. BED ALARM ON. NO SKIN ISSUES PRESENT. ON CARDIAC DIET. IV PRESENT ON R HAND 22G AND FLUSHES WELL. HEP LOCKED. LABS AND ORDERS REVIEWED. SAFETY MEASURES IN PLACE. SIDE RAILS RAISED. BED LOWERED. CALL LIGHT WITHIN REACH. REPORT TO BE GIVEN TO NIGHT NURSE FOR ANGEL.
[2021-01-02 20:00] VITALS: BP 129/89
--- NOTE | 2021-01-02 20:14 | NUR ---
MS RN OPENING NOTE PATIENT A/OX1; OPENS EYES. GENERAL TREMORS NOTED. TOLERATING ROOM AIR WELL WITH NO SOB. NO S/SX OF PAIN NOTED. R HAND #22G S/L PATENT AND INTACT. ALL NEEDS MET AT THIS TIME. PATIENT SAFETY MEASURES IN PLACE: BED IN LOWEST LOCKED POSITION, SIDE RAILS UPX2, CALL LIGHT WITHIN EASY REACH, BED ALARMS ON. PATIENT IN STABLE CONDITION, WILL CONTINUE PLAN OF CARE
[2021-01-02] MEDS: SENNOSIDES 8.6 MG TABLET PO SCH ×2 (21:53→22:00)
[2021-01-02] MEDS: DOCUSATE SODIUM 100 MG CAPSULE PO SCH ×2 (21:54→22:00)
[2021-01-02] MEDS: ENOXAPARIN SODIUM 40 MG/0.4 ML DISP.SYRIN SQ SCH (21:55)
[2021-01-02 22:00] VITALS: BP 129/89
[2021-01-03] MEDS: ALBUTEROL HALF STRENGTH 1.25 MG/3 ML VIAL.NEB NEB SCH ×6 (03:51→23:30)
[2021-01-03] MEDS: IPRATROPIUM NEB FS 0.5 MG/2.5 ML AMPUL.NEB NEB SCH ×6 (03:51→23:30)
[2021-01-03 04:00] VITALS: BP 115/78
--- NOTE | 2021-01-03 07:00 | NUR ---
RN NOTES RECEIVED PT ON BED, OPENS EYES. GENERAL TREMORS NOTED. ON 2L O2 N/C , NO S/SX OF PAIN NOTED. R HAND IV SITE G 22 CLEAN,DRY AND INTACT, PATIENT SAFETY MEASURES IN PLACE: BED IN LOWEST LOCKED POSITION, SIDE RAILS UPX2, CALL LIGHT WITHIN EASY REACH, BED ALARMS ON. WILL CONTINUE TO MONITOR .
--- NOTE | 2021-01-03 07:40 | NUR ---
MS RN OPENING NOTE PATIENT A/OX1; OPENS EYES. GENERAL TREMORS NOTED. TOLERATING ROOM AIR WELL WITH NO SOB. NO S/SX OF PAIN NOTED. R HAND #22G S/L PATENT AND INTACT. ALL NEEDS MET AT THIS TIME. PATIENT REFUSED ADLS CARE X3. PATIENT SAFETY MEASURES IN PLACE: BED IN LOWEST LOCKED POSITION, SIDE RAILS UPX2, CALL LIGHT WITHIN EASY REACH, BED ALARMS ON. PATIENT IN STABLE CONDITION, ENDORSED PLAN OF CARE
[2021-01-03] MEDS: BLOOD SUGAR DIAGNOSTIC 1 EACH STRIP IN SCH ×3 (07:59→17:20)
[2021-01-03 08:00] VITALS: BP 163/83
[2021-01-03] MEDS: risperiDONE 1 MG TABLET PO SCH (08:07)
[2021-01-03] MEDS: methylPREDNISolone SOD SUCC 40 MG/ML VIAL IV SCH ×2 (08:15→20:17)
[2021-01-03] MEDS: LEVOFLOXACIN (250MG) 250 MG TABLET PO SCH ×3 (10:26→13:02)
--- NOTE | 2021-01-03 11:00 | NUR ---
RN NOTES PT IS AGITATED AND YELLING OUT AND REFUSING HER PO MEDS.
[2021-01-03] MEDS: INSULIN REGULAR, HUMAN 100 UNIT/ML 3 ML VIAL SQ PRN ×2 (11:54→17:19)
[2021-01-03] MEDS ORDERED: AZIT500T2 PO (12:34)
--- NOTE | 2021-01-03 15:00 | NUR ---
RN NOTES PT STILL AGITATED AND ANGERY, REFUSED LUNCH , DR BROWN NOTIFIED. DISCHARGE ON HOLD PER DR BROWN AT THIS TIME .
[2021-01-03 16:00] VITALS: BP 134/69
[2021-01-03] MEDS ORDERED: risperiDONE 1 MG TABLET PO ONE (17:00)
--- NOTE | 2021-01-03 18:16 | NUR ---
RN NOTES PT SITTING UP , CALM AND COOPERATIVE , EATING HER DINNER , VSS STABLE, WILL ENDORSE TO VET TECH NURSE FOR CONTINITUY OF CARE .
--- NOTE | 2021-01-03 19:00 | NUR ---
RN NOTE RECEIVED PATIENT IN BED RESTING ALERT ORIENTED X1 VERBALLY RESPONSIVE ON 2L OXYGEN VIA NASAL O2:95% IV SITE IS ON RIGHT HAND INTACT PATENT,AMBULATORY WITH ASSIST,INCONTINENT TO BOWEL/BLADDER SAFETY MEASURE IMPLEMENT, BED IN LOW POSITION AND LOCKED,BED ALARM IS ON CONTINUE TO MONITOR.
[2021-01-03] MEDS: ENOXAPARIN SODIUM 40 MG/0.4 ML DISP.SYRIN SQ SCH (20:17)
[2021-01-03] MEDS: DOCUSATE SODIUM 100 MG CAPSULE PO SCH (21:13)
[2021-01-03] MEDS: SENNOSIDES 8.6 MG TABLET PO SCH (21:13)
--- NOTE | 2021-01-03 22:15 | NUR ---
RN NOTE REPORT GIVEN TO ALEJANDRO LUCERO FOR CONTINUATION OF CARE
[2021-01-03 22:41] VITALS: BP 141/67
[2021-01-04] MEDS: BLOOD SUGAR DIAGNOSTIC 1 EACH STRIP IN SCH ×4 (00:11→17:45)
[2021-01-04] MEDS: INSULIN REGULAR, HUMAN 100 UNIT/ML 3 ML VIAL SQ PRN ×4 (00:14→18:34)
--- NOTE | 2021-01-04 00:14 | NUR ---
RN NOTE PT BLOOD SUGAR WAS 216. WILL ADMINISTER INSULIN PER SLIDING SCALE.
[2021-01-04] MEDS: IPRATROPIUM NEB FS 0.5 MG/2.5 ML AMPUL.NEB NEB SCH ×7 (03:30→23:17)
[2021-01-04] MEDS: ALBUTEROL HALF STRENGTH 1.25 MG/3 ML VIAL.NEB NEB SCH ×7 (03:30→23:17)
[2021-01-04 04:00] VITALS: BP 140/65
--- NOTE | 2021-01-04 06:33 | NUR ---
RN NOTE NO CHANGES IN PT CONDITION DURING SHIFT. PT CURRENTLY ON 2L OF O2 VIA NC SHOWING NO S/S OF RESP DISTRESS. CURRENTLY A&OX1. IV LINE ON RIGHT HAND #22. FLUSHED, PATENT, AND INTACT WITH NO S/S OF INFILTRATION. PT KEPT CLEAN AND COMFORTABLE. ALL DUE MEDS GIVEN ORDERED. ALL SAFETY MEASURES IMPLEMENTED. CALL LIGHT WITHIN REACH. BED ALARM ON. BED LOCKED AND IN LOWEST POSITION. WILL ENDORSE TO MORNING SHIFT RN FOR ANGEL.
--- NOTE | 2021-01-04 07:30 | NUR ---
PT RECEIVED RESTING COMFORTABLY IN BED WITH EYES CLOSED. NO S/S OR C/O PAIN OR DISTRESS NOTED. SIDE RAILS UP X2, CALL LIGHT LEFT WITHIN REACH. WILL CONTINUE PLAN OF CARE.
[2021-01-04] MEDS: methylPREDNISolone SOD SUCC 40 MG/ML VIAL IV SCH ×3 (08:43→21:30)
[2021-01-04] MEDS: risperiDONE 1 MG TABLET PO SCH ×2 (08:43→17:45)
[2021-01-04] MEDS ORDERED: RISP1TAB7 PO (09:40)
[2021-01-04] MEDS: LEVOFLOXACIN (250MG) 250 MG TABLET PO SCH (11:38)
--- NOTE | 2021-01-04 13:30 | NUR ---
DC HELD DUE TO HYPERTENSION. MD MADE AWARE, ORDERS RECEIVED, WILL CARRY OUT. TRANSPORTATION RESCHEDULED TO ADDRESS BLOOD PRESSURE.
[2021-01-04] MEDS ORDERED: LABETALOL HCL IV 100MG VIAL IV STA (13:33)
[2021-01-04 14:22] VITALS: BP 163/71
[2021-01-04] MEDS ORDERED: hydrALAZINE HCL 25 MG TABLET PO ONE (14:30)
--- NOTE | 2021-01-04 17:32 | NUR ---
DISCHARGE CANCELLED R/T PERSISTENT HYPERTENSION DESPITE PRN BP MEDS PER LEYLA VOSS NOTIFIED.
[2021-01-04] MEDS ORDERED: hydrALAZINE HCL IV 20 MG VIAL IV PRN (18:00)
[2021-01-04] MEDS ORDERED: CLONIDINE HCL 0.1 MG TABLET PO PRN (18:00)
--- NOTE | 2021-01-04 19:27 | NUR ---
CHANGE OF SHIFT REPORT PT RESTING COMFORTABLY IN BED. NO S/S OR C.O PAIN OR DISTRESS NOTED. SIDE RAILS UP X2, CALL LIGHT LEFT WITHIN REACH. PT KEPT CLEAN, DRY, AND COMFORTABLE. REPORT GIVEN TO JUDITH LUCERO.
--- NOTE | 2021-01-04 19:30 | NUR ---
RN NOTE PT RECEIVED IN BED. CURRENTLY ON 2L OF O2 VIA NC, SHOWING NO S/S OF RESP DISTRESS. BREATHING EVEN AND UNLABORED. CURRENTLY A&OX1. PT HAS IV ON RIGHT HAND GAUGE 22, FLUSHED, PATENT, AND INTACT WITH NO S/S OF INFILTRATION. ALL SAFETY MEASURES IMPLEMENTED. CALL LIGHT WITHIN REACH. BED LOCKED AND IN LOWEST POSITION. WILL CONTINUE TO MONITOR THROUGHOUT SHIFT.
[2021-01-04 20:00] VITALS: BP 131/65
[2021-01-04] MEDS: ENOXAPARIN SODIUM 40 MG/0.4 ML DISP.SYRIN SQ SCH ×2 (21:00→21:31)
[2021-01-04] MEDS: SENNOSIDES 8.6 MG TABLET PO SCH (21:30)
[2021-01-04] MEDS: DOCUSATE SODIUM 100 MG CAPSULE PO SCH (21:30)
--- NOTE | 2021-01-04 21:48 | NUR ---
RN NOTE PT REFUSED SOLU-MEDROL. WASTED 1ML IN CONTAINER. PT ALSO REFUSED LOVENOX. TRIED TO TALK ABOUT THE BENEFITS OF MEDICATIONS, BUT PT KEPT REFUSING.
--- NOTE | 2021-01-05 | NUR ---
RN NOTE PT REFUSED TO HAVE VITALS TAKEN.
[2021-01-05] MEDS: BLOOD SUGAR DIAGNOSTIC 1 EACH STRIP IN SCH ×3 (00:03→12:13)
[2021-01-05] MEDS: INSULIN REGULAR, HUMAN 100 UNIT/ML 3 ML VIAL SQ PRN ×3 (00:07→12:28)
--- NOTE | 2021-01-05 00:07 | NUR ---
RN NOTE PT BLOOD SUGAR WAS 172. ADMINISTERED INSULIN PER SLIDING SCALE.
--- NOTE | 2021-01-05 00:35 | NUR ---
FACILITIES OFFICER NOTES REPORT GIVEN BY PHIL LUCERO, RECEIVED TRANSFER FROM [facility] VIA ACLS PROTOCOL,ALERT,ORIENTED X 3,BREATHING NON LABOREDMO2 IN USED AT 2L/NC TO KEEP O2 SAT ABOVE 90%.SALINE LOCK RIGHT HAND INTACT AND PATENT.NO SKIN ISSUES.PATIENT REFUSED TELE MONITORING THIS TIME.EXPLAINED RISK AND BENEFITS FOR HAVING TELE MONITOR BUT STILL REFUSED.CALL LIGHT IN REACH,NEEDS ANTICIPATED.
[2021-01-05] MEDS: ALBUTEROL HALF STRENGTH 1.25 MG/3 ML VIAL.NEB NEB SCH ×3 (03:30→11:30)
[2021-01-05] MEDS: IPRATROPIUM NEB FS 0.5 MG/2.5 ML AMPUL.NEB NEB SCH ×3 (03:30→11:30)
--- NOTE | 2021-01-05 05:30 | NUR ---
WIRE DRAWING MACHINE OPERATOR NOTES ACCU-CHECK BLOOD SUGAR CHECK 142,COVERED WITH HUMULIN R 2 UNITS PER SLIDING SCALE.
--- NOTE | 2021-01-05 06:08 | NUR ---
ACCOUNTING MANAGER CONTROLLER NOTES CALM AND QUIET ON BED,BREATHING REGULAR,BLOOD PRESSURE WITH IN NORMAL LIMITS,POSSIBLE DISCHARGE TODAY.
--- NOTE | 2021-01-05 07:00 | NUR ---
TRAFFIC CHECKER NOTES BLOOD PRESSURE 178/92,OFFERED APRESOLINE 10MG IV BUT REFUSED,ALSO REFUSED TELE MONITOR.OFFERED CATAPRES 0.1MG PO WITH RE CHECK BLOOD PRESSURE OF 166/99,STILL REFUSED.
--- NOTE | 2021-01-05 07:48 | NUR ---
FERTILIZER PROCESSING SUPERVISOR OPENING NOTE RECEIVED PATIENT LYING IN BED, AWAKE. A/O X1. STABLE ON 2L O2 - NO SOB NOTED. NO DISTRESS/DISCOMFORT NOTED. NO PAIN NOTED. PATIENT IS REFUSING TELE MONITOR. SKIN INTACT. IV ACCESS TO RIGHT HAND #22 - S/L. SAFETY MEASURES IMPLEMENTED. CALL LIGHT WITHIN REACH. WILL CONTINUE TO MONITOR.
[2021-01-05] MEDS ORDERED: LORAZEPAM INJ 2 MG/ML VIAL IV PRN (08:30)
[2021-01-05] MEDS: risperiDONE 1 MG TABLET PO SCH (08:57)
[2021-01-05] MEDS: methylPREDNISolone SOD SUCC 40 MG/ML VIAL IV SCH (08:59)
[2021-01-05] MEDS: LISINOPRIL (10MG) 10 MG TABLET PO SCH ×2 (08:59→09:56)
[2021-01-05 09:56] VITALS: BP 123/60
[2021-01-05] MEDS: LEVOFLOXACIN (250MG) 250 MG TABLET PO SCH (11:00)
--- NOTE | 2021-01-05 13:29 | NUR ---
MS PEST CONTROL OPERATOR NOTE PATIENT DISCHARGED VIA AMBULANCE @ 1325. PATIENT STABLE, A/O X2. ON 2L O2 VIA NASAL CANNULA - SATURATION @ 92%. NO PAIN NOTED. ALL DISCHARGE PAPERWORK GIVEN TO EMT'S. REPORT GIVEN TO RN @ KATHI ALEX. IV ACCESS REMOVED. WRISTBAND REMOVED. PATIENT ACCOMPANIED TO LOBBY BY EMT'S.
== END 2021-01-05 13:30 | DRG 291 ==
LOC: ER 18:55 → TRANSITION 12-30 00:19 → TELE1 12-30 20:31 → TELE-TD 12-30 20:57 → MEDSG1 01-01 05:36 → TELE1 01-04 13:33 → TELE 01-04 23:48
PROVIDERS: ADMIT Nurse Practitioner Acute Care; ATTEND Internal Medicine
PROC: 5A09457 Assistance with Respiratory Ventilation, 24-96 Consecutive Hours, Continuous Positive Airway Pressure (ICD-10-PCS; principal; 2020-12-30)
PROC: 05H933Z Insertion of Infusion Device into Right Brachial Vein, Percutaneous Approach (ICD-10-PCS; 2020-12-31)
DX: I11.0 Hypertensive heart disease with heart failure (principal); J96.21 Acute and chronic respiratory failure with hypoxia; J96.22 Acute and chronic respiratory failure with hypercapnia; J44.1 Chronic obstructive pulmonary disease with (acute) exacerbation; E44.1 Mild protein-calorie malnutrition; E87.1 Hypo-osmolality and hyponatremia; F05 Delirium due to known physiological condition; I50.33 Acute on chronic diastolic (congestive) heart failure; E11.65 Type 2 diabetes mellitus with hyperglycemia; Z83.3 Family history of diabetes mellitus; Z20.822 Contact with and (suspected) exposure to COVID-19; Z79.899 Other long term (current) drug therapy; E78.5 Hyperlipidemia, unspecified; Z91.19 Patient's noncompliance with other medical treatment and regimen; E11.42 Type 2 diabetes mellitus with diabetic polyneuropathy; F17.200 Nicotine dependence, unspecified, uncomplicated; Z88.0 Allergy status to penicillin; Z79.51 Long term (current) use of inhaled steroids; F25.9 Schizoaffective disorder, unspecified; G31.84 Mild cognitive impairment of uncertain or unknown etiology; Z82.49 Family history of ischemic heart disease and other diseases of the circulatory system
CPT/HCPCS: 36410; 36415; 36600; 71045-TC; 80048-TC; 80061-TC; 80076-TC; 82803-TC; 82962-TC; 83605-TC; 83735-TC; 83880; 84100-TC; 84484-TC; 85025-TC; 85730-TC; 87040-TC; 87081-TC; 94762-TC; 94799-TC; C9803; G0378; J0360; J1650; J1720; J1815; J1956; J2405; J2920; J2930; J3490; U0003

== ENCOUNTER 2021-06-26 23:28 | Inpatient (IN) | payer MEDICARE, OTHER ==
[~2021-06-26] VITALS: Ht 170.2 cm; Wt 76.2 kg
[~2021-06-26 23:28] MED LIST changes: +AZIT500T2 PO; -FURO-144 PO; +RISP1TAB7 PO; -RISP3TAB61 PO
[2021-06-27] VITALS (16 sets, daily range): BP systolic 133–167; BP diastolic 73–95
--- NOTE | 2021-06-27 00:01 | NUR ---
PT BIBRA 860. C/O UNWITNESSED FALL; NOTED FACE AND HEAD TRAUMA. DENIED KO. PLACED ON MONITOR AND PULSE OX. AWAITING ER MD FOR ORDERS.
[2021-06-27] MEDS ORDERED: TDAP [DIPH/PERTUSSIS/TET] 0.5 ML VIAL IM ONE ×2 (00:30→00:31)
[2021-06-27] MEDS ORDERED: ACETAMINOPHEN ES 500 MG TABLET PO ONE (00:30)
[2021-06-27] MEDS ORDERED: ACETAMINOPHEN ES 500 MG TABLET ONE (00:31)
[2021-06-27 00:56] LABS: BASOPHILS # (AUTO) 0.1 K/uL (0.0-0.2); BASOPHILS % (AUTO) 0.9 % (0.0-2.0); EOSINOPHILS % (AUTO) 0.1 % (0.0-6.0); HEMATOCRIT 52 % (33-45); HEMOGLOBIN 15.2 g/dL (11.5-14.8); LYMPHOCYTES # (AUTO) 0.7 K/uL (0.8-4.8); LYMPHOCYTES % (AUTO) 12.4 % (20.0-44.0); MEAN CORPUSCULAR HGB CONC 29 g/dl (31.0-36.0); MEAN CORPUSCULAR VOLUME 77 fL (82-100); MONOCYTES # (AUTO) 0.7 K/uL (0.1-1.30); MONOCYTES % (AUTO) 13.7 % (2.0-12.0); NEUTROPHILS % (AUTO) 72.9 % (43.0-81.0); PLATELET COUNT (AUTO) 163 K/uL (150-450); RED BLOOD CELL COUNT(AUTO) 6.72 MIL/uL (4.0-5.2); WHITE BLOOD COUNT (AUTO) 5.4 K/uL (4.3-11.0)
[2021-06-27 01:00] LABS: CALCIUM, SERUM 8.4 mg/dL (8.5-10.1); CARBON DIOXIDE 35 mmol/L (21-32); CHLORIDE 99 mmol/L (98-107); CREATININE 1.1 mg/dL (0.6-1.3); GLUCOSE 166 mg/dL (74-106); POTASSIUM 4.7 mmol/L (3.5-5.1); SODIUM SERUM 136 mmol/L (136-145); UREA NITROGEN, BLOOD 25 mg/dL (7-18)
--- NOTE | 2021-06-27 01:01 | NUR ---
PT REFUSING TO BE PLACED IN A GOWN.
--- NOTE | 2021-06-27 01:08 | NUR ---
TAKEN TO CT
[2021-06-27] MEDS ORDERED: IV NS 0.9% 1,000 ML IV ONE (01:30)
--- NOTE | 2021-06-27 02:09 | NUR ---
PT SAT IN THE 60'S ON ROOM AIR. ER MD AT BEDSIDE FOR EVAL. RT CALLED.
--- NOTE | 2021-06-27 02:16 | NUR ---
PLACED ON NR, SAT HIGH 90'S NOW.
[2021-06-27] MEDS ORDERED: DEXAMETHASONE SOD PHOSPHATE 10 MG/ML VIAL ONE (02:19)
--- NOTE | 2021-06-27 02:23 | NUR ---
RUPALID SWABBED, SENT TO LAB.
[2021-06-27] MEDS ORDERED: ONDANSETRON HCL/PF 4 MG/2 ML VIAL IVP PRN (02:30)
[2021-06-27] MEDS ORDERED: MAG HYDROX/AL HYDROX/SIMETH 30 ML UDC PO PRN (02:30)
[2021-06-27] MEDS ORDERED: ACETAMINOPHEN 325 MG TABLET PO PRN (02:30)
[2021-06-27] MEDS ORDERED: Z GUARD REMEDY 4 OZ OINT TP PRN (02:30)
[2021-06-27] MEDS ORDERED: DEXAMETHASONE SOD PHOSPHATE 10 MG/ML VIAL IV ONE (02:30)
[2021-06-27] MEDS ORDERED: MAGNESIUM HYDROXIDE 30 ML UDC PO PRN (02:30)
[2021-06-27] MEDS ORDERED: ZOLPIDEM TARTRATE 5 MG TABLET PO PRN (02:30)
[2021-06-27] MEDS ORDERED: PROPOFOL 100 ML ONE ×2 (02:53→06:43)
--- NOTE | 2021-06-27 03:00 | NUR ---
ER MD AND RT AT BEDSIDE. PT WILL BE INTUBATED.
--- NOTE | 2021-06-27 03:05 | NUR ---
RT NOTE CALLED TO ER FOR ABG. PT ADMITTED FOR FALL. PT INTUBATED VIA 8.0 ETT @ 25CM LIPLINE. POSITIVE COLOR CHANGE & BILATERAL BS NOTED. PT PLACED ON VENT W SETTINGS OF AC 16,500,100%,+5 PER MD ORDER. PT AMAIRANI SETTINGS WELL. Addendum: 06/27/21 at 0536 by TRELL FIGUEROA RT Amended: Links added.
[2021-06-27] MEDS ORDERED: ALBUTEROL FS 2.5 MG/3 ML VIAL.NEB NEB PRN (03:30)
[2021-06-27] MEDS ORDERED: IPRATROPIUM NEB FS 0.5 MG/2.5 ML AMPUL.NEB NEB PRN (03:30)
[2021-06-27] MEDS ORDERED: MIDAZOLAM HCL 5 MG/5ML VIAL ONE (03:38)
[2021-06-27] MEDS ORDERED: SUCCINYLCHOLINE CHLORIDE 20 MG/ML VIAL IV ONE ×2 (04:00→13:36)
[2021-06-27] MEDS ORDERED: MIDAZOLAM HCL 2 MG/2ML VIAL IV ONE (04:00)
[2021-06-27] MEDS ORDERED: ETOMIDATE 2 MG/ML VIAL IV ONE ×2 (04:00→13:35)
[2021-06-27] MEDS ORDERED: PROPOFOL 100 ML IV ONE (04:00)
--- NOTE | 2021-06-27 04:47 | NUR ---
ON WHITE METAL CORROSION PROOFER AND PULSE OX. WILL CONTINUE TO MONITOR.
[2021-06-27] MEDS ORDERED: ENOXAPARIN SODIUM 40 MG/0.4 ML DISP.SYRIN SQ ONE (05:23)
[2021-06-27] MEDS ORDERED: VANCOMYCIN 500 MG VIAL ONE (05:23)
[2021-06-27] MEDS ORDERED: VANCOMYCIN 1 GM VIAL ONE (05:24)
[2021-06-27] MEDS ORDERED: VANCOMYCIN 1.75 GM in IV D5W 500 ML IV ONE (05:30)
[2021-06-27] MEDS: ENOXAPARIN SODIUM 40 MG/0.4 ML DISP.SYRIN SQ SCH ×2 (05:36→21:01)
--- NOTE | 2021-06-27 06:04 | NUR ---
ICU BED 257
[2021-06-27] MEDS ORDERED: ALBUTEROL SULFATE 8 GM HFA.AER.AD IH PRN (07:00)
[2021-06-27] MEDS ORDERED: IPRATROPIUM BROMIDE 14 GM INHALER (or 12.9 GM) IH PRN (07:00)
--- NOTE | 2021-06-27 07:24 | NUR ---
REPORT GIVEN TO LIZ LUCERO FOR ANGEL
[2021-06-27] MEDS ORDERED: PANTOPRAZOLE 40 MG TABLET.DR PO SCH (07:30)
--- NOTE | 2021-06-27 07:37 | NUR ---
REPORT GIVEN TO NURSE FAJARDO FROM ICU FOR ANGEL
--- NOTE | 2021-06-27 07:50 | NUR ---
THE PATIENT IS TRANSFERED TO ROOM 257 PER ACLS POLICY
--- NOTE | 2021-06-27 07:51 | NUR ---
PT ARRIVED IN ICU ROOM 257 AT 0751 FROM ER. PT INTUBATED SEDATED ON PROPOFOL. APPEARS TO BE STABLE.
[2021-06-27] MEDS ORDERED: METF-881 PO (07:59)
[2021-06-27] MEDS ORDERED: BUDE10.2 IH (07:59)
[2021-06-27] MEDS ORDERED: FURO-145 PO (07:59)
[2021-06-27] MEDS ORDERED: AMLO10TA4 PO (07:59)
[2021-06-27] MEDS ORDERED: INSU100V3 SQ (07:59)
[2021-06-27] MEDS ORDERED: ALBU2.5V38 IH (07:59)
[2021-06-27] MEDS ORDERED: ASCO-352 PO (07:59)
[2021-06-27] MEDS ORDERED: ATOR10TA PO (07:59)
[2021-06-27] MEDS ORDERED: INSU100V7 SQ (07:59)
[2021-06-27] MEDS ORDERED: GLUC1KIT IM (07:59)
[2021-06-27] MEDS ORDERED: RISP0.2515 PO (07:59)
[2021-06-27] MEDS ORDERED: LISI-768 PO (07:59)
[2021-06-27] MEDS ORDERED: MULT-447 PO (07:59)
[2021-06-27 08:34] LABS: ABG BASE EXCESS 4.6 mmol/L; ABG PCO2 126.6 mmHg (35.0-45.0); ABG PH 7.111 (7.350-7.450); ABG PO2 138.7 mmHg (75.0-100.0); COHb 6.5 % (0.5-1.5); MetHb 0.5 % (0.0-1.5); SITE, ABG Left Radial; VENT MODE, BG NON REBREATHER
[2021-06-27 08:35] LABS: ABG BASE EXCESS 2.8 mmol/L; ABG OXYGEN SATURATION 99.4 % (92.0-98.5); ABG PO2 409.6 mmHg (75.0-100.0); AaDO2 244.4 mmHg; COHb 5.8 % (0.5-1.5); MetHb 0.1 % (0.0-1.5); O2Hb 93.5 % (94.0-97.0); PEEP,BG 5 cm H2O; SITE, ABG Right Radial; VT, ABG 500 mL
[2021-06-27] MEDS: PROPOFOL 100 ML IV PRN ×4 (09:43→23:20)
[2021-06-27] MEDS: DEXAMETHASONE SOD PHOSPHATE 10 MG/ML VIAL IV SCH (09:48)
[2021-06-27 09:59] LABS: BAND % (MANUAL) 2 % (0.0-5.0); LYMPHOCYTES % (MANUAL) 15 % (16-48); MONOCYTES % (MANUAL) 14 % (0-11.0); NEUTROPHILS % (MANUAL) 69 (42-76)
[2021-06-27] MEDS ORDERED: AZTREONAM 1 G VIAL IM SCH (11:00)
[2021-06-27] MEDS: FUROSEMIDE 40 MG/4 ML VIAL IV SCH (11:30)
[2021-06-27] MEDS: AZTREONAM 1 G in IV NS 0.9% 100 ML IV SCH ×2 (14:07→20:00)
[2021-06-27] MEDS ORDERED: MAG HYDROX/AL HYDROX/SIMETH 30 ML UDC GT PRN (19:12)
[2021-06-27] MEDS ORDERED: MAGNESIUM HYDROXIDE 30 ML UDC GT PRN (19:12)
[2021-06-27] MEDS ORDERED: ZOLPIDEM TARTRATE 5 MG TABLET GT PRN (19:13)
--- NOTE | 2021-06-27 19:13 | NUR ---
END OF SHIFT NOTE. PT CONTINUES TO BE SEDATED ON PROPOFOL W/O DIFFICULTY. URINE SAMPLE SENT TO LAB PER MD ORDERS. PT CHECKED ON HOURLY AND PRN BY NURSING STAFF.
[2021-06-27] MEDS ORDERED: ACETAMINOPHEN 650 MG/20.3 ML UDC GT PRN (19:30)
[2021-06-27] MEDS ORDERED: PHARMACY TO CHANGE PO MEDS TO GT/NG XX PRN (19:30)
[2021-06-27] MEDS: VANCOMYCIN 1.25 GM in IV D5W 250 ML IV SCH (21:00)
[2021-06-27] MEDS ORDERED: CLONIDINE HCL 0.1 MG TABLET NG PRN (22:30)
[2021-06-28] VITALS (24 sets, daily range): BP systolic 107–152; BP diastolic 58–82
[2021-06-28 01:38] LABS: BILIRUBIN,URINE NEGATIVE (NEGATIVE); COLOR,URINE YELLOW (YELLOW); LEUKOCYTE ESTERASE ,URINE SMALL (NEGATIVE); NITRITE, URINE NEGATIVE (NEGATIVE); PH,URINE 5.5 (5.0-8.0); PROTEIN,URINE NEGATIVE (NEGATIVE); UGLUCOSE NEGATIVE (NEGATIVE); UROBILINOGEN,URINE 0.2 EU/dL (0.2)
[2021-06-28 02:05] LABS: CREATININE, URINE 25.8 MG/DL (30.0-125.0); URINE TOTAL PROTEIN 3.6 mg/dL (0-11.9)
[2021-06-28] MEDS: PROPOFOL 100 ML IV PRN ×2 (03:08→07:22)
[2021-06-28] MEDS: AZTREONAM 1 G in IV NS 0.9% 100 ML IV SCH ×3 (05:04→20:51)
[2021-06-28 05:28] LABS: BASOPHILS % (AUTO) 0.3 % (0.0-2.0); HEMATOCRIT 54 % (33-45); HEMOGLOBIN 16.3 g/dL (11.5-14.8); MEAN CORPUSCULAR HGB CONC 30 g/dl (31.0-36.0); MEAN CORPUSCULAR VOLUME 74 fL (82-100); MONOCYTES # (AUTO) 0.9 K/uL (0.1-1.30); MONOCYTES % (AUTO) 11.4 % (2.0-12.0); NEUTROPHILS # (AUTO) 5.9 K/uL (1.8-8.9); NEUTROPHILS % (AUTO) 75.3 % (43.0-81.0); PLATELET COUNT (AUTO) 146 K/uL (150-450); RED BLOOD CELL COUNT(AUTO) 7.29 MIL/uL (4.0-5.2); WHITE BLOOD COUNT (AUTO) 7.8 K/uL (4.3-11.0)
[2021-06-28 06:46] LABS: CARBON DIOXIDE 30 mmol/L (21-32); CHLORIDE 101 mmol/L (98-107); GLUCOSE 175 mg/dL (74-106); POTASSIUM 4.9 mmol/L (3.5-5.1); SODIUM SERUM 137 mmol/L (136-145)
[2021-06-28 06:47] LABS: BILIRUBIN,DIRECT 0.2 mg/dL (0.0-0.2); BILIRUBIN,TOTAL 0.5 mg/dL (0.2-1.0); CALCIUM, SERUM 7.7 mg/dL (8.5-10.1); PHOSPHORUS 3.8 mg/dL (2.5-4.9); UREA NITROGEN, BLOOD 22 mg/dL (7-18)
[2021-06-28 06:48] LABS: ALBUMIN 1.8 g/dL (3.4-5.0); ALKALINE PHOSPHATASE 71 U/L (46-116); ASPARTATE AMINOTRANSFERASE 14 U/L (15-37); MAGNESIUM 1.9 mg/dL (1.8-2.4); TOTAL PROTEIN, SERUM 5.1 g/dL (6.4-8.2)
[2021-06-28 07:05] LABS: ALANINE AMINOTRANSFERASE < 6 U/L (12-78)
--- NOTE | 2021-06-28 07:15 | NUR ---
RN NOTES RECEIVED PT IN BED. SEDATED ON DIPRIVAN @ 50MCG/KG/MIN. TOLERATING VENT SETTINGS WELL. IV ACCESS ON R HAND, R WRIST AND L HAND ALL INTACT, PATENT AND FLUSHED. FACIAL ABRASIONS NOTED. JIMENEZ CATH IN PLACE, DRAINING YELLOW COLORED URINE. SOFT WRIST BILATERAL RESTRAINTS NOTED, CHECKED CIRCULATION PER PROTOCOL. OGT IN PLACE, CHECKED FOR PLACEMENT. SAFETY MEASURES IN PLACE. BED LOCKED AND IN LOWEST POSITION WITH SIDE RAILS UP X3. WILL CONTINUE TO MONITOR.
[2021-06-28] MEDS ORDERED: PANTOPRAZOLE 40 MG/PACK PACK GT SCH (07:30)
[2021-06-28] MEDS: DEXAMETHASONE SOD PHOSPHATE 10 MG/ML VIAL IV SCH (08:48)
[2021-06-28] MEDS: FUROSEMIDE 40 MG/4 ML VIAL IV SCH (08:48)
[2021-06-28] MEDS: VANCOMYCIN 1.25 GM in IV D5W 250 ML IV SCH ×2 (08:49→20:32)
--- NOTE | 2021-06-28 09:56 | NUR ---
WOUND CARE CONSULT: REVIEWED CHART,NURSING DOCUMENTATION AND PHOTO WHICH INDICATES DRY ABRASIONS TO FACE, PRESENT ON ADMISSION. RECOMMENDATIONS MADE FOR SKIN PROTECTION. DISCUSSED WITH NURSING STAFF. MD IN AGREEMENT WITH PLAN OF CARE.
--- NOTE | 2021-06-28 11:50 | NUR ---
RN NOTES PT ON SEDATION VACATION PER DR. CARLOS. VENT ON CPAP MODE. PT IS AWAKE, FOLLOWS SIMPLE COMMAND. VS STABLE. ABG IN 1 HR.
--- NOTE | 2021-06-28 13:15 | NUR ---
RT PATIENT EXTUBATED PER MD ORDER, PLACED ON SUPPLEMENTAL O2 AMAIRANI WELL. PATIENT AWAKE, ALERT, NO SOB. Addendum: 06/28/21 at 1447 by HOMERO ALLAN RT Amended: Links added.
--- NOTE | 2021-06-28 13:15 | NUR ---
RN NOTES ABG RESULTS FORWARDED TO DR. CARLOS. ORDERED EXTUBATION. PT AWAKE. FOLLOWS SIMPLE COMMANDS. ON 2L O2 VIA NC, TOLERATING WELL. NO SOB OR ANY DISTRESS.
[2021-06-28 14:04] LABS: BAND % (MANUAL) 1 % (0.0-5.0); LYMPHOCYTES % (MANUAL) 6 % (16-48); MONOCYTES % (MANUAL) 13 % (0-11.0); NEUTROPHILS % (MANUAL) 79 (42-76)
[2021-06-28 14:42] LABS: BACTERIA,URINE 1+ /HPF (None Seen); SQUAMOUS EPITHELIAL CELL,UR FEW /HPF (None Seen); WBC,URINE 15-25 /HPF (0-3)
[2021-06-28 14:44] LABS: HYALINE CASTS, URINE Few /LPF (None Seen); WAXY CASTS,URINE FEW /LPF (None Seen)
--- NOTE | 2021-06-28 16:00 | NUR ---
RN NOTES BEDSIDE SWALLOW EVAL DONE. NO SIGNS OF ASPIRATION. ABLE TO TAKE SIPS OF WATER AND APPLE SAUCE. MD AWARE. SWALLOW EVAL ORDERED.
[2021-06-28] MEDS ORDERED: PHARMACY TO CHANGE GT/NG MEDS TO PO XX PRN (16:30)
[2021-06-28] MEDS ORDERED: ZOLPIDEM TARTRATE 5 MG TABLET PO PRN (16:44)
[2021-06-28] MEDS ORDERED: MAG HYDROX/AL HYDROX/SIMETH 30 ML UDC PO PRN (16:44)
[2021-06-28] MEDS ORDERED: MAGNESIUM HYDROXIDE 30 ML UDC PO PRN (16:45)
[2021-06-28] MEDS ORDERED: ACETAMINOPHEN 325 MG TABLET PO PRN (17:00)
[2021-06-28 17:30] LABS: EOSINOPHIL,URINE None Seen
--- NOTE | 2021-06-28 19:18 | NUR ---
RN NOTES NO SIGNIFICANT CHANGES THROUGHOUT THE SHIFT. ALL DUE MEDS GIVEN. TOLERATING 2L O2 VIA NC. NO SOB OR ANY DISTRESS. KEPT CLEAN AND COMFORTABLE. SAFETY MEASURES IN PLACE. ENDORSED TO NIGHT RN FOR ANGEL.
--- NOTE | 2021-06-28 20:27 | NUR ---
ICU/RN: PT REFUSING BLOOD DRAW. RISKS AND BENEFITS EXPLAINED. PT STILL REFUSING.
--- NOTE | 2021-06-28 20:31 | NUR ---
MED NOTE: VANCOMYCIN HELD. PT REFUSING VANCO TROUGH. EXPLAINED RISKS AND BENEFITS OF ANTIBIOTIC THERAPY. PT STILL REFUSING.
--- NOTE | 2021-06-28 20:48 | NUR ---
ICU/RN: PT REFUSING IV LINE PLACEMENT. RISKS AND BENEFITS EXPLAINED. PT STATES SHE HAS THE RIGHT TO REFUSE ANYTHING SHE WANTS. LAZARUS RUBIN NOTIFIED. PT WITH NO IV ACCESS AT THIS TIME.
[2021-06-28] MEDS: ENOXAPARIN SODIUM 40 MG/0.4 ML DISP.SYRIN SQ SCH (20:51)
[2021-06-29] VITALS (19 sets, daily range): BP systolic 111–168; BP diastolic 53–88
[2021-06-29] MEDS: AZTREONAM 1 G in IV NS 0.9% 100 ML IV SCH ×3 (05:00→23:34)
[2021-06-29 05:01] LABS: CALCIUM, SERUM 7.4 mg/dL (8.5-10.1)
[2021-06-29] MEDS: FUROSEMIDE 40 MG/4 ML VIAL IV SCH (09:00)
[2021-06-29] MEDS: VANCOMYCIN 1.25 GM in IV D5W 250 ML IV SCH (09:00)
[2021-06-29] MEDS: DEXAMETHASONE SOD PHOSPHATE 10 MG/ML VIAL IV SCH (09:00)
--- NOTE | 2021-06-29 09:00 | NUR ---
RN NOTE UNABLE TO ADMINISTER 0900 MEDS DUE TO NO IV ACCESS
[2021-06-29] MEDS: PANTOPRAZOLE 40 MG TABLET.DR PO SCH (09:20)
--- NOTE | 2021-06-29 10:00 | NUR ---
RN NOTE DR. WALDROP AWARE PT DECLINING MIDLINE AND IV INSERTION. PT REFUSING
[2021-06-29] MEDS: VANCOMYCIN 1 GM in IV D5W 250 ML IV SCH (15:00)
--- NOTE | 2021-06-29 20:00 | NUR ---
COOK VACUUM KETTLE NOTES RECEIVED PTS IN BED ASLEEP ,AROUSABLE PER ENDORSEMENT PTS IS BEEN REFUSING TELE BOX MEDICATION , PTS RECEIVED ON 5LITERS OF SATING 94 %NO SOB NO DISTRESS NOTED , V/S STABLE AFEBRILE NO C/O OF PAIN , PTS OFFER MEDICATION SHES REFUSING , EXPLAIN TO HER R/B OF NOT TAKING MEDICATION , NOW SHE AGREE TO TAKE MEDICATION AND TO INSERT IV CANULA .IV CANNULA G#24 INSERTED X1 ATTEMPT WITH GOOD BLOOD RETURN . IV ATB WAS ABLE TO ADMINISTERED WITH NO COMPLICATION NOTED.ALL NEEDS ATTENDED TOO.CALL LIGHT WITHIN REACH KEPT PTS CLEAN DRY AND COMFORTABLE , ALL SAFETY MEASURES IMPLEMENTED , ALL PRECAUTIONARY MEASURES IMPLEMENTED OR OBSERVED AT ALL TIMES. WILL CONTINUE TO MONITOR PTS.
--- NOTE | 2021-06-29 20:25 | NUR ---
RN NOTE PT RECEIVED FROM ICU VIA WHEELCHAIR, PT NOT IN DISTRESS. ON O2 @4L VIA NC. NOT IN RESPIRATORY DISTRESS. NEEDS ATTENDED. PER COOK BARBECUE, PT REFUSED MEDS AND IV PLACEMENT. WILL ENDORSE TO NEXT RN. V/S WNL.
[2021-06-29] MEDS: ENOXAPARIN SODIUM 40 MG/0.4 ML DISP.SYRIN SQ SCH (23:35)
[2021-06-30] VITALS: BP 115/62
[2021-06-30] MEDS: VANCOMYCIN 1 GM in IV D5W 250 ML IV SCH ×2 (02:12→15:06)
[2021-06-30] MEDS: AZTREONAM 1 G in IV NS 0.9% 100 ML IV SCH ×3 (03:54→20:16)
[2021-06-30 04:00] VITALS: BP 111/68
--- NOTE | 2021-06-30 06:33 | NUR ---
telephone directory distributor driver notes Pts remain in bed awake a/ox 3 on 4 liters of 02 sating 92-94%% no sob no distress noted continue on iv atb as ordered . will endorse to rn day shift for continuity of care.
--- NOTE | 2021-06-30 07:30 | NUR ---
RN NOTES RECEIVED PATIENT IN BED AWAKE. ALERT AND ORIENTED TIMES 2. NO PAIN NOTED . IV SIDE ON THE RIGHT LOWER ARM INTACT . ABLE TO MAKE NEEDS KNOWN. ON JIMENEZ CATHETER DRAINING WELL. NO DISTRESS NOTED. WILL CONTINUE TO MONITOR.
[2021-06-30] MEDS: PANTOPRAZOLE 40 MG TABLET.DR PO SCH (07:38)
--- NOTE | 2021-06-30 07:51 | NUR ---
per [facility] pt pcr negative. made aware.
[2021-06-30 08:00] VITALS: BP 152/66
[2021-06-30] MEDS: FUROSEMIDE 40 MG/4 ML VIAL IV SCH (09:56)
[2021-06-30] MEDS: DEXAMETHASONE SOD PHOSPHATE 10 MG/ML VIAL IV SCH (09:56)
[2021-06-30 12:00] VITALS: BP 168/87
[2021-06-30 14:33] LABS: CALCIUM, SERUM 7.7 mg/dL (8.5-10.1); CREATININE 0.8 mg/dL (0.6-1.3)
[2021-06-30 14:47] LABS: POTASSIUM 4.1 mmol/L (3.5-5.1)
[2021-06-30 16:00] VITALS: BP 174/98
--- NOTE | 2021-06-30 19:30 | NUR ---
RN CLOSING NOTES PATIENT IN BED AWAKE. ALERT AND ORIENTED TIMES 2. NO PAIN NOTED . IV SIDE ON THE RIGHT LOWER ARM #24 INTACT . ALL DUE MEDS GIVEN ORDERED. NO DISTRESS NOTED. ABLE TO MAKE NEEDS KNOWN. ON JIMENEZ CATHETER DRAINING WELL. ABLE TO AMBULATE TO THE BATHROOM. NO DISTRESS NOTED. WILL ENDORSE FOR ANGEL..
[2021-06-30 20:00] VITALS: BP 164/78
--- NOTE | 2021-06-30 20:00 | NUR ---
PEANUT ROASTER NOTES RECEIVED PTS IN BED AWAKE PTS IS STILL REFUSING TELE BOX .ON 4LITERS OF 02 SATING 94 %NO SOB NO DISTRESS NOTED , V/S STABLE AFEBRILE NO C/O OF PAIN , MEDICATION GIVEN ORDERED WITH NO ASE NOTED, .IV CANNULA G#24 INTACT AND PATENT . IV ATB GIVEN WITH NO COMPLICATION NOTED.ALL NEEDS ATTENDED TOO.CALL LIGHT WITHIN REACH . KEPT PTS CLEAN DRY AND COMFORTABLE , ALL SAFETY MEASURES IMPLEMENTED , WILL CONTINUE TO MONITOR PTS.
[2021-06-30] MEDS: ENOXAPARIN SODIUM 40 MG/0.4 ML DISP.SYRIN SQ SCH (20:20)
[2021-06-30] MEDS: CLONIDINE HCL 0.1 MG TABLET PO PRN (20:21)
[2021-06-30] MEDS ORDERED: IPRATROPIUM NEB FS 0.5 MG/2.5 ML AMPUL.NEB NEB PRN (20:30)
[2021-06-30] MEDS ORDERED: ALBUTEROL FS 2.5 MG/3 ML VIAL.NEB NEB PRN (20:30)
[2021-07-01] VITALS: BP 147/77
[2021-07-01] MEDS: VANCOMYCIN 1 GM in IV D5W 250 ML IV SCH ×2 (03:35→15:22)
[2021-07-01 04:00] VITALS: BP 136/58
[2021-07-01] MEDS: AZTREONAM 1 G in IV NS 0.9% 100 ML IV SCH (05:21)
--- NOTE | 2021-07-01 06:27 | NUR ---
telecine operator notes Pts remain in bed awake a/ox 3 on 4 liters of 02 sating 92-91%% noted pts wheezing spoke to rt to give breathing treatment . will continue to monitor . will endorse to rn day shift for continuity of care.
--- NOTE | 2021-07-01 07:19 | NUR ---
oxygen flow decreased to 3 lpm due to 97% spo2 on 5 lpm. Addendum: 07/01/21 at 0719 by CHANCE LACKEY RT Amended: Links added.
--- NOTE | 2021-07-01 07:30 | NUR ---
RN OPENING NOTES RECEIVED PTS IN BED, ASLEEP PTS IS STILL REFUSING TELE BOX, WITH NC @3LPM WITH O2 SATING 98 %,NO SOB NO DISTRESS NOTED, IV LEFT WRIST G24 PATENT AND INTACT, FC DRAINING TO RAIN COLORED URINE. V/S STABLE AFEBRILE NO C/O OF PAIN , CALL LIGHT WITHIN REACH , ALL SAFETY MEASURES IMPLEMENTED
[2021-07-01 08:00] VITALS: BP 138/69
[2021-07-01] MEDS: PANTOPRAZOLE 40 MG TABLET.DR PO SCH (08:48)
[2021-07-01] MEDS: FUROSEMIDE 40 MG/4 ML VIAL IV SCH (09:43)
[2021-07-01] MEDS: DEXAMETHASONE SOD PHOSPHATE 10 MG/ML VIAL IV SCH (09:44)
[2021-07-01] MEDS ORDERED: POTA8CAP20 PO (11:56)
[2021-07-01] MEDS ORDERED: VANC1PLA9 IV (11:56)
[2021-07-01] MEDS ORDERED: FURO-144 PO (11:56)
[2021-07-01 12:00] VITALS: BP 179/87
--- NOTE | 2021-07-01 12:00 | NUR ---
RN NOTE PATIENT'S O2 SAT 88% ON 02 @ 3LPM, O2 INCREASED TO 4 LPM VIA NC WITH O2 SAT OF 90%.
[2021-07-01] MEDS: CLONIDINE HCL 0.1 MG TABLET PO PRN (12:02)
[2021-07-01] MEDS ORDERED: IV NS 0.9% 1,000 ML IV ONE (13:00)
[2021-07-01 15:26] LABS: CALCIUM, SERUM 8.6 mg/dL (8.5-10.1); CREATININE 0.7 mg/dL (0.6-1.3); MAGNESIUM 1.8 mg/dL (1.8-2.4); PHOSPHORUS 2.5 mg/dL (2.5-4.9); POTASSIUM 4.4 mmol/L (3.5-5.1)
[2021-07-01 15:59] LABS: BASOPHILS % (AUTO) 0.6 % (0.0-2.0); HEMATOCRIT 50 % (33-45); HEMOGLOBIN 14.5 g/dL (11.5-14.8); LYMPHOCYTES # (AUTO) 0.3 K/uL (0.8-4.8); LYMPHOCYTES % (AUTO) 3.4 % (20.0-44.0); MEAN CORPUSCULAR HGB CONC 29 g/dl (31.0-36.0); MEAN CORPUSCULAR VOLUME 76 fL (82-100); MONOCYTES # (AUTO) 0.3 K/uL (0.1-1.30); MONOCYTES % (AUTO) 3.6 % (2.0-12.0); NEUTROPHILS # (AUTO) 7.7 K/uL (1.8-8.9); NEUTROPHILS % (AUTO) 92.4 % (43.0-81.0); PLATELET COUNT (AUTO) 107 K/uL (150-450); WHITE BLOOD COUNT (AUTO) 8.3 K/uL (4.3-11.0)
[2021-07-01 16:00] VITALS: BP 148/88
[2021-07-01 16:27] LABS: LYMPHOCYTES % (MANUAL) 2 % (16-48); MONOCYTES % (MANUAL) 3 % (0-11.0); NEUTROPHILS % (MANUAL) 95 (42-76)
--- NOTE | 2021-07-01 17:02 | NUR ---
RN NOTES WITH DC ORDER. SPOKE WITH SAVANNA FROM [facility] ENDORSED PATIENT. IV LINE AND FC PULLED OUT ASEPTICALLY. NO COMPLAINTS OF PAIN NOTED, PATIENT NOT IN DISTRESS
--- NOTE | 2021-07-01 17:37 | NUR ---
RN NOTE PATIENT DISCHARGE VIA GURNEY AND PICKED UP BY AN AMBULANCE TO [facility] IN STABLE CONDITION.
== END 2021-07-01 17:50 | DRG 208 ==
LOC: ER 23:31 → TRANSITION 06-27 04:43 → ICU 06-27 06:10 → TELE1 06-29 18:09
PROVIDERS: ADMIT Student in an Organized Health Care Education/Training Program; ATTEND Nurse Practitioner Acute Care
PROC: 5A1935Z Respiratory Ventilation, Less than 24 Consecutive Hours (ICD-10-PCS; principal; 2021-06-27)
PROC: 0BH17EZ Insertion of Endotracheal Airway into Trachea, Via Natural or Artificial Opening (ICD-10-PCS; 2021-06-27)
DX: J96.01 Acute respiratory failure with hypoxia (principal); I50.33 Acute on chronic diastolic (congestive) heart failure; J15.9 Unspecified bacterial pneumonia; L03.115 Cellulitis of right lower limb; J44.0 Chronic obstructive pulmonary disease with (acute) lower respiratory infection; L03.116 Cellulitis of left lower limb; G93.40 Encephalopathy, unspecified; E87.2 Acidosis; N17.9 Acute kidney failure, unspecified; J98.11 Atelectasis; J96.02 Acute respiratory failure with hypercapnia; I11.0 Hypertensive heart disease with heart failure; E11.42 Type 2 diabetes mellitus with diabetic polyneuropathy; E78.5 Hyperlipidemia, unspecified; F20.9 Schizophrenia, unspecified; Z88.0 Allergy status to penicillin; Z79.51 Long term (current) use of inhaled steroids; Z79.899 Other long term (current) drug therapy; S09.90XA Unspecified injury of head, initial encounter; W05.0XXA Fall from non-moving wheelchair, initial encounter; Y92.129 Unspecified place in nursing home as the place of occurrence of the external cause; D75.1 Secondary polycythemia; E86.9 Volume depletion, unspecified; I27.20 Pulmonary hypertension, unspecified; M85.9 Disorder of bone density and structure, unspecified; Z79.4 Long term (current) use of insulin; Z82.49 Family history of ischemic heart disease and other diseases of the circulatory system; Z83.3 Family history of diabetes mellitus; Z91.19 Patient's noncompliance with other medical treatment and regimen; F29 Unspecified psychosis not due to a substance or known physiological condition; J20.9 Acute bronchitis, unspecified
CPT/HCPCS: 31720; 36415; 36600; 70450-TC; 70486-TC; 71045-TC; 80048-TC; 80053-TC; 80076-TC; 80202-TC; 81001; 82570-TC; 82803-TC; 83605-TC; 83735-TC; 84100-TC; 84155-TC; 84300-TC; 84484-TC; 85025-TC; 87040-TC; 87081-TC; 87086-TC; 90715; 92526; 92611-TC; 94002-TC; 94003-TC; 94799-TC; A4217; C9803; G0378; J0330; J1100; J1650; J1940; J2250; J2405; J3370; J3490; J7030; J7050; J7060; U0003

== ENCOUNTER 2022-01-03 18:40 | Inpatient (IN) | payer MEDICARE, OTHER ==
[~2022-01-03] VITALS: Ht 170.2 cm; Wt 71.2 kg
[~2022-01-03 18:40] MED LIST changes: -ACET-2605 PO; +ALBU2.5V38 IH; +AMLO10TA4 PO; +ASCO-352 PO; +ATOR10TA PO; -AZIT500T2 PO; +BUDE10.2 IH; +FURO-144 PO; +FURO-145 PO; +GLUC1KIT IM; -GUAI100S11 PO; +INSU100V3 SQ; -IPRA3AMP23 IH; +LISI-768 PO; +METF-881 PO; -METH4TAB17 PO; +MULT-447 PO; +POTA8CAP20 PO; +RISP0.2515 PO; -RISP1TAB7 PO; +VANC1PLA9 IV
--- NOTE | 2022-01-03 18:45 | NUR ---
BIB RA [facility] FROM [facility],LOW O2 SAT WHILE SMOKING OUTSIDE. THE PATIENT DENIES PAIN. THE PATIENT IS ON OXYGEN AT 5L/MIN VIA NASAL CANNULA AND SATURATION IS AT 94%. THE PATIENT IS ATTACHED TO THE MONITOR. WILL CONTINUE TO MONITOR THE PATIENT.
[2022-01-03] MEDS ORDERED: IPRATROPIUM NEB FS 0.5 MG/2.5 ML AMPUL.NEB NEB ONE (19:00)
[2022-01-03] MEDS ORDERED: methylPREDNISolone SOD SUCC 125 MG/2ML VIAL IV ONE (19:00)
[2022-01-03] MEDS ORDERED: ALBUTEROL FS 2.5 MG/3 ML VIAL.NEB NEB ONE (19:00)
--- NOTE | 2022-01-03 19:15 | NUR ---
IV LINE IS ESTABLISHED, BLOOD SPECIMEN COLLECTED AND SENT TO THE LAB. THE LINE IS SALINE LOCKED.
--- NOTE | 2022-01-03 19:15 | NUR ---
MUTUEL MACHINE OPERATOR AT THE BEDSIDE
[2022-01-03] MEDS ORDERED: methylPREDNISolone SOD SUCC 125 MG/2ML VIAL ONE (19:16)
--- NOTE | 2022-01-03 19:22 | NUR ---
COVID ANTIGEN SWAB DONE AND SENT TO THE LAB
--- NOTE | 2022-01-03 19:27 | NUR ---
RT AT BEDSIDE
--- NOTE | 2022-01-03 19:40 | NUR ---
RT NOTE LATE ENTRY Pt rec'd on 5LNC via FD. Pt lethargic. ABG taken and critical results reported to MD Sylvester. Pt placed on noted BIPAP settings as charted per MD Sylvester. Alarms are set and audible. Ambu bag at bedside. Bipap plugged into red outlet. ABG to be taken within 45 minutes. Addendum: 01/03/22 at 2015 by CLINTON SOLORZANO RT Amended: Links added.
[2022-01-03 19:52] LABS: CALCIUM, SERUM 7.9 mg/dL (8.5-10.1); CHLORIDE 93 mmol/L (98-107); CREATININE 0.8 mg/dL (0.6-1.3); GLUCOSE 157 mg/dL (74-106); POTASSIUM 5.1 mmol/L (3.5-5.1); SODIUM SERUM 133 mmol/L (136-145); UREA NITROGEN, BLOOD 18 mg/dL (7-18)
[2022-01-03 19:56] LABS: CARBON DIOXIDE 41 mmol/L (21-32)
--- NOTE | 2022-01-03 19:57 | NUR ---
CRITICAL RESULT CO2 IS 41
[2022-01-03] MEDS ORDERED: IPRATROPIUM NEB FS 0.5 MG/2.5 ML AMPUL.NEB ONE (19:59)
[2022-01-03] MEDS ORDERED: ALBUTEROL FS 2.5 MG/3 ML VIAL.NEB ONE (19:59)
[2022-01-03] MEDS ORDERED: FUROSEMIDE 40 MG/4 ML VIAL IV ONE (20:00)
--- NOTE | 2022-01-03 20:00 | NUR ---
REPORT GIVEN TO NURSE EFE FOR ANGEL
[2022-01-03] MEDS ORDERED: FUROSEMIDE 40 MG/4 ML VIAL ONE (20:02)
[2022-01-03 20:04] LABS: ABG BASE EXCESS 11.7 mmol/L; ABG PCO2 109.3 mmHg (35.0-45.0); ABG PH 7.237 (7.350-7.450); ABG PO2 72.8 mmHg (75.0-100.0); COHb 7.4 % (0.5-1.5); MetHb 0.6 % (0.0-1.5); O2Hb 85.1 % (94.0-97.0); SITE, ABG Right Radial; VENT MODE, BG Nasal cannula
[2022-01-03 20:11] LABS: ALANINE AMINOTRANSFERASE 10 U/L (12-78); ALBUMIN 2.5 g/dL (3.4-5.0); ALKALINE PHOSPHATASE 73 U/L (46-116); ASPARTATE AMINOTRANSFERASE 27 U/L (15-37); BILIRUBIN,DIRECT 0.1 mg/dL (0.0-0.2); BILIRUBIN,TOTAL 0.5 mg/dL (0.2-1.0); TOTAL PROTEIN, SERUM 5.8 g/dL (6.4-8.2)
[2022-01-03] MEDS ORDERED: MORPHINE SULFATE INJ 2 MG/ML DISP.SYRIN IV PRN (20:30)
[2022-01-03] MEDS: FUROSEMIDE 20 MG/2 ML VIAL IV SCH (20:30)
[2022-01-03] MEDS ORDERED: hydrALAZINE HCL IV 20 MG VIAL IV PRN (20:30)
[2022-01-03] MEDS ORDERED: ONDANSETRON HCL/PF 4 MG/2 ML VIAL IVP PRN (20:30)
[2022-01-03] MEDS ORDERED: Z GUARD REMEDY 4 OZ OINT TP PRN (20:30)
[2022-01-03] MEDS ORDERED: ACETAMINOPHEN 325 MG TABLET PO PRN (20:30)
[2022-01-03] MEDS ORDERED: ALBUTEROL FS 2.5 MG/0.5 ML VIAL.NEB NEB PRN (20:30)
--- NOTE | 2022-01-03 20:40 | NUR ---
PT ON BIPAP: RATE 24, IPAP 24, I-TIME .80, RISE 3, EPAP 5, O2 30%
--- NOTE | 2022-01-03 20:47 | NUR ---
PT REFUSED ECHOCARDIOGRAM
--- NOTE | 2022-01-03 20:50 | NUR ---
PT REFUSED SECOND IV LINE, AWARE
[2022-01-03 21:00] LABS: BASOPHILS % (AUTO) 0.6 % (0.0-2.0); HEMATOCRIT 52 % (33-45); LYMPHOCYTES % (AUTO) 21.8 % (20.0-44.0); MEAN CORPUSCULAR HGB CONC 31 g/dl (31.0-36.0); MEAN CORPUSCULAR VOLUME 84 fL (82-100); MONOCYTES # (AUTO) 0.8 K/uL (0.1-1.30); NEUTROPHILS # (AUTO) 2.8 K/uL (1.8-8.9); NEUTROPHILS % (AUTO) 59.6 % (43.0-81.0); PLATELET COUNT (AUTO) 142 K/uL (150-450); RED BLOOD CELL COUNT(AUTO) 6.24 MIL/uL (4.0-5.2); WHITE BLOOD COUNT (AUTO) 4.7 K/uL (4.3-11.0)
--- NOTE | 2022-01-03 21:04 | NUR ---
PT UNCOOPERATIVE AND REFUSED AN ECHOCARDIOGRAM. ADVISED NIC ZELAYA.
[2022-01-03 21:12] LABS: ABG BASE EXCESS 7.7 mmol/L; ABG PCO2 72.7 mmHg (35.0-45.0); ABG PH 7.329 (7.350-7.450); ABG PO2 72.1 mmHg (75.0-100.0); MetHb 0.5 % (0.0-1.5); O2Hb 86.7 % (94.0-97.0); SITE, ABG Right Radial; VENT MODE, BG Bipap 24/5 30% RR24
--- NOTE | 2022-01-03 21:14 | NUR ---
RT NOTE Post bipap ABG taken and Results given to Nga VOSS. Addendum: 01/03/22 at 2114 by CLINTON SOLORZANO RT Amended: Links added.
[2022-01-03 21:31] LABS: LYMPHOCYTES % (MANUAL) 24 % (16-48); MONOCYTES % (MANUAL) 13 % (0-11.0); NEUTROPHILS % (MANUAL) 63 (42-76)
--- NOTE | 2022-01-03 22:20 | NUR ---
ROOM 261
--- NOTE | 2022-01-03 22:23 | NUR ---
PT REFUSED TO HAVE ANOTHER IV LINE. EXPLAINED RISK AND BENEFITS STILL DOES NOT WANT ANOTHER IV LINE.
--- NOTE | 2022-01-03 22:38 | NUR ---
REPORT GIVEN TO GELA LUCERO FOR ANGEL
[2022-01-03] MEDS ORDERED: DEXTROSE 50%-WATER 50 ML DISP.SYRIN IV PRN (23:30)
--- NOTE | 2022-01-03 23:40 | NUR ---
RN NOTE RECEIVED PT FROM ER VIA ALLEY, AWAKE, A/0 X 2-3. PT IS ADMITTED DUE TO SOB AND LOW 02 SAT. DIAGNOSIS IS ACUTE RESPI FAILURE. NO S/SX OF ACUTE RESPIRATORY DISTRESS NOTED UPON ADMISSION. RT PUT ON BIPAP. PT REFUSED TO HAVE JIMENEZ CATHETER. ALL SAFETY MEASURES IN PLACE: BED LOCKED IN LOW POSITION. BED ALARM ON. CALL LIGHT WITHIN REACH. SIDE RAILS UP X 3. WILL CONTINUE TO MONITOR CLOSELY THROUGHOUT THE SHIFT.
[2022-01-03] MEDS: HEPARIN SODIUM, PORCINE 5000 UNITS/1 ML VIAL SQ SCH (23:54)
[2022-01-04] VITALS (16 sets, daily range): BP systolic 99–153; BP diastolic 52–93
[2022-01-04] MEDS ORDERED: IPRATROPIUM/ALBUTEROL INHALER IH SCH
[2022-01-04] MEDS: ALBUTEROL FS 2.5 MG/0.5 ML VIAL.NEB NEB SCH ×4 (01:25→19:30)
[2022-01-04] MEDS: IPRATROPIUM NEB FS 0.5 MG/2.5 ML AMPUL.NEB IH SCH ×4 (01:25→19:30)
--- NOTE | 2022-01-04 07:00 | NUR ---
TOOL GRINDING TECHNICIAN Bedside report given to [facility] nurse Waldemar LUCERO. Pt asleep, easily arousable. all lines traced. vitals stable. pt clean and dry. safety measures in place. no signs of acute distress at this time. transfer to [facility] endorsed to [facility] nurse.
--- NOTE | 2022-01-04 07:15 | NUR ---
ETCHER HAND Bedside report taken from [facility] nurse Birgit LUCERO. pt awake, resting comfortable in bed. pt follows commands, moves bue and ble and repositions self in bed. pt on 4L n/c tolerating well. chris lung sounds diminished. bowel sounds present. pt nsr on monitor. bue and ble pulses present. pt continent and voids in bedpan. skin intact. all lines traced. vitals stable. safety measures in place. pt refuses care, pt refused am labs, ekg, bp cuff. charge nurse courtney LUCERO aware. will continue to monitor.
[2022-01-04] MEDS: BLOOD SUGAR DIAGNOSTIC 1 EACH STRIP VI SCH ×4 (07:30→22:58)
--- NOTE | 2022-01-04 07:53 | NUR ---
pt. is awake and alert refused to placed on oxygen, refused breathing tx, refused abg. rn notified. Addendum: 01/04/22 at 0754 by CHANCE LACKEY RT Amended: Links added.
[2022-01-04] MEDS: FUROSEMIDE 20 MG/2 ML VIAL IV SCH (08:05)
[2022-01-04] MEDS: ASCORBIC ACID 500 MG TABLET PO SCH (08:07)
[2022-01-04] MEDS: AMLODIPINE BESYLATE 10 MG TABLET PO SCH (08:09)
[2022-01-04] MEDS: LISINOPRIL (5MG) 5 MG TABLET PO SCH (08:09)
[2022-01-04] MEDS: risperiDONE 0.25 MG TABLET PO SCH ×2 (08:11→16:12)
--- NOTE | 2022-01-04 08:15 | NUR ---
AUTOMOBILE LEASING SUPERVISOR Dr Chamberlain at bedside assessing pt and updated on pt status. md aware that pt refusing treatment and meds as well as oxygen, breathing treatments and ABG. pt aggitated and aggressive. vitals stable. unable to keep bp cuff on pt on because pt refuses and removes. ok per md. no other orders at this time. will continue to monitor.
[2022-01-04] MEDS: HEPARIN SODIUM, PORCINE 5000 UNITS/1 ML VIAL SQ SCH ×2 (08:20→21:00)
[2022-01-04] MEDS: LEVOFLOXACIN 750 MG /D5W 150ML 150 ML IV SCH (09:00)
--- NOTE | 2022-01-04 11:09 | NUR ---
FURNITURE SALESPERSON Dr Nelson at bedside assessing pt and updated on pt status. md aware that pt refusing treatment, refusing medications, breathing treatments, refusing abg and labs. order for psych consult pending. Charge nurse Massiel LUCERO aware and called psych dept to inform md of consult. consult pending.
[2022-01-04] MEDS: methylPREDNISolone SOD SUCC 125 MG/2ML VIAL IV SCH ×3 (12:23→23:15)
[2022-01-04] MEDS: FUROSEMIDE 40 MG/4 ML VIAL IV SCH ×3 (12:23→20:00)
--- NOTE | 2022-01-04 12:40 | NUR ---
CRUSHER WET GROUND MICA pt sitting up in bed feeding self lunch tray. pt tolerating well. no visible signs of aspiration noted. vitals stable. will continue to monitor.
--- NOTE | 2022-01-04 16:52 | NUR ---
ANODE WORKER pt sitting up in bed feeding self dinner tray. pt tolerating well. no visible signs of aspiration noted. will continue to monitor.
--- NOTE | 2022-01-04 19:50 | NUR ---
RN NOTE Received a 66 year old female. Patient sleeping, arousable to name and touch. Patient becomes easily agitated despite calm approach, and refuses assistance, stating to get out of her room upon first introduction. Breathing appears non-labored. On 3L/min via nasal cannula. Denies sob. On tele monitoring. denies chest pain. Noted with left hand 22g PIV. Bedside commode at bedside. patient refuses help. no difficulty standing up noted. no imbalance noted. Patient refuses blood pressure monitoring. Only allowed O2 monitoring. Bed low, in locked position. Reminded to use call light when assistance is needed.
[2022-01-04] MEDS: SENNOSIDES 8.6 MG TABLET PO SCH (21:01)
[2022-01-04] MEDS: ATORVASTATIN 10 MG TABLET PO SCH (21:01)
--- NOTE | 2022-01-04 21:09 | NUR ---
RN Note Patient refused scheduled PM medications, Heparin SQ, sennokot, & Accu-chek. Explained the purpose of the medication and the risk and benefits 3x. Refused and became agitated. Safety measures in place. No bleeding noted at this time. offered fluids for hydration/snacks. Noted with one solid bowel movement inside commode. Patient denied constipation. Reminded to use call light when assistance is required. parking control officer, josep Rod.
--- NOTE | 2022-01-04 21:38 | NUR ---
RN NOTES RECEIVED REPORT FROM NIC ARGUETA. PT BEING TRANSFERRED FROM ICU TO [facility]. ALL PERTINENT ADMISSION INFO REGARDING PT NOTED. WILL WAIT FOR PT TO BE TRANSFERRED TO UNIT AND ADDRESS NEEDS ACCORDINGLY. IRONWORKER HELPER SHOP MADE AWARE.
--- NOTE | 2022-01-04 21:45 | NUR ---
RN NOTES PT RECEIVED FROM ICU VIA BED, PT A/OX2 VERY SUSPICIOUS ON 2L OF O2 VIA NC SAT BETWEEN 90-91%. ASSESSMENT AND PATIENT CARE DONE. CALL LIGHT WITHIN REACH, SAFETY MEASURES AND ISOLATION PRECAUTION IN PLACE, WILL CONTINUE MONITOR AND ASSESS THROUGHOUT THE SHIFT. WILL CARRY OUT MD ORDERS ACCORDINGLY. LAW RESEARCHER MADE AWARE.
[2022-01-04] MEDS: *INSULIN REGULAR(HUMULIN R)HUM 100 UNIT/ML VIAL SQ PRN (23:00)
[2022-01-04] MEDS ORDERED: HALOPERIDOL LACTATE INJ 5 MG/ML VIAL IM PRN (23:00)
[2022-01-05] VITALS: BP 149/71
--- NOTE | 2022-01-05 00:35 | NUR ---
RN NOTES PT PULLED OUT HER IV ACCESS, ATTEMPTED TO REINSERT BUT PT PERSISTENCY REFUSED AND GETS AGITATED. EXPLAINED RISK AND BENEFITS BUT PT STILL REFUSED. WILL CONTINUE TO ASSESS AND MONITOR THOUGHOUT THE SHIFT. WILL RE ATTEMPT LATER BUT IF PT STILL REFUSED WILL ENDORSE TO AM SHIFT FOR FOLLOW THROUGH.
[2022-01-05] MEDS: ALBUTEROL FS 2.5 MG/0.5 ML VIAL.NEB NEB SCH ×4 (01:30→19:18)
[2022-01-05] MEDS: IPRATROPIUM NEB FS 0.5 MG/2.5 ML AMPUL.NEB IH SCH ×4 (01:30→19:18)
--- NOTE | 2022-01-05 04:00 | NUR ---
RN NOTES PATIENT REMAINED TO BE IN NO SIGNS OF ACUTE RESPIRATORY DISTRESS , SAFE ENVIRONMENT MAINTAINED FOR PT. AM PATIENT CARE ASSISTANCE RENDERED. WILL CONTINUE TO MONITOR AND REASSESS FOR ANY CHANGES THROUGHOUT THE SHIFT.
[2022-01-05] MEDS: methylPREDNISolone SOD SUCC 125 MG/2ML VIAL IV SCH ×4 (05:17→23:08)
--- NOTE | 2022-01-05 05:19 | NUR ---
PT REMAINS ON NC 3L. PT REFUSED ALL BREATHING TX AND ABG.
[2022-01-05 06:00] VITALS: BP 141/68
--- NOTE | 2022-01-05 06:43 | NUR ---
RN CLOSING NOTE: PATIENT REMAINS IN ROOM IN NO SIGNS OF RESPIRATORY DISTRESS, PATIENT STILL ON 2L OF 02 VIA NC ;TOLERATING WELL SATURATING @ 90% SP02. NO IV ACCESS; PT REFUSED INTERVENTION. PT NON COMPLAINT. HAD PSYCH EVAL LAST NIGHT WITH DR. PITT. SAFETY MEASURES IMPLEMENTED, BED IN LOWEST POSITION, LOCKED, SIDE RAILS UP, CALL LIGHT WITHIN REACH. ALL NEEDS AND ORDERS ADDRESSED DURING THE SHIFT. PATIENT KEPT CLEAN AND COMFORTABLE WITHIN THE SHIFT. PATIENT ENDORSED TO INCOMING SHIFT RN WITH STABLE VITAL SIGN AND FOR CONTINUITY OF CARE.
--- NOTE | 2022-01-05 07:33 | NUR ---
BRINDA RN OPENING NOTE: PATIENT REMAINS IN ROOM. PATIENT IS ALERT AND ORIENTED X2. PATIENT SHOWS NO SIGNS OF PAIN OR DISCOMFORT. PATIENT IS ON ROOM AIR. PATIENT IS ON TELE MONITOR CURRENTLY SINUS RHYTHM/SINUS TACHYCARDIA. SKIN IS INTACT. PATIENT IS AMBULATORY. PATIENT HAS NO IV ACCESS. TRIED TO START AN IV.PATIENT REFUSED. EVEN AFTER EXPLAINING BENEFITS. ALL SAFETY MEASURES IN PLACE. BED IN LOWEST POSITION, LOCKED, SIDE RAILS UP, CALL LIGHT WITHIN REACH. WILL CONTINUE TO ASSESS THROUGHOUT SHIFT
[2022-01-05] MEDS: BLOOD SUGAR DIAGNOSTIC 1 EACH STRIP VI SCH ×4 (07:50→21:28)
[2022-01-05] MEDS: INSULIN REGULAR, HUMAN 100 UNIT/ML 3 ML VIAL SQ PRN (07:52)
--- NOTE | 2022-01-05 08:08 | NUR ---
RN NOTE PATIENT REFUSED CHEST X-RAY, BLOOD PRESSURE
--- NOTE | 2022-01-05 08:55 | NUR ---
SPOKE WITH DR. GUERRERO. NOTIFIED MD THAT PATIENT IS REFUSING NOCTURNAL BIPAP AND OXYGEN SATURATION. AWARE
[2022-01-05] MEDS: ASCORBIC ACID 500 MG TABLET PO SCH (09:00)
[2022-01-05] MEDS: HEPARIN SODIUM, PORCINE 5000 UNITS/1 ML VIAL SQ SCH ×3 (09:00→22:48)
[2022-01-05] MEDS: LEVOFLOXACIN 750 MG /D5W 150ML 150 ML IV SCH (09:00)
[2022-01-05] MEDS: LISINOPRIL (5MG) 5 MG TABLET PO SCH (09:00)
[2022-01-05] MEDS: risperiDONE 0.25 MG TABLET PO SCH ×2 (09:00→17:00)
[2022-01-05] MEDS: FUROSEMIDE 20 MG/2 ML VIAL IV SCH (09:00)
[2022-01-05] MEDS: AMLODIPINE BESYLATE 10 MG TABLET PO SCH (09:00)
[2022-01-05] MEDS ORDERED: BUMETANIDE INJ 8 MG in IV NS 0.9% 48 ML IV ONE (09:00)
--- NOTE | 2022-01-05 09:40 | NUR ---
NOTIFIED MD FLORES PATIENT IS REFUSING ALL MEDICATIONS AND DOESN'T HAVE IV ACCESS, REFUSING ALL MEDICATIONS, AND REFUSING ATTEMPT TO START AN IV. AWARE Addendum: 01/05/22 at 0945 by JAYLEN ALDANA RN PROVIDED EDUCATION ON MEDICATION AND STILL REFUSING MEDICATIONS
--- NOTE | 2022-01-05 10:17 | NUR ---
parviz rn note strangely refused to insert iv hl, explained how importance but still refused. will cont to encourage to place and will inform to md
--- NOTE | 2022-01-05 17:34 | NUR ---
tele parviz note patient is not compliant. patient is refusing all medications. even after explaining all benefits of medication and providing education. patient still refuses. patient refuses blood pressure checks, chest xray, oxygen saturation and morning labs. MD car
--- NOTE | 2022-01-05 18:50 | NUR ---
PATIENT REFUSED LABS Addendum: 01/05/22 at 1917 by JAYLEN ALDANA RN PT IS MED SURG STATUS
--- NOTE | 2022-01-05 18:51 | NUR ---
MS RN NOTE: PATIENT REMAINS IN ROOM. PATIENT IS ALERT AND ORIENTED X2. PATIENT SHOWS NO SIGNS OF PAIN OR DISCOMFORT. PATIENT IS ON ROOM AIR. PATIENT REMOVED TELE MONITOR. SKIN IS INTACT. PATIENT IS AMBULATORY. PATIENT HAS NO IV ACCESS. TRIED TO START AN IV.PATIENT REFUSED. EVEN AFTER EXPLAINING BENEFITS. PATIENT IS NONCOMPLIANT WITH ALL MEDICATIONS, BLOOD PRESSURE CHECK, VITAL SIGN CHECK, O2 SATURATION, LABS, CHEST X-RAY. ALL SAFETY MEASURES IN PLACE. BED IN LOWEST POSITION, LOCKED, SIDE RAILS UP, CALL LIGHT WITHIN REACH Addendum: 01/05/22 at 1916 by JAYLEN ALDANA RN MS CLOSING NOTE
--- NOTE | 2022-01-05 19:10 | NUR ---
RN NOTES RECEIVED PT FOR CONTINUITY OF CARE. PATIENT A/OX2 IN NO S/SX OF ACUTE DISTRESS AT THIS TIME; CURRENTLY ON ROOM AIR WITH O2 SAT AT 92%; NO IV ACCESS AT THIS TIME; PT REFUSED. PT NON COMPLIANT SINCE ADMISSION INFORMED AND NOTIFIED CIRILO VOSS (Abraham ARRIOLA NP) MD ACKNOWLEDGED. WILL ENSURE SAFETY MEASURES WITHIN THE SHIFT. PATIENT BED ALARM IS ON. HEAD OF BED ELEVATED. BED IS LOCKED, IN LOWEST POSITION AND SIDE RAILS UP. CALL LIGHT WITHIN REACH OF THE PATIENT. WILL CONTINUE TO MONITOR AND REASSESS FOR ANY CHANGES AND WILL CARRY OUT ANY ONGOING AND ACTIVE MD ORDER.
[2022-01-05 20:00] VITALS: BP 155/80
[2022-01-05] MEDS: ATORVASTATIN 10 MG TABLET PO SCH ×2 (21:28→22:48)
[2022-01-05] MEDS: SENNOSIDES 8.6 MG TABLET PO SCH ×2 (21:28→22:49)
[2022-01-05] MEDS: *INSULIN REGULAR(HUMULIN R)HUM 100 UNIT/ML VIAL SQ PRN (21:29)
--- NOTE | 2022-01-05 22:45 | NUR ---
RN NOTES DR PITT WENT TO SEE PT FOR MD ROUNDS, RN AT BEDSIDE. MD RE-EXPLAINED IMPORTANCE OF TAKING HER MEDS PT BEEN NON COMPLIANT WITH MEDICATIONS AND OTHER INTERVENTIONS RENDERED. PT REFUSED SEVERAL TIMES BUT WAS ABLE TO CONVINCE PT TO TAKE HER MEDS, RN PULLED OUT MISSED MEDICATION PER MD REQUEST AND MD ORDERED ONE TIME ORDER FOR RISPERDAL 2MG ONE TIME ORDER. MEDS TAKEN BY PT WHILE MD AT BEDSIDE. BUT PT STILL REFUSED TO HAVE IV ACCESS INSERTED. WILL CONTINUE TO MONITOR AND ASSESS THROUGHOUT THE SHIFT.
[2022-01-05] MEDS ORDERED: risperiDONE 1 MG TABLET PO ONE (23:00)
[2022-01-06] MEDS: ALBUTEROL FS 2.5 MG/0.5 ML VIAL.NEB NEB SCH ×2 (01:25→07:35)
[2022-01-06] MEDS: IPRATROPIUM NEB FS 0.5 MG/2.5 ML AMPUL.NEB IH SCH ×2 (01:25→07:35)
[2022-01-06 04:00] VITALS: BP 141/73
[2022-01-06] MEDS: methylPREDNISolone SOD SUCC 125 MG/2ML VIAL IV SCH (05:17)
--- NOTE | 2022-01-06 06:51 | NUR ---
RN CLOSING NOTE: PATIENT REMAINS IN ROOM IN NO SIGNS OF RESPIRATORY DISTRESS, ON ROOM AIR;TOLERATING WELL SATURATING @97% SP02. NO IV ACCESS; PT REFUSED INTERVENTION. 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 HAD PSYCH ROUNDING LAST NIGHT WITH DR. PITT. SAFETY MEASURES IMPLEMENTED, BED IN LOWEST POSITION, LOCKED, SIDE RAILS UP, CALL LIGHT WITHIN REACH. ALL NEEDS AND ORDERS ADDRESSED DURING THE SHIFT. PATIENT KEPT CLEAN AND COMFORTABLE WITHIN THE SHIFT. PATIENT ENDORSED TO INCOMING SHIFT RN WITH STABLE VITAL SIGN AND FOR CONTINUITY OF CARE.
--- NOTE | 2022-01-06 07:25 | NUR ---
RN OPENING NOTES RECEIVED PATIENT IN BED, RESTING WITH EYES CLOSED. EASILY WAKENS TO VERBAL AND PHYSICAL STIMULI. ON RA WITH BREATHING EVEN AND UNLABORED. NO SIGNS OF DISTRESS NOTED AT THIS TIME. PATIENT REMAINS WITH NO IV ACCESS, MD IS AWARE. SAFETY MEASURES IMPLEMENTED, BED IN LOWEST POSITION, LOCKED, SIDE RAILS UP X2, CALL LIGHT WITHIN REACH. WILL CONTINUE TO MONITOR PATIENT
[2022-01-06 07:53] LABS: BASOPHILS % (AUTO) 0.4 % (0.0-2.0); HEMATOCRIT 54 % (33-45); HEMOGLOBIN 16.4 g/dL (11.5-14.8); LYMPHOCYTES # (AUTO) 1.3 K/uL (0.8-4.8); LYMPHOCYTES % (AUTO) 23.1 % (20.0-44.0); MEAN CORPUSCULAR HGB CONC 30 g/dl (31.0-36.0); MEAN CORPUSCULAR VOLUME 83 fL (82-100); MONOCYTES # (AUTO) 0.6 K/uL (0.1-1.30); MONOCYTES % (AUTO) 10.4 % (2.0-12.0); NEUTROPHILS # (AUTO) 3.8 K/uL (1.8-8.9); NEUTROPHILS % (AUTO) 66.1 % (43.0-81.0); PLATELET COUNT (AUTO) 121 K/uL (150-450); RED BLOOD CELL COUNT(AUTO) 6.53 MIL/uL (4.0-5.2); WHITE BLOOD COUNT (AUTO) 5.7 K/uL (4.3-11.0)
[2022-01-06 08:19] LABS: ALBUMIN 2.6 g/dL (3.4-5.0); BILIRUBIN,TOTAL 0.5 mg/dL (0.2-1.0); CALCIUM, SERUM 8.3 mg/dL (8.5-10.1); CREATININE 0.9 mg/dL (0.6-1.3); MAGNESIUM 2.1 mg/dL (1.8-2.4); PHOSPHORUS 3.1 mg/dL (2.5-4.9); POTASSIUM 4.2 mmol/L (3.5-5.1); TOTAL PROTEIN, SERUM 5.6 g/dL (6.4-8.2)
[2022-01-06] MEDS: FUROSEMIDE 20 MG/2 ML VIAL IV SCH ×2 (09:00→09:17)
[2022-01-06] MEDS: HEPARIN SODIUM, PORCINE 5000 UNITS/1 ML VIAL SQ SCH (09:00)
[2022-01-06] MEDS ORDERED: LEVOFLOXACIN (250MG) 250 MG TABLET PO SCH (09:00)
--- NOTE | 2022-01-06 09:00 | NUR ---
RN NOTES PATIENT EXHIBITING SIGNS OF INCREASED RESP EFFORT. CURRENT RESP RATE 24 WITH O2 SAT OF 80% ON RA. PLACED PATIENT ON 2L OF O2 VIA NC. WILL CONTINUE TO MONITOR O2 STATUS.
[2022-01-06 09:18] VITALS: BP 151/85
[2022-01-06] MEDS: ASCORBIC ACID 500 MG TABLET PO SCH (09:18)
[2022-01-06] MEDS: AMLODIPINE BESYLATE 10 MG TABLET PO SCH (09:18)
[2022-01-06] MEDS: LISINOPRIL (5MG) 5 MG TABLET PO SCH (09:18)
[2022-01-06] MEDS: BLOOD SUGAR DIAGNOSTIC 1 EACH STRIP VI SCH (09:19)
[2022-01-06] MEDS: INSULIN REGULAR, HUMAN 100 UNIT/ML 3 ML VIAL SQ PRN (09:21)
--- NOTE | 2022-01-06 09:27 | NUR ---
RN NOTES UNABLE TO ADMINISTER LASIX IV INJECTION. PATIENT CONTINUES TO REFUSE IV ACCESS. LASIX VIAL WASTED WITH SECOND NURSE. PHARMACY INFORMED.
[2022-01-06] MEDS ORDERED: risperiDONE 1 MG TABLET PO SCH (10:00)
--- NOTE | 2022-01-06 11:40 | NUR ---
CRUISE COUNSELOR NOTES PATIENT MEDICALLY STABLE FOR DISCHARGE. ALL BELONGINGS ACCOUNTED FOR. PATIENT REFUSED TO SIGN DOCUMENTS. NO IV ACCESS. PATIENT REFUSED SKIN ASSESSMENT. EXIT CARE PACKET PROVIDED TO EMT UPON TRANSFER. PATIENT LEFT HOSPITAL ACCOMPANIED BY 2 EMT VIA AMBULANCE.
== END 2022-01-06 13:06 | DRG 189 ==
LOC: ER 18:43 → ICU 22:22 → TELE1 01-04 21:28 → TELE-TD 01-04 21:46 → MEDSG1 01-05 18:49
PROVIDERS: ADMIT Internal Medicine
PROC: 5A09357 Assistance with Respiratory Ventilation, Less than 24 Consecutive Hours, Continuous Positive Airway Pressure (ICD-10-PCS; principal; 2022-01-03)
DX: J96.21 Acute and chronic respiratory failure with hypoxia (principal); E44.0 Moderate protein-calorie malnutrition; J44.1 Chronic obstructive pulmonary disease with (acute) exacerbation; J44.0 Chronic obstructive pulmonary disease with (acute) lower respiratory infection; F20.0 Paranoid schizophrenia; J98.11 Atelectasis; I50.32 Chronic diastolic (congestive) heart failure; J96.22 Acute and chronic respiratory failure with hypercapnia; I11.0 Hypertensive heart disease with heart failure; G47.30 Sleep apnea, unspecified; Z20.822 Contact with and (suspected) exposure to COVID-19; E11.42 Type 2 diabetes mellitus with diabetic polyneuropathy; E78.5 Hyperlipidemia, unspecified; D69.6 Thrombocytopenia, unspecified; Z88.0 Allergy status to penicillin; Z79.84 Long term (current) use of oral hypoglycemic drugs; Z79.51 Long term (current) use of inhaled steroids; Z79.4 Long term (current) use of insulin; Z79.899 Other long term (current) drug therapy; Z82.49 Family history of ischemic heart disease and other diseases of the circulatory system; Z83.3 Family history of diabetes mellitus; Z98.890 Other specified postprocedural states; E88.09 Other disorders of plasma-protein metabolism, not elsewhere classified; Z91.19 Patient's noncompliance with other medical treatment and regimen; F31.9 Bipolar disorder, unspecified; F17.200 Nicotine dependence, unspecified, uncomplicated; D75.1 Secondary polycythemia; Z86.16 Personal history of COVID-19; Y95 Nosocomial condition
CPT/HCPCS: 36415; 36600; 71045-TC; 80048-TC; 80053-TC; 80076-TC; 82803-TC; 82962-TC; 83605-TC; 83735-TC; 83880; 84100-TC; 84484-TC; 85025-TC; 87040-TC; 87081-TC; 94760-TC; 94799-TC; 99082-TC; C9803; G0378; J1630; J1644; J1815; J1940; J1956; J2930; J3490